=== PATIENT | female | born 1965 | race Caucasian/White ===

== ENCOUNTER 2024-02-23 08:56 | Outpatient (CLI) | payer OTHER, SELFPAY ==
[2024-02-23 09:20] VITALS: PULSE 88; RESP 18; O2SAT 98
[2024-02-23] MEDS: albuterol 2.5 mg/3 mL Neb INHALATION (09:20)
[2024-02-23 09:25] VITALS: PULSE 85
== END 2024-02-23 08:57 | disposition home or self-care (01) ==
PROVIDERS: Visit Provider Dermatology
DX: R06.00 Dyspnea, unspecified (principal)
CPT/HCPCS: 94060; J7613

== ENCOUNTER 2024-03-19 10:10 | Outpatient (CLI) | payer OTHER, SELFPAY ==
--- NOTE | 2024-03-19 10:20 | XR_ITS ---
WS: [id number] HIP WITH PELVIS LEFT TECHNIQUE: 3 views of the left hip with pelvis CLINICAL INFORMATION: L HIP PAIN COMPARISON: None. FINDINGS: Osteopenia. Prior postoperative changes RIGHT GINO. Advanced degenerative arthritis LEFT hip with subc hondral cystic change and advanced joint space narrowing. Hypertrophic changes about the LEFT acetabu lum. Degenerative arthritis lower lumbar spine. Pelvic phleboliths. XR/XR hip LT 2-3V wo/w pel* [id number] IMPRESSION: 1. Osteopenia. 2. Prior RIGHT GINO. 3. Advanced arthritis LEFT hip with joint space narrowing and subchondral cyst ic change involving the femoral head. Hypertrophic changes about the LEFT aceta bulum. Tonnis classification: grade 3: large cysts in femoral head/acetabulum or joint space obliteration/severe narrowing or severe femoral head deformity vs AVN
== END 2024-03-19 10:11 | disposition home or self-care (01) ==
LOC: RAD 10:13
PROVIDERS: PCP Nurse Practitioner; Visit Provider Dermatology
DX: M13.852 Other specified arthritis, left hip (principal); M25.552 Pain in left hip
CPT/HCPCS: 73502

== ENCOUNTER 2025-08-12 18:24 | Inpatient (IN) | payer SELFPAY ==
[2025-08-12] VITALS (45 sets, daily range): BP systolic 86–205; BP diastolic 61–148; PULSE 74–115; RESP 16–36; TEMP 36.6; O2SAT 93–100; BMI 27.4
--- NOTE | 2025-08-12 18:22 | ECG_ITS ---
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 Measurements Intervals [place] Rate: 106 P: 27 [place]: 170 QRS: -32 QRSD: 98 T: -13 QT: 359 QTc: 479 Interpretive Statements SINUS TACHYCARDIA LEFT AXIS DEVIATION [QRS AXIS < -30] LEFT VENTRICULAR HYPERTROPHY AND ST-T CHANGE [VOLTAGE CRITERIA PLUS ST/T ABNORMALITY] POSSIBLE SEPTAL MYOCARDIAL INFARCTION , POSSIBLY ACUTE [30 ms Q WAVE IN V1/V2] ACUTE CO Possible high lateral wall CO No previous ECG available for comparison Electronically Signed On 08-12-2025 23:24:23 CDT by Bianca Hubbard M.D. [email or web address]
--- NOTE | 2025-08-12 18:26 | XRR_ITS ---
PROCEDURE INFORMATION: Exam: XR Chest Exam date and time: 08/12/2025 6:33 PM Age: 60 years old Clinical indication: Pain; Chest pressure; Stemi; Additional info: Chest pain TECHNIQUE: Imaging protocol: Radiologic exam of the chest. Views: 1 view. COMPARISON: No relevant prior studies available. FINDINGS: Lungs: Unremarkable. No consolidation. Low lung volumes. Pleural spaces: Unremarkable. No pleural effusion. No pneumothorax. Heart/Mediastinum: Unremarkable. No cardiomegaly. Bones/joints: Unremarkable. Single-view. XR/XR chest 1V portable [id number] IMPRESSION: No acute findings.
--- NOTE | 2025-08-12 18:30 | ED_ITS ---
HPI - Chest Pain 2 General: Chief Complaint: Chest Pain Stated Complaint: stemi Time Seen by Provider: 08/12/25 18:25 History of Present Illness: 60-year-old female with a history of hyp ertension and obesity who presents to the emergency room with chest pain by ambulance from home. EMS had called and prior to arrival and EKG appeared that she is having a STEMI. STEMI was called at that time in the field. Her pain has worsened. Initially was substernal and now radiates to her shoulders. She has had some nausea but no vomiting. She is very diaphoretic. No known cardiac history Related Data Home Medications ?Medication ?Instructions ?Recorded ?Confirmed albuterol sulfate 90 mcg/actuation 2 puff inhalation Q 4H PRN 08/03/23 08/03/23 aerosol inhaler amlodipine 2.5 mg tablet 2.5 mg PO DAILY 08/03/23 benzonatate 100 mg capsule 100 mg PO TID PRN cough 08/03/23 gabapentin 100 mg capsule 300 mg PO .HS 08/03/2308/03 (Neurontin) lisinopril 20 1 tab PO DAILY 08/03/2307/09 mg-hydrochlorothiazide 12.5 mg tablet metoprolol succinate 50 mg 50 mg PO DAILY 08/03/23 tablet,extended release 24 hr ondansetron HCl 8 mg tablet 8 mg PO Q8H PRN 08/03/23 0 08/03/23 rosuvastatin 40 mg tablet 40 mg PO DAILY 08/03/2307/09 Allergies Allergy/AdvReac Type Severity Reaction Status Date / Time No Known Allergies Allergy Verified 08/03/23 08:51 Review of Systems 2 Narrative: Constitutional symptoms: Negative except as documented in HPI. Skin symptoms: Negative except as documented in HPI. Eye symptoms: Negative except as documented in HPI. ENMT symptoms: Negative except as documented in HPI. Respiratory symptoms: Negative except as documented in HPI. Cardiovascular symptoms: Negative except as documented in HPI. Gastrointestinal symptoms: Negative except as documented in HPI. Genitourinary symptoms: Negative except as documented in HPI. Musculoskeletal symptoms: Negative except as documented in HPI. Neurologic symptoms: Negative except as documented in HPI. Psychiatric symptoms: Negative except as documented in HPI. Endocrine symptoms: Negative except as documented in HPI. PFSH ED 2 PFSH: Medical History (Updated 08/12/25 @ 18:56 by Bibi Hobbs MD) Hypertension Family History Mother Hypertension Social History Smoking and tobacco/nicotine status: current every day tobacco/nicotine user cigarettes Packs smoked per day: 1 Physical Exam 2 Narrative: EXAM NARRATIVE: General: Alert, no acute distress. Skin: Warm, dry. Head: Normocephalic, atraumatic. Neck: Supple, trachea midline. Eye: Extraocular movements are intact. Ears, nose, mouth and throat: mucosa moist. Cardiovascular: Regular, Normal peripheral perfusion. Respiratory: Lungs are clear to auscultation, respirations are non-labored, breath sounds are equal, Symmetrical chest wall expansion. Gastrointestinal: Soft, Nontender, Non distended Musculoskeletal: Normal ROM, no deformity. Neurological: Alert and oriented, No focal neurological deficit observed. Psychiatric: Cooperative, appropriate mood & affect. Course 2 Vital Signs: Vital signs: Vital Signs Temperature 98 F 08/12/25 18:28 Pulse Rate 115 H 08/12/25 18:55 Respiratory Rate 17 08/12/25 18:55 Blood Pressure 201/148 08/12/25 18:55 Pulse Oximetry 95 08/12/25 18:55 Oxygen Delivery Me thod Room Air 08/12/25 18:55 MDM - Chest Pain Medical Decision Making Differential diagnosis for patient with chest pain includes but is not limited to and based on the above HPI, review of systems and physical exam: Pneumonia. unstable angina. angina. Acute coronary syndrome / CT. Pulmonary embolism. Costochondritis / musculoskeletal. Pleurisy. Pericarditis. Esophageal spasm. Pancreatis. Cholecystitis. Orders placed to evaluate differential diagnosis based on the above differential, HPI and physical exam EKG: Time 1823. Rate 106. Sinus tachycardia. ST elevation anterior leads with reciprocal depression, no ectopy, normal MA & QRS intervals, this was reviewed and interpreted by myself the emergency room physician at 1825. 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 No leukocytosis. No anemia. Remainder of labs pending at the time patient went to the [facility] I reviewed the patient's medical record. Consultation: I spoke with Dr. Rosales who is on-call for cardiology. He is taking the patient to the [facility]. Assessment and plan: STEMI Chest pain Accelerated hypertension ? IV labetalol, 600 Plavix, 600 mg p.o. Plavix, aspirin, heparin bolus -I discussed the patient with the hospitalist on-call who is admitting the patient. - Discussed findings and plan with patient. Answered any questions. - All laboratory values were reviewed and interpreted personally by myself, the ER physician - All imaging was reviewed and interpreted personally by myself, the ER physician. - Evaluation and treatment of this problem were appropriate in the emergency setting Lab Data 08/12/25 18:36 08/12/25 18:36 Laboratory Results WBC 8.54 10^3/uL (3.29-11.43) 08/12/25 18:36 RBC 5.67 10^6/uL (3.85-5.65) H 08/12/25 18:36 Hgb 16.20 g/dL (11.27-16.99) 08/12/25 18:36 Hct 48.8 % (36-47) H 08/12/25 18:36 MCV 86.1 fl (85-98) 08/12/25 18:36 MCH 28.6 pg (27-33) 08/12/25 18:36 MCHC 33.2 g/dL (30-55) 08/12/25 18:36 RDW 12.6 % (12.1-15.1) 08/12/25 18:36 Plt Count 277 10^3/cmm (157-399) 08/12/25 18:36 MPV 10.0 fL (7.4-10.4) 08/12/25 18:36 Neut % (Auto) 67.3 % 08/12/25 18:36 Lymph % (Auto) 21.9 % 08/12/25 18:36 Noble % (Auto) 6.3 % 08/12/25 18:36 Eos % (Auto) 2.8 % 08/12/25 18:36 Baso % (Auto) 1.5 % 08/12/25 18:36 Neut # (Auto) 5.74 10^3/uL (1.8-7.7) 08/12/25 18:36 Lymph # (Auto) 1.9 10^3/uL (0.8-4.8) 08/12/25 18:36 Noble # (Auto) 0.5 10^3/uL (0.2-0.9) 08/12/25 18:36 Eos # (Auto) 0.2 10^3/uL (0.0-0.8) 08/12/25 18:36 Baso # (Auto) 0.1 10^3/uL (0.0-0.1) 08/12/25 18:36 Nucleated RBC % (auto) 0 % 08/12/25 18:36 Nucleated RBCs # 0.0 /100WBC 08/12/25 18:36 XR interpretation done by ED provider, pending radiology final review Discharge Plan Discharge Patient Disposition: Admitted As Inpatient Clinical Impression: STEMI (ST elevation myocardial infarction), Hypertension Condition: Stable Coding Level of Care Code ED Clinical Nurse Occupational Medicine for Chg Fwd Heart Score HEART Score Components History: Highly Suspicious EKG: Significant ST-deviation Age: 45-64 yrs Risk Factors: 1 or 2 Risk Factors Troponin: Baseline Trop <16 ng/L HEART Score RESULT HEART Score: 6
--- NOTE | 2025-08-12 18:36 | XACV_ITS ---
Exam Room: 2 Ht: 157 cm Wt: 82 kg BSA: 1.92 m2 Gender: Female : 1965 Exam Priority: Routine Procedure(s): Procedure Description: Diagnostic procedure Procedure Description: PCI procedure Procedure Description: Coronary IVUS Procedure Description: Drug Eluting Coronary Stent Procedure Description: PTCA Procedure Description: Coronary Thrombectomy Procedure Description: Miscellaneous Procedure Description: Angio-Seal Procedure Description: ACT Procedure Description: Coronary Angiography Anjel FLOYD; Diagnostic Cath Status: Emergency Diagnostic Findings * Left Main has mild luminal irregularities. * Proximal Left Anterior Descending: total thrombotic occlusion, SHERIDAN: 0 flow. * Mid Right Coronary Artery: severe 80-90% stenosis, SHERIDAN: 3 flow. * Mid Circumflex to Distal Circumflex: severe 90% stenosis, SHERIDAN: 3 flow. * Coronary angiography shows right dominance. PCI Status: Emergency PCI Indication: STEMI - Immediate PCI for STEMI Interventional Findings * Procedure detail: Left main artery was engaged with XB 3.5 guide catheter. Heparin was administered to maintain anticoagulation. We crossed totally occluded proximal LAD with a run-through guidewire. Pronto aspiration catheter was used to perform manual thrombectomy. Post thrombectomy, there was slow/no reflow in left circumflex artery, likely secondary to thrombus embolization. Patient became unstable with severe hypotension, no palpable pulse. CPR was started. We wired the LCx and did ballooning. Epi and neosynephrine given. Total CPR time of less than a minute. Flow in left circumflex artery was restored. Patient's blood pressure normalized. We then performed balloon angioplasty of proximal to mid LAD with 2.5x15 mm semicompliant balloon. IVUS was used to size the artery. This was followed by ballooning with 2.5x20mm NC balloon. We then placed a 2.75 x 30 mm resolute Sally drug-eluting stent from proximal to mid LAD. There was still residual stenosis at distal edge so we treated that with 2.5 x 15 mm EDGARDO. The stents were postdilated with 3.0 x 27 mm NC balloon. Distal edge dissection was noted. A third overlapping 2.25 x 15 mm resolute Sally drug-eluting stent was placed. At this time final angiogram showed excellent stent expansion and SHERIDAN-3 flow. 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 * Proximal Left Anterior Descendin% stenosis treated with a Balloon, MDT NC EUPHORA RX 2.98Y80TX BALLOON, MDT NC EUPHORA RX 3.72P52QK BALLOON, and MDT R SALLY 2.75X30 EDGARDO. 0% residual stenosis, SHERIDAN: 3 flow. * Mid Left Anterior Descendin% stenosis treated with a MDT R SALLY 2.5X15 EDGARDO, and MDT R SALLY 2.25X15 EDGARDO. 0% residual stenosis, SHERIDAN: 3 flow. * 1st Diagonal: 70% stenosis treated with a AB MINI TREK 2.00X12 RX BALLOON. 0% residual stenosis, SHERIDAN: 3 flow. Conclusions 1. Total thrombotic occlusion of proximal LAD S/p PCI with 3 stents. Severe mid RCA stenosis. Reviewed will perform staged PCI. Also has mid to distal circumflex artery with severe stenosis. Plan for staged PCI. 2. Proximal Left Anterior Descending was treated with a Balloon, Balloon, Balloon, and Drug Eluting Stent. 3. Mid Left Anterior Descending was treated with a Drug Eluting Stent, and Drug Eluting Stent. 4. 1st Diagonal was treated with a Balloon. Recommendations * Dual antiplatelet therapy with aspirin and plavix. * Aggrastat for 4 hours. * Order echocardiogram. * Transfer to ICU. Interventional RX Recommendation: PCI w/o planned CABG Diagnostic RX Recommendation: PCI w/o planned CABG Anticoagulation: Heparin Pressures Phase:Rest AO : 142 / 98 ( 117 ) @ 3:27:46 PM 151 / 136 ( 144 ) @ 3:27:46 PM 197 / 158 ( 175 ) @ 3:27:46 PM 114 / 87 ( 100 ) @ 3:27:46 PM 104 / 85 ( 94 ) @ 3:27:46 PM Clinical Evaluation EBL: 5mL-10mL Procedural Details Pre-Procedure Time Out. Identified patient by full name and date of as verbalized by the patient/guarantor. Does the consent match the physician's order: N/A Emergent; Informed Consent not obtained due to time critical life threat. Accurate & Complete Informed Consent: N/A Emergent; Informed Consent not obtained due to time critical life threat. Inpatient/Outpatient History & Physical on Chart: N/A Emergent; Informed Consent not obtained due to time critical life threat. If H&P is completed, is and addenduem needed: N/A Emergent; Informed Consent not obtained due to time critical life threat; If yes, is the addendum complete: N/A Emergent; Informed Consent not obtained due to time critical life threat. Visualize and Verify Site with Patient/Guarantor: N/A. Relevant Radiology Images available: N/A Emergent; Informed Consent not obtained due to time critical life threat. Pre-op teaching completed and patient verbalized understanding. The risks, benefits, and alternatives of sedation and/or procedure were discussed by physician. The patient agrees to continue. Procedure started. [facility] Clinical Fraility Score: 4: Vulnerable. Employee Communications Coordinator Indications: ACS <= 24 hours. Chest Pain Symptom Assessment: Typical Angina Symptoms. Cardiovascular Instability: Yes, if yes, Persistant Ischemic Symptoms. Correct patient, site and procedure confirmed by cath team. PERRLA. 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 Lungs clear x 5 lobes. IV Site on Arrival: 20 gauge in the right anticubital. IV Site on Arrival: 20 gauge in the left anticubital. IV Fluids: 0.9% NaCl at KVO. 0 mL infused prior to laboratory courier. Pre Procedural Pulses: right radial was 2+. Oxygen started at 2liters/min via nasal canula. AP pads on from the ED. right groin was prepped with chloroprep then draped in the usual sterile fashion. right radial was prepped with chloroprep then draped in the usual sterile fashion. Baseline sample Acquired. HR: 77 BPM. Physician notified. Patient's family in the laboratory courier waiting.room. Dr. Rosales will update at the completion of the procedure. Equipment: 6F - Radial. Cardiac Cath Pack. ACIST Manifold Kit Model BT 2000. Heparinized Saline (2 units/mL), 1000 mL bag. Physician arrived. Physician scrubbed in. Immediate Pre-Procedure Time Out. Correct Patient: N/A Emergent; Informed Consent not obtained due to time critical life threat; Correct Procedure: N/A Emergent; Informed Consent not obtained due to time critical life threat; Correct Site: N/A Emergent; Informed Consent not obtained due to time critical life threat; Correct Patient Position: N/A Emergent; Informed Consent not obtained due to time critical life threat; Correct Supplies: N/A Emergent; Informed Consent not obtained due to time critical life threat; Dried Flammable Prep: N/A Emergent; Informed Consent not obtained due to time critical life threat; Blood Products Available: N/A Emergent; Informed Consent not obtained due to time critical life threat;. Lidocaine 1% infiltrated to the right radial. Current Diagnosis : STEMI. Arterial access obtained. PCI Indication: STEMI. 6 turkish XB 3.5 guide catheter was inserted over the the exchange J wire. Catheter out over the exchange J wire. Aborting radial access, will move to femoral access. A TR Band was successful obtaining hemostatsis at the Right Radial artery insertion site. Lidocaine 1% infiltrated to the right groin. Arterial access obtained with micropuncture set using ultrasound guidance. 6 turkish XB 3.5 guide catheter was inserted over the exchange J wire. Runthrough guidewire was advanced through the guide catheter to lesion in the prox LAD. Pronto aspiration catheter in OTW. Aspiration of the Prox LAD performed. Pronto aspiration catheter out OTW. Inflation number : 1 A AB TREK 2.50X20 RX BALLOON was prepped and advanced across the Prox LAD , then inflated to 12 TAIWO for 0:11 seconds. Balloon out. Runthrough #2 guidewire was advanced through the guide catheter to lesion in the prox Circ. Inflation number: 1 The AB TREK 2.50X20 RX BALLOON was reinflated across the 1st Ob Blanche, to 0 TAIWO for 0:00 seconds. Inflation number: 2 The AB TREK 2.50X20 RX BALLOON was reinflated across the 1st Ob Blanche, to 0 TAIWO for 0:01 seconds. code blue. IVUS catheter in OTW. Runthrough #2 out. IVUS of the LAD performed. IVUS catheter out OTW. Inflation number : 2 A MDT NC EUPHORA RX 2.19S65FI BALLOON was prepped and advanced across the Prox LAD , then inflated to 12 TAIWO for 0:09 seconds. Inflation number: 3 The MDT NC EUPHORA RX 2.74D15HS BALLOON was reinflated across the Prox LAD, to 14 TAIWO for 0:12 seconds. Balloon out. Results checked. IVUS catheter in OTW. IVUS of the LAD performed. IVUS catheter out OTW. OXY mask placed at 15 lpm. Inflation Number : 6 A MDT R SALLY 2.75X30 EDGARDO -Lot Number# [id number] Exp. was prepped and advanced across the Prox LAD. The stent was deployed at 12 TAIWO for 0:20 seconds. Stent balloon out over wire. IVUS catheter in OTW. IVUS of the LAD performed. IVUS catheter out OTW. Family updated by Kellee Ospina RN. Inflation Number : 1 A MDT R SALLY 2.5X15 EDGARDO -Lot Number# [id number] Exp. was prepped and advanced across the Mid LAD. The stent was deployed at 12 TAIWO for 0:14 seconds. Stent balloon out over wire. Guideliner in OTW. Inflation number : 4 A MDT NC EUPHORA RX 3.32Z68PF BALLOON was prepped and advanced across the Prox LAD , then inflated to 12 TAIWO for 0:16 seconds. Inflation number: 5 The MDT NC EUPHORA RX 3.47P96BO BALLOON was reinflated across the Prox LAD, to 18 TAIWO for 0:12 seconds. Balloon out. Wire out. Runthrough guidewire was advanced through the guide catheter to lesion in the prox LAD. Inflation Number : 2 A HATTIE Dominguez SALLY 2.25X15 EDGARDO -Lot Number# [id number] Exp. was prepped and advanced across the Mid LAD. The stent was deployed at 12 TAIWO for 0:16 seconds. Stent balloon out over wire. Results checked. Runthrough repositioned to diaganol. Inflation number : 1 A AB MINI TREK 2.00X12 RX BALLOON was prepped and advanced across the 1st Diag , then inflated to 10 TAIWO for 0:13 seconds. Balloon out. Runthrough repositioned to CX, unable to cross. ACT drawn. Results out of range HI. Will redraw. Wire out. Guide catheter out OTW. A 5 turkish JR4 catheter in OTW. ACT drawn. Results out of range HI. Multiple views taken of right coronary artery. Catheter removed OTW. A Right femoral angiogram was performed to determine safe placement of closure device. A Angio-Seal VIP ([place]) was successful obtaining hemostatsis at the Right Femoral artery insertion site. Angioseal placed without complications. No signs or symptoms of hematoma noted. Sterile dressing applied per usual sterile fashion. Lot # [id number] Exp. . Post Procedure: right dorsalis pedis pulse Doppled. Post Procedure: right posterior tibial pulse Doppled. PERRLA. 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 No VTE prophylaxis required. Medication's Wasted: Nitro = 49.6 mg. Medication's Wasted: Heparin = 1000 units. Medication's Wasted: Other = Versed 1 mg. Medication's Wasted: Other = Fentanyl 75 mcg. Total IV fluids: 100 mL. Post-op diagnosis: Thrombectomy and EDGARDO to Prox LAD x 1, EDGARDO to Mid LAD x 1. Complications: none. Estimated blood loss: 5mL-10mL. Responsiveness - Normal response to verbal stimuli; alert and oriented, PERRLA. Airway - Unaffected, no intervention required; spontaneous ventilation. Circulation: W/N/L, pulses unchanged. Nausea/Vomiting: No. Vital chart was stopped. Procedure completed. Patient transferred by bed to ICU. Access Site Site: Right Radial artery Sheath Size: 6 Fr Hemostasis Method: TR Band Hemostasis Success: Successful Site: Right Femoral artery Sheath Size: 6 Fr Hemostasis Method: Angio-Seal VIP ([place]) Hemostasis Success: Successful Procedure Medications Start: 6:50 PM Stop: 6:50 PM Medication: Zofran (ondansetron) Amount: 4 mg Route: I.V. Start: 6:51 PM Stop: 6:51 PM Medication: Versed Amount: 1 mg Route: I.V. Start: 6:55 PM Stop: 6:55 PM Medication: Nitrogylcerin Amount: 200 mcg Route: I.A. Start: 7:07 PM Stop: 7:07 PM Medication: Heparin Amount: 4000 units Route: I.V. Start: 7:14 PM Stop: 7:14 PM Medication: Aggrastat 12.5 mg/250 mL Amount: 41 ml Route: I.V. bolus Start: 7:17 PM Stop: 7:17 PM Medication: Neosynephrine Amount: 100 mcg Route: I.V. Start: 7:20 PM Stop: 7:20 PM Medication: Epinephrine Amount: 1 mg Route: I.V. Start: 7:26 PM Stop: 7:26 PM Medication: Hydralazine Amount: 10 mg Route: I.V. Start: 7:27 PM Stop: 7:27 PM Medication: Aggrastat 12.5 mg/250 mL Amount: 14.8 ml/hr Route: I.V. drip Start: 7:58 PM Stop: 7:58 PM Medication: Nitrogylcerin Amount: 200 mcg Route: I.A. Start: 7:58 PM Stop: 7:58 PM Medication: Heparin Amount: 1000 units Route: I.V. Start: 8:18 PM Stop: 8:18 PM Medication: Fentanyl Amount: 25 mcg Route: I.V. I, the attending physician, have reviewed and verified all procedure medications. Yes, all medications given per verbal order Report Signatures Finalized by Parker Rosales MD on 08/13/2025 08:56 AM
[2025-08-12] MEDS: heparin 5,000 unit/mL INJ 1 mL 4000 UNIT IVP (18:40)
[2025-08-12] MEDS: morphine 4 mg/mL SDV 1 mL IVP (18:40)
[2025-08-12] MEDS: labetalol 5 mg/mL SDV 20mL 20 MG IVP (18:41)
--- NOTE | 2025-08-12 18:42 | PM.HP ---
Providers/Chief Complaint Admitting Physician: Parker Rosales MD Primary Care Provider: TARA Martinez Chief Complaint: stemi History of Present Illness Samuel Buck is a 60 year old female with past medical history of hypertension and hyperlipidemia who has been brought by EMS with complaints of chest pain. EKG is consistent with ST elevations in septal and lateral leads with reciprocal changes in inferior leads. Her blood pressure is elevated. She is tachycardic with a heart rate of 106 bpm. Review of Systems Card: Reports: chest pain Medications/Allergies Home Medications ?Medication ?Instructions ?Recorded ?Confirmed ?Last Taken ?Type albuterol sulfate 90 mcg/actuation 2 puff inhalation Q4H PRN 08/03/23 08/03/23 Unknown History aerosol inhaler amlodipine 2.5 mg tablet 2.5 mg PO DAILY 08/03/23 08/03/23 Unknown History benzonatate 100 mg capsule 100 mg PO TID PRN cough 08/03/23 08/03/23 Unknown History gabapentin 100 mg capsule 300 mg PO .HS 08/03/23 08/03/23 Unknown History (Neurontin) lisinopril 20 1 tab PO DAILY 08/03/23 08/03/23 Unknown History mg-hydrochlorothiazide 12.5 mg tablet metoprolol succinate 50 mg 50 mg PO DAILY 08/03/23 08/03/23 Unknown History tablet,extended release 24 hr ondansetron HCl 8 mg tablet 8 mg PO Q8H PRN 08/03/23 08/03/23 Unknown History rosuvastatin 40 mg tablet 40 mg PO DAILY 08/03/23 08/03/23 Unknown History Allergies Allergy/AdvReac Type Severity Reaction Status Date / Time No Known Allergies Allergy Verified 08/03/23 08:51 PFSH Acute PFSH: Medical History (Updated 08/12/25 @ 18:56 by Bibi Hobbs MD) Hypertension Family History Mother Hypertension Social History Smoking and tobacco/nicotine status: current every day tobacco/nicotine user cigarettes Packs smoked per day: 1 Vitals/I&O/Wt Last Vital Signs Temp 98 F 08/12/25 18:28 Pulse 111 H 08/12/25 18:28 Resp 16 08/12/25 18:40 BP 205/99 08/12/25 18:28 Pulse Ox 97 08/12/25 18:28 O2 Del Method Room Air 08/12/25 18:28 Weight last 48 hrs Weight 160 lb Physical Exam Narrative: GENERAL: Patient is alert, awake and oriented x3. [] NECK: No jugular vein distension. [] HEENT: No cyanosis. No icterus. No pallor. [] HEART: Regular S1 and S2. LUNGS: Clear to auscultate bilaterally. [] CENTRAL NERVOUS SYSTEM: Grossly nonfocal. [] EXTREMITIES: Lower extremities with no edema bilaterally. Data 08/12/25 18:36 08/12/25 18:36 A&P Assessment and plan 1. STEMI (ST elevation myocardial infarction): 2. Hypertension: Plan: Patient has presented with acute ST elevation [place] with elevations in septal and lateral leads. Patient going emergently for cardiac catheterization with PCI Patient received loading doses of aspirin, Plavix and heparin bolus We will obtain echocardiogram post procedure PDMP PDMP Reviewed: Not Reviewed Attestations Medical Necessity Statement*: Care expected to cross 2 midnights. Patient has presented with acute STEMI and going for emergent cardiac catheterization with PCI Coding Level of Care Code Acute Code for [facility] Diagnoses STEMI (ST elevation myocardial infarction) I21.3 Hypertension I10
[2025-08-12 18:46] LABS: Hematocrit 48.8 % (36-47); Hemoglobin 16.20 g/dL (11.27-16.99); Mean Corpuscular HGB Conc 33.2 g/dL (30-55); Mean Corpuscular Hemoglobin 28.6 pg (27-33); Mean Corpuscular Volume 86.1 fl (85-98); Nucleated Red Blood Cells % 0 %; Platelet Count 277 10^3/cmm (157-399); Red Blood Count 5.67 10^6/uL (3.85-5.65); White Blood Count 8.54 10^3/uL (3.29-11.43)
[2025-08-12 18:58] LABS: INR 0.89 (0.8-1.2); Partial Thromboplastin Time 28.5 SECONDS (23.9-36.7); Prothrombin Time 12.70 SECONDS (12.1-14.9)
[2025-08-12 19:10] LABS: Troponin(5th) Baseline 44 ng/L (0-10)
[2025-08-12 19:17] LABS: Alanine Aminotransferase 21 U/L (0-33); Albumin Level 4.3 g/dL (3.5-5.2); Alkaline Phosphatase 135 U/L (35-105); Aspartate Amino Transferase 26 U/L (0-32); Blood Urea Nitrogen 22 mg/dL (8-23); Calcium 10.2 mg/dL (8.5-10.5); Carbon Dioxide 22 mmol/L (22-29); Chloride 103 mmol/L (98-107); Creatinine Clr Calc Pharmacy 48.6782; Globulin 2.5 g/dL (1.3-4.6); Glucose 144 mg/dL (65-115); Lipase 34 U/L (13-60); NT Pro B Type Natriuretic Pept 2428 pg/mL (0-125); Osmolality Calculated 296 mOsm/kg (285-295); Sodium 140 mmol/L (136-145); Total Protein 6.8 g/dL (6.6-8.7)
[2025-08-12 19:36] LABS: Anion Gap 19.4 (5-19); Potassium 4.4 mmol/L (3.5-5.1)
--- NOTE | 2025-08-12 21:03 | PM.PROC ---
Procedure Note: Date of procedure: 08/12/25 Pre-procedure diagnosis: STEMI Post-procedure diagnosis: other (Total thrombotic occlusion of proximal LAD status post PCI with 3 stents.) Procedure: Proximal LAD has total thrombotic occlusion. Status post PCI with 3 stents. Patient had distal embolization of thrombus post manual thrombectomy. Flow in both left circumflex artery and LAD got very slow briefly. Patient went into PEA. Less than 1 minutes of chest compressions and 1 dose of epi was administered. Pulse came back and blood pressure increased. Patient was conscious immediately. Was not intubated. Distal circumflex has severe stenosis. Mid RCA has severe stenosis. These vessels will be treated as a staged procedure Dual antiplatelet therapy with aspirin and plavix High intensity statin therapy Aggrastat for 4 hours Performing Provider: Parker Rosales Estimated blood loss (mL): 10 Complications: None Condition: stable Disposition: ICU Coding Level of Care Code Acute Code for [facility]
[2025-08-12] MEDS: ondansetron 2 mg/ML SDV 2 mL 4 MG IVP (21:56)
--- NOTE | 2025-08-12 22:16 | PM.CONSULT ---
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 Cardiology was notified and Dr. Rosales took the patient to [facility] as a primary patient and started cardiac catheterization. 1 stent placed on the proximal LAD and 2 stents placed in the mid LAD and during this procedure patient arrested only briefly for 30 seconds CPR was started and the patient received 1 mg of epinephrine and came back and awake and alert with no issues did not even have a chance to plan on any intubation and patient did not needed. The ICU staff called Dr. Rosales that the patient has thrown up clots of blood and for that reason hospitalist were consulted to further evaluate and optimize. I have seen and evaluated patient here in the ICU bed 12. The primary nurse related that the patient was reportedly threw up with the EMS on route to the hospital and the details of the colon of the vomitus was not related. Following the vomitus patient then vomited while in the ICU post procedure and looking whitaker with a systolic blood pressure in the 80s. I gave patient 500 mL of normal saline and the blood pressure came up consistently to be 105 systolic and 106 systolic with a mean in the 90s patient verbalized that he she is feeling much better than before. Patient is very fair complected and does have a warm Color not sher at this time of my evaluation. Patient received a bolus of 80 mg of Protonix and initiated on 40 mg IV Protonix twice daily with the next dose in the morning. Patient denies any chest pain denies any other discomfort. Verbalized feeling better on my repeated questions. H&H is drawn and pending at this time. Patient admitting hemoglobin was 16, patient is a smoker. Patient denies of any sore throat Review of Systems Narrative: System review upon 10 organ review were significant for cardiovascular system with acute coronary syndrome with ST elevation [place] and status post stent placement and also bright red blood emesis significant for gastrointestinal system Medications/Allergies Home Medications ?Medication ?Instructions ?Recorded ?Confirmed ?Last Taken ?Type albuterol sulfate 90 mcg/actuation 2 puff inhalation Q4H PRN 08/03/23 08/03/23 Unknown History aerosol inhaler amlodipine 2.5 mg tablet 2.5 mg PO DAILY 08/03/23 08/03/23 Unknown History benzonatate 100 mg capsule 100 mg PO TID PRN cough 08/03/23 08/03/23 Unknown History gabapentin 100 mg capsule 300 mg PO .HS 08/03/23 08/03/23 Unknown History (Neurontin) lisinopril 20 1 tab PO DAILY 08/03/23 08/03/23 Unknown History mg-hydrochlorothiazide 12.5 mg tablet metoprolol succinate 50 mg 50 mg PO DAILY 08/03/23 08/03/23 Unknown History tablet,extended release 24 hr ondansetron HCl 8 mg tablet 8 mg PO Q8H PRN 08/03/23 08/03/23 Unknown History rosuvastatin 40 mg tablet 40 mg PO DAILY 08/03/23 08/03/23 Unknown History Allergies Allergy/AdvReac Type Severity Reaction Status Date / Time No Known Allergies Allergy Verified 08/03/23 08:51 Current Medications Generic Name Dose Route Start Last Admin Trade Name Freq PRN Reason Stop Dose Admin Sodium Chloride 1,000 mls @ 100 mls/hr 08/12/25 21:15 08/12/25 21:57 Sodium Chloride 0.9% IV 100 mls/hr .Q10H MILEY Administration Ondansetron HCl 4 mg 08/12/25 21:36 08/12/25 21:56 Ondansetron 2 Mg/Ml Sdv 2 Ml IVP 4 mg Q6H PRN Administration NAUSEA AND VOMITING PFSH Acute PFSH: Medical History Hypertension Family History Mother Hypertension Social History Smoking and tobacco/nicotine status: current every day tobacco/nicotine user cigarettes Packs smoked per day: 1 Vitals/I&O/Wt Last Vital Signs Temp 98 F 08/12/25 18:28 Pulse 80 08/12/25 22:00 Resp 31 H 08/12/25 22:00 BP 93/77 08/12/25 22:00 Pulse Ox 98 08/12/25 22:00 O2 Del Method Nasal Cannula 08/12/25 20:52 O2 Flow Rate 6 08/12/25 20:32 Weight last 48 hrs Weight 94.4 kg Weight 72.575 kg Physical Exam Narrative: Generally patient is in no apparent distress relies supine in bed with the head of the bed up at 45 degrees. Patient looks slightly pale but at the same time with warm color and warm to touch on the face and chest Vital sign stabilizing systolic blood pressure in the 80s went up to 106 systolic with a MAP of 93 post IV bolus of 500 cc/h x 1 of normal saline HEENT normocephalic/atraumatic neck neck is supple cardiovascular heart rate is regular lungs are pretty much clear abdomen soft nontender nondistended unremarkable extremities are intact and right groin region intact with Angio-Seal patient has good pulses in the affected extremities. Data 08/12/25 18:36 08/12/25 18:36 A&P Assessment and plan 1. Hematemesis: 2. STEMI (ST elevation myocardial infarction): 3. Hypertension: 4. Cardiopulmonary arrest: 5. Transient hypotension: Plan: #1 Acute hematemesis with streaks of clots of blood - Patient had some vomiting en route to the emergency room with EMS preprocedure - H&H obtained and pending - Protonix 80 mg IV bolus given - Protonix 40 mg IV every 12 next dose tomorrow morning - H&H presenting was 16 for the hemoglobin, patient is a smoker - Will follow up and monitor - Patient might have had a violent vomiting and route to the emergency room because send some bleed in the esophagus - Patient did not have coffee ground emesis bed bright red blood with clots - Will continue to monitor and optimize - Surgery may follow through with this patient outpatient or when these acute processes over if patient continues to not have any emesis #2 ST elevation [place] - Primary patient of cardiology - Cardiology is managing patient status post cardiac catheterization with 1 stent placement to proximal LAD And another 2 stent placement to mid LAD at cardiac catheterization -Patient is following up with care as directed by cardiology #3 Intra procedural transient cardiopulmonary arrest, 30 seconds -Brief chest compression with 1 mg of epinephrine with patient responding and awake -Patient was not intubated and did okay -Patient in ICU for close monitoring and care #4 Transient hypotension in ICU -Patient recovered with 500 cc of normal saline bolus -Patient verbalized feeling better and doing okay #5 Transient cardiac respiratory arrest - Intraoperatively, critical zone quickly with a brief chest compression and 1 mg of IV epinephron - Patient recovered fully awake and alert able to answer questions and doing okay. #6 History of hypertension -Patient now normotensive -Does not need any antihypertensive medication at this time -Monitor blood pressure to continue to perfuse the kidney #7 GI and DVT prophylaxis in place PDMP PDMP Reviewed: Not Reviewed Consult Attestations Medical Necessity Statement: Patient is status post myocardial infarction and needed at least 2 midnights for further optimization of care along with hematemesis likely esophagus bleed Coding Level of Care Code 14000 Diagnoses Hematemesis K92.0 STEMI (ST elevation myocardial infarction) I21.3 Hypertension I10 Cardiopulmonary arrest I46.9 Transient hypotension I95.9 Time Spent (min) 50
[2025-08-12 22:49] LABS: Hematocrit 39.2 % (36-47); Hemoglobin 12.90 g/dL (11.27-16.99)
[2025-08-13] VITALS (109 sets, daily range): BP systolic 84–166; BP diastolic 56–115; PULSE 73–116; RESP 12–43; TEMP 35.5–37.6; O2SAT 82–100
--- NOTE | 2025-08-13 00:09 | ECG_ITS ---
[employer] Test Date: 2025-08-13 Pat Name: Samuel Buck Department: Room: ICU12 Gender: Female Marketing Associate: : 1965 Requested By: Bibi Ruffin Order Number: [id number] Jose MD: Bianca Hubbard M.D. Measurements Intervals [place] Rate: 80 P: -19 MS: 148 QRS: 50 QRSD: 103 T: 123 QT: 486 QTc: 563 Interpretive Statements SINUS RHYTHM WITH OCCASIONAL VENTRICULAR PREMATURE COMPLEXES SEPTAL MYOCARDIAL INFARCTION , PROBABLY RECENT [40+ ms Q WAVE IN V1/V2] ACUTE IL Recent high lateral wall IL Compared to ECG 08/12/2025 18:22:32 Ventricular premature complex(es) now present Sinus tachycardia no longer present Left-axis deviation no longer present Left ventricular hypertrophy no longer present ST (T wave) deviation no longer present Myocardial infarct finding still present Electronically Signed On 08-13-2025 23:56:41 CDT by Bianca Hubbard M.D. [email or web address]
--- NOTE | 2025-08-13 01:04 | PC.NURSE ---
[address] Rosales notified. zofran ordered. Per MD he will consult with dr. kelly 2144 Dr. Rosales at bedside. hematoma noted at femoral site. patients color noted. no new orders at this time 2210 Dr kelly called. requested at bedside from RN. BP dropping. patients color noted. 500 cc bolus ordered. 2[address] Dr kelly at bedside. H&H ordered 2345 Dr kelly notified of hgl drop 16.2 to 12.9. Q4h H&H ordered 0015 TR band removed. radial pulse good. no hematoma radially. dressing placed
[2025-08-13 02:07] LABS: Troponin 5 6HR > 10000 ng/L (0-10); Troponin 5 6HR Delta 9956.0 ng/L (0-12)
--- NOTE | 2025-08-13 02:59 | CTR_ITS ---
PROCEDURE INFORMATION: Exam: CTA Abdomen and Pelvis With Contrast Exam date and time: 08/13/2025 3:13 AM Age: 60 years old Clinical indication: Injury or trauma; Additional info: Abd pain and hematemesis TECHNIQUE: Imaging protocol: Computed tomographic angiography of the abdomen and pelvis with contrast. Exam focused on the arteries. 3D rendering (Not supervised by radiologist): MIP and/or 3D reconstructed images were created by the technologist. Radiation optimization: All CT scans at this facility use at least one of these dose optimization techniques: automated exposure control; mA and/or kV adjustment per patient size (includes targeted exams where dose is matched to clinical indication); or iterative reconstruction. Contrast material: OMNI 350; Contrast volume: 100 ml; Contrast route: INTRAVENOUS (IV); COMPARISON: CR XR hip LT 2-3V wo/w pel* [id number] 03/19/2024 10:31 AM RADIATION DOSE METRICS: Total DLP (mGy-cm): 1307.95 FINDINGS: Lungs: Patchy peripheral distribution of ground-glass opacification associated with the lungs bilaterally is noted. Parenchymal opacification associated with the lower lobes bilaterally, to a greater degree on the right side is also noted. Pleural spaces: There is no evidence of pleural effusion or pneumothorax. Pulmonary arteries: There is no evidence of pulmonary embolism. Heart: An arterial stent has been applied to the left anterior descending artery. There is no evidence of right heart strain. Aorta: Suboptimal opacification of the abdominal aorta is noted. The contrast column fades further distally at the distal abdominal aorta extending into the iliac vessels bilaterally. Atheromatous calcific plaque associated with the infrarenal abdominal aorta extends into the iliac arteries bilaterally. Celiac and mesenteric arteries: No occlusion or significant stenosis. Renal arteries: No occlusion or significant stenosis. Right iliac arteries: Suboptimal opacification. Left iliac arteries: Suboptimal opacification. Liver: No mass. Gallbladder and biliary ducts: There is high density material throughout the gallbladder. This likely represents vicarious excretion related to the recent angiographic procedure. Associated cholelithiasis is not excluded. No ductal dilation. Pancreas: Unremarkable. No mass. No ductal dilation. Spleen: Unremarkable. No splenomegaly. Adrenal glands: Unremarkable. No mass. Kidneys and ureters: Excreted contrast associated with the kidneys bilaterally is noted. The right kidney is atrophic with a associated cortical scarring. Stomach and bowel: Unremarkable. No obstruction. No mucosal thickening. Appendix: No evidence of appendicitis. Intraperitoneal space: There is a retroperitoneal hemorrhage on the right side. Infiltrative high density material representing hemorrhage in the retroperitoneum on the right side is noted. The infiltrative changes extend into the right groin. Lymph nodes: Unremarkable. No enlarged lymph nodes. Urinary bladder: Excreted contrast associated with the urinary bladder is noted Reproductive: Unremarkable as visualized. Bones/joints: There is a right total hip replacement. Associated hardware artifact is noted. 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 Soft tissues: Unremarkable. CT/CT [facility]dpel [id number] IMPRESSION: 1. There is retroperitoneal hemorrhage on the right side. There are diffuse infiltrative hemorrhagic changes which extend into the right groin. Recent arterial catheterization is suspected. 2. Suboptimal opacification of the abdominal aorta is noted with limited opacification of the iliac vessels bilaterally. Further limitation resulting from hardware artifact related to right total hip replacement is also noted. Hence, no evidence of active bleeding is appreciated, though this is not excluded. 3. Vicarious excretion of contrast associated with the gallbladder is noted and there is evidence of bilateral renal excretion and opacification of the urinary bladder. This indicates recent administration of iodinated contrast, possibly related to recent angiographic evaluation using right groin access. 4. Bilateral pulmonary parenchymal consolidation associated with the lower lobes is noted. This may indicate evidence of bilateral aspiration. 5. Additional patchy ground-glass opacification with a relatively peripheral distribution throughout the lungs bilaterally is also noted. 6. Incidental observations are detailed above.
--- NOTE | 2025-08-13 03:03 | PC.NURSE ---
patient with another of episode of hematemesis, Right upper and lower quadrant of abdomen very tender. Notified dr kelly. ct abd chest pelvis ordered
[2025-08-13] MEDS: iohexol 350 mg/mL 500 mL Btl (per mL) IV (03:29)
--- NOTE | 2025-08-13 03:50 | PC.NURSE ---
RN spoked with dr. anand regarding patient status, patient back from ct. color pale. pain in right side. RN requesting for type and screen. Type and screen ordered, 2 units prbc ordered on hold if needed.
[2025-08-13 04:20] LABS: Hematocrit 37.7 % (36-47); Hemoglobin 12.20 g/dL (11.27-16.99); Mean Corpuscular HGB Conc 32.4 g/dL (30-55); Mean Corpuscular Hemoglobin 28.8 pg (27-33); Mean Corpuscular Volume 88.9 fl (85-98); Nucleated Red Blood Cells % 0 %; Platelet Count 273 10^3/cmm (157-399); Red Blood Count 4.24 10^6/uL (3.85-5.65); White Blood Count 11.90 10^3/uL (3.29-11.43)
--- NOTE | 2025-08-13 04:31 | PC.NURSE ---
Dr. Anand called RN. Per she talked to DR. rosales and have decided to just give one unit of prbcs. give 40 of lasix and order a CT abd pelvis w/o contrast at 0700. RN asked if aspirin or plavix should be held, per Dr. anand she will call Dr. Rosales and call RN back.
[2025-08-13 04:50] LABS: Blood Urea Nitrogen 25 mg/dL (8-23); Calcium 8.5 mg/dL (8.5-10.5); Carbon Dioxide 13 mmol/L (22-29); Chloride 104 mmol/L (98-107); Creatinine Clr Calc Pharmacy 51.2761; Glucose 227 mg/dL (65-115); Osmolality Calculated 290 mOsm/kg (285-295); Sodium 134 mmol/L (136-145)
[2025-08-13 04:59] LABS: Anion Gap 22.1 (5-19); Potassium 5.1 mmol/L (3.5-5.1)
[2025-08-13] MEDS: meropenem 1,000 mg SDV 1000 MG IVP (05:27)
[2025-08-13] MEDS: doxycycline 100 MG in sodium chloride 0.9% (plus) 100 ML IV (05:27)
[2025-08-13 06:34] LABS: Hematocrit 36.3 % (36-47); Hemoglobin 12.20 g/dL (11.27-16.99)
--- NOTE | 2025-08-13 08:43 | P.PN_ITS ---
<Statement entered by Shawn Sandoval 08/15/25 11:52> Patient was cared for in conjunction with an advanced practice practitioner.? I reviewed the chart and all pertinent data including imaging, telemetry, and laboratory results.? I discussed the patient in detail with the advanced practice practitioner.? Please see?their note for progress note, testing results and agreed upon plan of care for the patient. Subjective 2 Subjective: She had a run of VT last night, had retroperitoneal bleed from right groin, from oozing at the Angio-Seal site. There is soft hematoma now, the abdomen and flank is tender to touch. Hemoglobin is 12.2 this morning. Hold blood products for now. Heart rate slightly tachycardic. Vitals/I&O/Wt Last Vital Signs Temp 97.6 F 08/13/25 07:00 Pulse 93 08/13/25 06:35 Resp 21 H 08/13/25 06:35 BP 152/97 08/13/25 06:35 Pulse Ox 100 08/13/25 06:35 O2 Del Method Nasal Cannula 08/13/25 06:00 O2 Flow Rate 4 08/13/25 05:00 08/12/25 08/13/25 08/13/25 22:59 06:59 14:59 Intake Total 500 / 690 190 / 690 Balance 500 / 690 190 / 690 Weight last 48 hrs Weight 188 lb 7.924 oz Weight 208 lb 1.862 oz Weight 160 lb Physical Exam 2 Const: COMMON NORMALS: no acute distress and patient oriented x3 GENERAL APPEARANCE: cooperative ORIENTATION/CONSCIOUSNESS: Yes awake, Yes oriented to person, Yes oriented to place and Yes oriented to time Chest: COMMONS NORMALS: normal inspection of the chest and normal palpation of entire chest wall CHEST: Yes Symmetrical chest wall rise Resp: COMMON NORMALS: normal respiratory effort, No retractions, No use of accessory muscles and clear to auscultation bilaterally AUSCULTATION: clear to auscultation bilaterally Cardio: COMMON NORMALS: regular rate, regular rhythm, S1 normal heart sound present, S2 normal heart sound present, No gallops present (Cardio), No clicks present (Cardio), No murmurs present (Cardio) and No rub (Cardio) RATE: r egular rate RHYTHM: regular rhythm HEART SOUNDS: S1 normal heart sound present and S2 normal heart sound present PERIPHERAL PULSES: radial pulses present positive right 2+ and femoral pulses present positive right 2+ Neuro: COMMON NORMALS: patient oriented x3 and moves all extremities S ENSORIUM/ORIENTATION: Yes oriented to person, Yes oriented to place and Yes oriented to time Skin: WOUNDS: Yes surgical site (no hematoma palpable) Details: no odor Data 08/13/25 06:27 08/13/25 03:57 A&P Assessment and plan 1. STEMI (ST elevation myocardial infarction): 2. Hypertension: 3. Cardiopulmonary arrest: Plan: Will keep in ICU today, monitoring right groin and retroperitoneal bleed. She has hemoglobin ordered at 10AM. No chest pain. Echocardiogram just completed. No signs of heart failure currently. Blood pressure stable, no hypotension. PDMP PDMP Reviewed: Not Reviewed Attestations 2 Medical Necessity Statement*: Post STEMI Coding Level of Care Code Acute Code for [facility] Diagnoses STEMI (ST elevation myocardial infarction) I21.3 Hypertension I10 Cardiopulmonary arrest I46.9
[2025-08-13] MEDS: pantoprazole 40 mg SDV IVP ×2 (08:57→21:11)
--- NOTE | 2025-08-13 09:07 | PC.NURSE ---
PABLO Castaneda approved holding ordered blood and associated lasix ivp for hgb of 12.2
[2025-08-13 10:25] LABS: Hematocrit 37.1 % (36-47); Hemoglobin 12.00 g/dL (11.27-16.99)
--- NOTE | 2025-08-13 12:23 | P.PN_ITS ---
Subjective 2 Subjective: Hospital course, labs appreciated. Patient lying comfortably in bed today morning. Did have episode of nonsustained V. tach overnight on telemetry. Hemodynamically stable for now. Vitals/I&O/Wt Last Vital Signs Temp 97.6 F 08/13/25 07:00 Pulse 98 08/13/25 11:00 Resp 18 08/13/25 11:00 BP 166/85 08/13/25 11:00 Pulse Ox 97 08/13/25 10:00 O2 Del Method Nasal Cannula 08/13/25 09:06 O2 Flow Rate 4 08/13/25 09:06 08/12/25 08/13/25 08/13/25 22:59 06:59 14:59 Intake Total 500 / 500 190 / 690 Balance 500 / 500 190 / 690 Weight last 48 hrs Weight 85.5 kg Weight 94.4 kg Weight 72.575 kg Physical Exam 2 Narrative: Generally patient is in no apparent distress relies supine in bed with the head of the bed up at 45 degrees. Patient looks slightly pale but at the same time with warm color and warm to touch on the face and chest Vital sign stabilizing systolic blood pressure in the 80s went up to 106 systolic with a MAP of 93 post IV bolus of 500 cc/h x 1 of normal saline HEENT normocephalic/atraumatic neck neck is supple cardiovascular heart rate is regular lungs are pretty much clear abdomen soft nontender nondistended unremarkable extremities are intact and right groin region intact with Angio- Seal patient has good pulses in the affected extremities. Data 08/13/25 10:17 08/13/25 03:57 A&P Assessment and plan 1. Blood loss anemia: Anemia most likely in setting of retroperitoneal hematoma. Possible concern for hematemesis though not sure. Hemoglobin so far stable. Monitor hemoglobin and evening. 2. Hematemesis: Monitor hemoglobin as above. Continue with Protonix twice daily along with Carafate ACHS. 3. STEMI (ST elevation myocardial infarction): Post emergent PCI. Appreciate troponin cycled. Appreciate echocardiogram. Continue with DAPT, statin. Can start on metoprolol 25 mg twice daily. Check A1c, lipid panel. Rest treatment as per cardiology team. 4. Acute kidney injury: Most likely in setting of hypotension during cardiopulmonary arrest. Too early for ROX. Creatinine now 1.3. Associated with metabolic acidosis. Check urine lites, urinalysis. Continue with IV fluids. Repeat BMP in afternoon. Medical reconciliation done for nephrotoxic drugs. 5. Hypertension: Goal blood pressure less than 140/90 mmHg. Metoprolol as above. Depending on the EF most likely can start on Entresto if the blood pressures remain elevated and if renal functions remained stable. 6. Cardiopulmonary arrest: For a brief moment during PCI. Patient is slightly confused. If continues to have episodes of confusion or dysarthria will benefit from CT head. 7. Transient hypotension: Blood pressure so far stable. Target mean artery pressure 65. 8. Retroperitoneal hematoma: 9. Metabolic acidosis: Plan: Check A1c, lipid panel, iron panel, vitamin B12 and folate levels. Aspiration pneumonia: Seen on CT chest. Oxygen supplementation keeping saturation over 90%. Sputum culture. Switch to IV ceftriaxone and oral azithromycin for now for community-acquired pneumonia. Can plan to finish a 5-day course. Full code Cardiac diet Protonix for PUD prophylaxis SCD for DVT prophylaxis. If hemoglobin remains stable can plan to start on subcu heparin. PDMP PDMP Reviewed: Not Reviewed Attestations 2 Medical Necessity Statement*: As per primary team Diagnoses Blood loss anemia D50.0 Hematemesis K92.0 STEMI (ST elevation myocardial infarction) I21.3 Acute kidney injury N17.9 Hypertension I10 Cardiopulmonary arrest I46.9 Transient hypotension I95.9 Retroperitoneal hematoma K68.3 Metabolic acidosis E87.20
[2025-08-13 12:56] LABS: Estmated Average Glucose 97; Hemoglobin A1C 5.0 % (4.0-6.0)
[2025-08-13 13:14] LABS: Iron 83 ug/dL (37-145); Thyroid Stimulating Hormone 2.09 uIU/mL (0.27-4.20); Vitamin B12 399 pg/mL (232-1245)
[2025-08-13] MEDS: cefTRIAXone 1,000 mg SDV 1000 MG IVP (13:23)
[2025-08-13 14:16] LABS: Total Iron Binding Capacity 250 mcg/dl; Unsaturated Iron Binding 167 ug/dL (112-347)
--- NOTE | 2025-08-13 15:59 | CTR_ITS ---
PROCEDURE INFORMATION: Exam: CT Head Without Contrast Exam date and time: 08/13/2025 4:40 PM Age: 60 years old Clinical indication: Other: Confusion TECHNIQUE: Imaging protocol: Computed tomography of the head without contrast. Radiation optimization: All CT scans at this facility use at least one of these dose optimization techniques: automated exposure control; mA and/or kV adjustment per patient size (includes targeted exams where dose is matched to clinical indication); or iterative reconstruction. COMPARISON: No relevant prior studies available. RADIATION DOSE METRICS: Total DLP (mGy-cm): 699.88 FINDINGS: Brain: No hemorrhage. Unremarkable white matter. No mass effect. Moderate diffuse parenchymal volume loss. Extensive chronic microangiopathic white matter changes. Cerebral ventricles: No ventriculomegaly. Paranasal sinuses: Frothy secretions in the right maxillary sinus. Air-fluid level in the right sphenoid sinus. Mild mucosal thickening involving the right ethmoid air cells.. Mastoid air cells: Visualized mastoid air cells are well aerated. Bones: Unremarkable. No acute fracture. Soft tissues: Unremarkable. CT/CT head wo con* [id number] IMPRESSION: 1. No acute intracranial abnormality. 2. Moderate diffuse parenchymal volume loss. 3. Extensive chronic microangiopathic white matter changes.
--- NOTE | 2025-08-13 17:12 | PC.NURSE ---
Patient confusion increased, Leonel OIL EXPELLER OPERATOR at bedside about time change noted, OIL EXPELLER OPERATOR spoke to dr daley and Yolie orders for CT and cbc recieved
[2025-08-13 17:30] LABS: Hematocrit 31.2 % (36-47); Hemoglobin 10.40 g/dL (11.27-16.99); Mean Corpuscular HGB Conc 33.3 g/dL (30-55); Mean Corpuscular Hemoglobin 29.0 pg (27-33); Mean Corpuscular Volume 86.9 fl (85-98); Nucleated Red Blood Cells % 0 %; Platelet Count 242 10^3/cmm (157-399); Red Blood Count 3.59 10^6/uL (3.85-5.65); White Blood Count 15.90 10^3/uL (3.29-11.43)
--- NOTE | 2025-08-13 18:28 | PC.NURSE ---
patient becoming restless, med orderd from Dr. Pedro tavarez
[2025-08-13 18:54] LABS: Anion Gap 16.3 (5-19); Blood Urea Nitrogen 24 mg/dL (8-23); Calcium 9.0 mg/dL (8.5-10.5); Carbon Dioxide 19 mmol/L (22-29); Chloride 109 mmol/L (98-107); Creatinine Clr Calc Pharmacy 52.7472; Glucose 124 mg/dL (65-115); Osmolality Calculated 295 mOsm/kg (285-295); Potassium 4.3 mmol/L (3.5-5.1); Sodium 140 mmol/L (136-145)
--- NOTE | 2025-08-13 21:11 | USCV_ITS ---
Samuel Buck Age: 60 Gender: F : 1965 Exam Date: 08/13/2025 08:51 Ordering Phys: Parker Rosales M.D ([email or web address]) Technologist: Exam [place] [facility] [place]: nstimi BP: 141 / 96 HR: 92 Rhythm: Sinus Technical Quality: Adequate MEASUREMENTS (Male / Female) Normal Values 2D ECHO LVOT Diameter 1.8 cm LV Ejection Fraction MOD 4C 32.6 % LV Ejection Fraction MOD 2C 55.6 % LV Ejection Fraction 2C AL 54.8 % LA Diameter 2.6 cm RA Systolic Volume 4C AL 51.9 ml RA Systolic Volume 4C MOD 50.2 ml LA Sys Volume AL 63.3 cm cubed LA Sys Volume Index AL 31.6 cm cubed/m squared Aorta at Sinotubular Diameter 2.6 cm DOPPLER AV Peak Velocity 91.0 cm/s LVOT Peak Velocity 71.0 cm/s AV Area Cont Eq vti 2.7 cm squared AV Area Cont Eq pk 2.0 cm squared MV Peak Velocity 120.0 cm/s MV Area PHT 6.1 cm squared Mitral E to A Ratio 3.0 TR Peak Velocity 144.0 cm/s TR Peak Gradient 8.3 mmHg TV Peak E Velocity 77.0 cm/s PV Peak Velocity 117.0 cm/s FINDINGS Left Ventricle Left ventricular systolic function is moderately reduced with ejection fraction is estimated at 35-40%. Severe hypokinesis of mid to apical anteroseptal, inferoseptal and apical perez. Grade 1 diastolic dysfunction. Right Ventricle Normal right ventricular size and systolic function. Right Atrium Normal right atrial size. Left Atrium Normal left atrial size. IA Septum Grossly normal Mitral Valve Structurally normal mitral valve. Trace mitral regurgitation Aortic Valve Grossly normal. Mild aortic regurgitation. No significant stenosis. Tricuspid Valve Insufficient TR jet to calculate RVSP Pulmonic Valve Not well visualized Pericardium Normal Aorta Normal in size IVC Not well visualized CONCLUSIONS LV systolic function is moderately reduced with EF of 35-40%. Above-mentioned regional wall motion abnormalities. Grade 1 diastolic dysfunction. Trace mitral regurgitation. Mild aortic regurgitation. No comparison studies are available. Parker Rosales MD (Electronically Signed) Final Date: 13 August 2025 11:06 S
--- NOTE | 2025-08-13 21:23 | XRR_ITS ---
PROCEDURE INFORMATION: Exam: XR Chest Exam date and time: 08/13/2025 9:30 PM Age: 60 years old Clinical indication: Other: Congestion TECHNIQUE: Imaging protocol: Radiologic exam of the chest. Views: 1 view. COMPARISON: CR (CHEST, ) 08/12/2025 6:33 PM FINDINGS: Lungs: There are low lung volumes. There are findings of multifocal opacities throughout the right lung left upper lobe abnormalities represent new findings compared to prior exam may represent developing pulmonary edema. Pleural spaces: There are no significant pleural effusions. There are no pneumothoraces Heart/Mediastinum: Unremarkable. No cardiomegaly. Bones/joints: Hard bony structures stable XR/XR chest 1V portable [id number] IMPRESSION: Findings are new interstitial opacities throughout the right lung left upper lobe given the short interval development compared to the prior exam pulmonary edema should be considered and excluded. Correlate and follow-up as indicated.
--- NOTE | 2025-08-13 21:23 | PC.NURSE ---
Pt lungs coarse with exp wheezes, occasional nonproductive cough, heart rate consistently above 100, mildly hypertensive, and fluids have continued at 100 ml/hr. Discussed same with Dr. Jiménez, and discussed hgb trend, and imaging from today. Ordered to do chest xray, infuse one unit PRBC, and give 60 mg lasix.
[2025-08-13] MEDS: FUROsemide 10 mg/mL SDV 10mL 60 MG IVP (23:27)
[2025-08-14] VITALS (45 sets, daily range): BP systolic 98–154; BP diastolic 66–104; PULSE 83–113; RESP 18–38; TEMP 36.6–37.1; O2SAT 91–99
[2025-08-14] MEDS: LORazepam 1 MG/0.5 ML injection IVP (03:03)
--- NOTE | 2025-08-14 03:12 | PC.NURSE ---
Spoke with Dr. Jiménez received telephone order for 1 mg ativan due to restless agitation
[2025-08-14 06:42] LABS: Hematocrit 35.9 % (36-47); Hemoglobin 11.80 g/dL (11.27-16.99); Mean Corpuscular HGB Conc 32.9 g/dL (30-55); Mean Corpuscular Hemoglobin 29.4 pg (27-33); Mean Corpuscular Volume 89.3 fl (85-98); Nucleated Red Blood Cells % 0 %; Platelet Count 193 10^3/cmm (157-399); Red Blood Count 4.02 10^6/uL (3.85-5.65); White Blood Count 11.73 10^3/uL (3.29-11.43)
[2025-08-14 07:03] LABS: Alanine Aminotransferase 59 U/L (0-33); Albumin Level 3.7 g/dL (3.5-5.2); Alkaline Phosphatase 99 U/L (35-105); Anion Gap 19.5 (5-19); Aspartate Amino Transferase 277 U/L (0-32); Blood Urea Nitrogen 23 mg/dL (8-23); Calcium 9.3 mg/dL (8.5-10.5); Carbon Dioxide 21 mmol/L (22-29); Chloride 104 mmol/L (98-107); Globulin 2.6 g/dL (1.3-4.6); Glucose 110 mg/dL (65-115); Osmolality Calculated 296 mOsm/kg (285-295); Potassium 3.5 mmol/L (3.5-5.1); Sodium 141 mmol/L (136-145); Total Protein 6.3 g/dL (6.6-8.7)
[2025-08-14 07:06] LABS: Cholesterol 160 mg/dL (0-200); Creatinine Clr Calc Pharmacy 44.2675; HDL Cholesterol 34 mg/dL (60-100); Magnesium 1.8 mg/dL (1.7-2.3); Triglycerides 222 mg/dL (0-150); VLDL Cholestrol Calculation 44 mg/dL (0-30)
--- NOTE | 2025-08-14 08:51 | P.PN_ITS ---
<Statement entered by Parker Rosales M.D - 08/15/25 11:55> Patient was cared for in conjunction with an advanced practice practitioner.? I reviewed the chart and all pertinent data including imaging, telemetry, and laboratory results.? I discussed the patient in detail with the advanced practice practitioner.? Please see?their note for progress note, testing results and agreed upon plan of care for the patient. Patient has confusion. Had discussion with medicine team. Likely secondary to delirium. CT head did not show acute abnormalities. Has chronic changes. Continue aspirin, Plavix and statin. Continue uptitrating beta-diaz. If blood pressure elevated will add amlodipine Subjective 2 Subjective: She is intermittently confused. Per discussion with family she seems to have some possible dementia at baseline, needing to be reminded to swallow her food. She denies chest pain and shortness of breath. The nurse has had some difficulty getting her to take aspirin and Plavix today, but finally accomplished. No more arrhythmias overnight. Right femoral cath site stable, no enlargement in hematoma. Still very tender. She was given blood overnight by hospitalist service. Vitals/I&O/Wt Last Vital Signs Temp 98.8 F 08/14/25 05:32 Pulse 92 08/14/25 08:30 Resp 18 08/14/25 08:30 BP 129/87 08/14/25 08:30 Pulse Ox 96 08/14/25 08:00 O2 Del Method Room Air 08/14/25 06:00 O2 Flow Rate 4 08/13/25 09:06 08/13/25 08/14/25 08/14/25 22:59 06:59 14:59 Intake Total 298.333 / 1997.333 400 / 1997.333 Output Total 700 / 3350 2650 / 3350 Balance -401.667 / -1351.667 -2250 / -1351.667 Weight last 48 hrs Weight 180 lb 12.465 oz Weight 188 lb 7.924 oz Weight 208 lb 1.862 oz Weight 160 lb Physical Exam 2 Const: COMMON NORMALS: no acute distress GENERAL APPEARANCE: cooperative ORIENTATION/CONSCIOUSNESS: Yes awake, Yes oriented to person and Yes oriented to place Chest: COMMONS NORMALS: normal inspection of the chest and normal palpation of entire chest wall CHEST: Yes Symmetrical chest wall rise Resp: COMMON NORMALS: normal respiratory effort, No retractions, No use of accessory muscles and clear to auscultation bilaterally AUSCULTATION: clear to auscultation bilaterally Cardio: COMMON NORMALS: regular rate, regular rhythm, S1 normal heart sound present, S2 normal heart sound present, No gallops present (Cardio), No clicks present (Cardio), No murmurs present (Cardio) and No rub (Cardio) RATE: r egular rate RHYTHM: regular rhythm HEART SOUNDS: S1 normal heart sound present and S2 normal heart sound present PERIPHERAL PULSES: radial pulses present positive right 2+ and femoral pulses present positive right 2+ Neuro: COMMON NORMALS: moves all extremities SENSORIUM/ORIENTATION: Yes oriented to person and Yes oriented to place Skin: WOUNDS: Yes surgical site (small groin hematoma palpable) Details: no odor Urinary Catheter Management: Massey: Cath Placed During This Visit: no Reason for Continuing Indwelling Catheter: Accurate Measurement of Urinary Output in Critically Ill Patients Data 08/14/25 06:32 08/14/25 06:32 A&P Assessment and plan 1. STEMI (ST elevation myocardial infarction): 2. Hypertension: 3. Cardiopulmonary arrest: 4. Acute kidney injury: 5. Retroperitoneal hematoma: Plan: Continue aspirin, Plavix, atorvastatin, metoprolol. Appears euvolemic, LVEF 35-40%. Hematoma stable, still soft. PDMP PDMP Reviewed: Not Reviewed Attestations 2 Medical Necessity Statement*: plan to keep today possible dc home tomorrow Coding Level of Care Code Acute Code for g Fwd Diagnoses STEMI (ST elevation myocardial infarction) I21.3 Hypertension I10 Cardiopulmonary arrest I46.9 Acute kidney injury N17.9 Retroperitoneal hematoma K68.3
[2025-08-14 09:04] LABS: Lactate (Lactic Acid level) 1.4 mmol/L (0.5-2.2)
[2025-08-14 09:11] LABS: Procalcitonin 0.23 ng/mL (0-0.5)
[2025-08-14] MEDS: pantoprazole 40 mg SDV IVP ×2 (09:18→21:53)
--- NOTE | 2025-08-14 09:44 | XR_ITS ---
WS: [id number] Portable AP upright chest, 08/14/2025 Clinical Data: congestion Comparison: Portable chest, 08/13/2025 Findings: The bilateral patchy pulmonary opacities remain the same. The patient has a poor inspiratory effort. No nodules, masses or effusions are seen. The heart is normal. The pulmonary vascularity is not increased. No pneumonia or pneumothorax is seen. The aortic arch shows tortuosity. There are monitor leads on the chest wall. XR/XR chest 1V portable [id number] Impression: 1. No change in patchy pulmonary opacities which may represent interstitial yuli ma. 2. Atherosclerosis.
[2025-08-14] MEDS: FUROsemide 10 mg/mL SDV 2mL 20 MG IVP (09:58)
[2025-08-14 10:32] LABS: Glucose Urine UA Negative (Normal); Nitrate Urine Negative (Negative); Specific Gravity, Urine 1.017 (1.005-1.030)
[2025-08-14 10:41] LABS: ABG PCO2 31.8 mmHg (35-45); ABG PH Result 7.51 (7.35-7.45); Alveolar-Arterial Oxygen Gradi 5.9 mmHg (5-10); Arterial Blood Gas Hematocrit 37.9 % (37-47); Blood Gas Allen Test Pos; Blood Gas Sample Type Arterial; Carboxyhemoglobin 1.6 %THgb (0.4-20.1); Glucose Level-ABG 127.0 mg/dL (70-115); HCO3 ABG 25.4 mmol/L (22-26); Ionized Calcium Level - ABG 1.2 mmol/L (1.1-1.4); Methemoglobin 0.9 % (0.4-1.5); Oxygen Saturation ABG 95.6; PO2 ABG 65.5 mmHg (80.0-100.0); Potassium Level - ABG 3.3 mmol/L (3.5-5.0); Sodium Level - ABG 141.0 mmol/L (131-143)
[2025-08-14 10:47] LABS: Blood Gas Operator Identificat GD; Blood Gas Sample Site Radial, left; PO2 FiO2 Ratio Arterial Blood 311
[2025-08-14 11:00] LABS: Ammonia 26 umol/L (11-51)
[2025-08-14 11:19] LABS: Add Urine Microscopic? YES
[2025-08-14 11:20] LABS: Oval Fat Bodies Urine 1+ /hpf
--- NOTE | 2025-08-14 12:05 | P.PN_ITS ---
Subjective 2 Subjective: She has been lethargic. states that she is alert and fully oriented at baseline. However she has been more forgetful at home. She was given 1 units of packed red cells and IV fluids overnight. She became volume overloaded and was given a dose of IV Lasix. She has evidence of volume overload again this morning. Cardiology evaluated her and recommended another dose of IV Lasix. Vitals/I&O/Wt Last Vital Signs Temp 98.8 F 08/14/25 05:32 Pulse 102 H 08/14/25 10:00 Resp 26 H 08/14/25 10:00 BP 133/93 08/14/25 10:00 Pulse Ox 96 08/14/25 08:00 O2 Del Method Room Air 08/14/25 06:00 O2 Flow Rate 4 08/13/25 09:06 08/13/25 08/14/25 08/14/25 22:59 06:59 14:59 Intake Total 298.333 / 1598.333 400 / 1998.333 Output Total 700 / 700 2650 / 3350 Balance -401.667 / 898.333 -2250 / -1351.667 Weight last 48 hrs Weight 82 kg Weight 85.5 kg Weight 94.4 kg Weight 72.575 kg Physical Exam 2 Const: EXAM LIMITATIONS: altered mental status GENERAL APPEARANCE: l ethargic and ill appearing ORIENTATION/CONSCIOUSNESS: Yes lethargic HENMT: COMMON NORMALS: normocephalic, atraumatic and oropharynx normal HEAD & SCALP: normocephalic and atraumatic Eye: COMMON NORMALS: Equal, round and reactive pupils present PUPIL: Yes Equal, round and reactive pupils present Neck/C-Spine: COMMON NORMALS: supple Resp: EFFORT & INSPECTION: Yes respiratory distress AUSCULTATION: rhonchi Cardio: COMMON NORMALS: regular rhythm and No murmurs present (Cardio) J UGULAR VENOUS DISTENTION: JVD RATE: tachycardic RHYTHM: regular rhythm HEART SOUNDS: no murmurs GI: COMMON NORMALS: Normal to inspection, nondistended, normoactive bowel sounds present, Soft to palpation and non-tender PALPATION: Yes Soft to palpation : COMMON NORMALS: Yes no CVA tenderness BLADDER/KIDNEY EXAM: Yes no CVA tenderness Back/Pelvis: COMMON NORMALS: no CVA tenderness Extremity: COMMON NORMALS: no joint enlargement; negative for no pedal edema Neuro: COMMON NORMALS: moves all extremities SENSORIUM/ORIENTATION: Yes lethargic Skin: COMMON NORMALS: no rashes or lesions noted GENERAL SKIN EXAM: no rashes or lesions noted Urinary Catheter Management: Massey: Cath Placed During This Visit: no Reason for Continuing Indwelling Catheter: Accurate Measurement of Urinary Output in Critically Ill Patients Data 08/14/25 06:32 08/14/25 06:32 A&P Assessment and plan 1. STEMI (ST elevation myocardial infarction): Post emergent PCI. Appreciate troponin cycled. Appreciate echocardiogram and lipid panel Continue with DAPT, statin. Started on metoprolol 25 mg twice daily this admission A1c 5.0 Defer rest of management to cardiology 2. Cardiopulmonary arrest: For a brief moment during PCI. 3. Transient hypotension: Blood pressure so far stable. Target mean artery pressure 65. 4. Blood loss anemia: Secondary to retroperitoneal hematoma. There was concern for hematemesis She received 1 units of packed red cells last cleaning attendant hemoglobin 5. Hematemesis: Monitor hemoglobin as above. Continue with Protonix twice daily along with Carafate ACHS. 6. Retroperitoneal hematoma: Retroperitoneal hemorrhage noted on the right side with hemorrhagic changes extending into the groin 7. Acute HFrEF (heart failure with reduced ejection fraction): Likely ischemic cardiomyopathy in the setting of acute STEMI. LVEF 35 to 40% with grade 1 diastolic dysfunction ? IV Lasix per cardiology ? She is on metoprolol ? Consider Entresto once creatinine is stable ? Strict I's and O's and daily weights 8. Metabolic encephalopathy: She is alert and fully oriented at baseline. She has been more forgetful at home per . She is lethargic and disoriented today. CT head yesterday did not show any acute intracranial abnormality. She has moderate diffuse parenchymal volume loss and extensive chronic microangiopathic white matter changes. She has bilateral pneumonia and she may have a UTI. Urine cultures pending Serum ammonia is normal. No hypercarbia on ABG. 9. Bilateral pneumonia: Bilateral pulmonary parenchymal consolidation in lower lobes and patchy ground glass opacification noted on CT chest on admission. May be due to aspiration. She is on treating with ceftriaxone and azithromycin. 10. UTI (urinary tract infection): 11. Acute kidney injury: Most likely in setting of hypotension during cardiopulmonary arrest. ? Creatinine has trended up to 1.4 ? She is having excellent urine output with IV Lasix ? Closely monitor serum creatinine and avoid nephrotoxic meds ? Will consult nephrology if creatinine continues to worsen 12. Elevated LFTs: LFTs elevated today. Will order liver ultrasound. 13. Hypertension: Goal blood pressure less than 140/90 mmHg. Metoprolol as above. Depending on the EF most likely can start on Entresto if the blood pressures remain elevated and if renal functions remained stable. 14. Metabolic acidosis: pH today 7.51 Plan: Check A1c, lipid panel, iron panel, vitamin B12 and folate levels. Aspiration pneumonia: Seen on CT chest. Oxygen supplementation keeping saturation over 90%. Sputum culture. Switch to IV ceftriaxone and oral azithromycin for now for community-acquired pneumonia. Can plan to finish a 5-day course. Full code Cardiac diet Protonix for PUD prophylaxis SCD for DVT prophylaxis. If hemoglobin remains stable can plan to start on subcu heparin. PDMP PDMP Reviewed: Not Reviewed Attestations 2 Medical Necessity Statement*: If she needs continued ICU hospitalization for IV diuretics, IV antibiotics, monitoring of renal function and liver enzymes. Also needs monitoring of her mental status. Critical Care Time: Total critical care time spent equals 40 minutes. Coding Level of Care Code Critical Care >/= 30 minutes Diagnoses STEMI (ST elevation myocardial infarction) I21.3 Cardiopulmonary arrest I46.9 Transient hypotension I95.9 Blood loss anemia D50.0 Hematemesis K92.0 Retroperitoneal hematoma K68.3 Acute HFrEF (heart failure with reduced ejection fraction) I50.21 Metabolic encephalopathy G93.41 Bilateral pneumonia J18.9 UTI (urinary tract infection) N39.0 Acute kidney injury N17.9 Elevated LFTs R79.89 Hypertension I10 Metabolic acidosis E87.20
[2025-08-14] MEDS: cefTRIAXone 1,000 mg SDV 1000 MG IVP (12:30)
--- NOTE | 2025-08-14 12:37 | PC.NURSE ---
patient remains confused intermittently follows commands, not keeping pulse ox or bp cuff on. Dr whitlock and Yolie came to bedside in am orderes received for lasix per jan, cxr, UA and amonia
--- NOTE | 2025-08-14 16:56 | USR_ITS ---
PROCEDURE INFORMATION: Exam: US Abdomen, Limited; Right Upper Quadrant Exam date and time: 08/14/2025 5:30 PM Age: 60 years old Clinical indication: Abnormal findings; Abnormal lab test; Elevated liver enzymes; Additional info: Elevated lfts TECHNIQUE: Imaging protocol: Real time ultrasound of the abdomen with image documentation. Limited exam focused on the right upper quadrant. COMPARISON: CT angio chest w abd pel w con 08/13/2025 3:13 AM FINDINGS: Liver: Normal. No masses. Gallbladder: Normal. No gallstones. There is no gallbladder wall thickening. Biliary ducts: Normal. No stones. No dilation. Pancreas: Visualized pancreas is unremarkable. Right kidney: Normal. No mass. No hydronephrosis. Query mild increased echogenicity. Intestine: Technically limited due to patient pain, mobility issues, bowel gas, and body habitus. US/US liver [id number] IMPRESSION: No acute findings.
[2025-08-14] MEDS: potassium chloride premix 100 ML 50 MEQ IV (18:32)
[2025-08-14] MEDS: lidocaine 1% 5 ML in potassium chloride premix 100 ML 52.5 ML IV (23:33)
[2025-08-15] VITALS (15 sets, daily range): BP systolic 114–165; BP diastolic 73–118; PULSE 79–114; RESP 16–30; TEMP 36.6–36.8; O2SAT 93–97
[2025-08-15 04:40] LABS: Magnesium 1.8 mg/dL (1.7-2.3)
[2025-08-15 05:42] LABS: Hematocrit 33.6 % (36-47); Hemoglobin 11.60 g/dL (11.27-16.99); Mean Corpuscular HGB Conc 34.5 g/dL (30-55); Mean Corpuscular Hemoglobin 29.2 pg (27-33); Mean Corpuscular Volume 84.6 fl (85-98); Nucleated Red Blood Cells % 0 %; Platelet Count 214 10^3/cmm (157-399); Red Blood Count 3.97 10^6/uL (3.85-5.65); White Blood Count 10.78 10^3/uL (3.29-11.43)
[2025-08-15 08:03] LABS: Alanine Aminotransferase 46 U/L (0-33); Albumin Level 3.8 g/dL (3.5-5.2); Alkaline Phosphatase 117 U/L (35-105); Blood Urea Nitrogen 26 mg/dL (8-23); Calcium 9.1 mg/dL (8.5-10.5); Carbon Dioxide 23 mmol/L (22-29); Chloride 105 mmol/L (98-107); Creatinine Clr Calc Pharmacy 51.3306; Globulin 2.9 g/dL (1.3-4.6); Glucose 113 mg/dL (65-115); Osmolality Calculated 300 mOsm/kg (285-295); Sodium 142 mmol/L (136-145); Total Protein 6.7 g/dL (6.6-8.7)
[2025-08-15 08:08] LABS: Anion Gap 18.1 (5-19); Aspartate Amino Transferase 139 U/L (0-32); Potassium 4.1 mmol/L (3.5-5.1)
--- NOTE | 2025-08-15 08:08 | P.PN_ITS ---
<Statement entered by Shawn Sandoval 08/15/25 12:02> Patient was cared for in conjunction with an advanced practice practitioner.? I reviewed the chart and all pertinent data including imaging, telemetry, and laboratory results.? I discussed the patient in detail with the advanced practice practitioner.? Please see?their note for progress note, testing results and agreed upon plan of care for the patient. Subjective 2 Subjective: Mental status much better. She is sitting up in the chair eating breakfast this morning. Right groin bruised, but still soft, not enlarging, tenderness much improved over the lower abdomen, flank, groin. Creatinine improved to 1.2 on labs this morning. She is in sinus tachycardia rates 110 while sitting up. No chest pain. Vitals/I&O/Wt Last Vital Signs Temp 98.8 F 08/14/25 05:32 Pulse 96 08/15/25 06:00 Resp 23 H 08/15/25 06:00 BP 137/80 08/15/25 06:00 Pulse Ox 97 08/15/25 06:00 O2 Del Method Room Air 08/14/25 06:00 O2 Flow Rate 4 08/13/25 09:06 08/14/25 08/15/25 08/15/25 22:59 06:59 14:59 Intake Total 320 / 560 240 / 560 Output Total 1000 / 1450 450 / 1450 Balance -680 / -890 -210 / -890 Weight last 48 hrs Weight 178 lb 9.191 oz Weight 180 lb 12.465 oz Physical Exam 2 Const: COMMON NORMALS: no acute distress and patient oriented x3 GENERAL APPEARANCE: cooperative and comfortable ORIENTATION/CONSCIOUSNESS: Yes awake, Yes oriented to person, Yes oriented to place and Yes oriented to time Chest: COMMONS NORMALS: normal inspection of the chest and normal palpation of entire chest wall CHEST: Yes Symmetrical chest wall rise Resp: COMMON NORMALS: normal respiratory effort, No retractions, No use of accessory muscles and clear to auscultation bilaterally EFFORT & INSPECTION: Yes symmetric chest movement AUSCULTATION: clear to auscultation bilaterally and diminished lung sounds bilateral in the lower lung galeano Cardio: COMMON NORMALS: regular rhythm, S1 normal heart sound present, S2 normal heart sound present, No gallops present (Cardio), No clicks present (Cardio), No murmurs present (Cardio) and No rub (Cardio) RATE: tachycardic RHYTHM: regular rhythm HEART SOUNDS: S1 normal heart sound present and S2 normal heart sound present PERIPHERAL PULSES: radial pulses present Extremity: COMMON NORMALS: no pedal edema Neuro: COMMON NORMALS: patient oriented x3 and moves all extremities S ENSORIUM/ORIENTATION: Yes oriented to person, Yes oriented to place and Yes oriented to time Urinary Catheter Management: Massey: Cath Placed During This Visit: no Reason for Continuing Indwelling Catheter: Accurate Measurement of Urinary Output in Critically Ill Patients Data 08/15/25 05:35 08/15/25 04:00 Micro: Microbiology 08/14/25 17:18 Blood Culture - Preliminary Blood SPECIMEN COLLECTED 08/14/25 17:20 Blood Culture - Preliminary Blood SPECIMEN COLLECTED A&P Assessment and plan 1. STEMI (ST elevation myocardial infarction): 2. Hypertension: 3. Cardiopulmonary arrest: 4. Acute HFrEF (heart failure with reduced ejection fraction): 5. Retroperitoneal hematoma: 6. Acute kidney injury: 7. Bilateral pneumonia: Plan: Antibiotic coverage provided by the hospitalist service for CAP and UTI. Urine is tea colored from hematuria. Good output. Continue aspirin, Plavix, atorvastatin. Will give another dose of metoprolol tartrate 25 mg this morning for tachycardia, change to carvedilol 12.5 mg BID starting with tonight's dose. Holding off starting Entresto as creatinine is still elevated. May need to consider as outpatient. Will keep in the hospital today, considering discharge home tomorrow if continued improvement. PDMP PDMP Reviewed: Not Reviewed Attestations 2 Medical Necessity Statement*: systolic chf, stemi Coding Level of Care Code Acute Code for [facility] Diagnoses STEMI (ST elevation myocardial infarction) I21.3 Hypertension I10 Cardiopulmonary arrest I46.9 Acute HFrEF (heart failure with reduced ejection fraction) I50.21 Retroperitoneal hematoma K68.3 Acute kidney injury N17.9 Bilateral pneumonia J18.9
[2025-08-15] MEDS: pantoprazole 40 mg SDV IVP ×2 (08:13→20:14)
--- NOTE | 2025-08-15 09:09 | MRR_ITS ---
PROCEDURE INFORMATION: Exam: MR Head Without Contrast Exam date and time: 08/15/2025 3:56 PM Age: 60 years old Clinical indication: Altered mental status/memory loss; Confusion or disorientation; Confusion, poss. Stroke; Additional info: Rule out stroke TECHNIQUE: Imaging protocol: Magnetic resonance imaging of the head without contrast. COMPARISON: CT head wo con* [id number] 08/13/2025 4:40 PM FINDINGS: Brain: There is extensive chronic ischemic change noted throughout the periventricular white matter bilaterally as well as the basal ganglia bilaterally. The changes are also noted in the liana and both cerebellar hemispheres. There are a few small punctate foci of diffusion restriction involving the periventricular white matter of both occipital lobes. In addition, a 5 mm focus of ischemia involving the left frontal cortex superiorly. No evidence of hemorrhage. There are numerous tiny foci of hemosiderin deposition scattered throughout both cerebral hemispheres as well as within the cerebellar hemispheres and midbrain. Cerebral ventricles: Normal. No ventriculomegaly. Bones: Unremarkable. Paranasal sinuses: Normal as visualized. No acute sinusitis. Mastoid air cells: Normal as visualized. No mastoid effusion. Orbital cavities: Unremarkable. Soft tissues: Unremarkable. MR/MR head wo con* [id number] IMPRESSION: 1. Chronic changes as seen with chronic severe hypertension 2. Several tiny foci of diffusion restriction as detailed above. These could represent small foci of acute ischemia
--- NOTE | 2025-08-15 10:14 | P.PN_ITS ---
Subjective 2 Subjective: States that she is doing better this morning. She is now alert but is only oriented to self. She is hemodynamically stable. Hemoglobin has also been stable. She had good response to IV diuresis yesterday. She is saturating well on room air. Medications: Reviewed: Yes Vitals/I&O/Wt Last Vital Signs Temp 98.3 F 08/15/25 08:00 Pulse 85 08/15/25 10:00 Resp 21 H 08/15/25 10:00 BP 165/82 08/15/25 10:00 Pulse Ox 96 08/15/25 10:00 O2 Del Method Room Air 08/15/25 10:00 O2 Flow Rate 4 08/13/25 09:06 08/14/25 08/15/25 08/15/25 22:59 06:59 14:59 Intake Total 320 / 320 240 / 560 200 / 200 Output Total 1000 / 1000 450 / 1450 Balance -680 / -680 -210 / -890 200 / 200 Weight last 48 hrs Weight 81 kg Weight 82 kg Physical Exam 2 Const: COMMON NORMALS: alert GENERAL APPEARANCE: cooperative O RIENTATION/CONSCIOUSNESS: Yes oriented to person HENMT: COMMON NORMALS: normocephalic, atraumatic and oropharynx normal HEAD & SCALP: normocephalic and atraumatic Eye: COMMON NORMALS: Equal, round and reactive pupils present PUPIL: Yes Equal, round and reactive pupils present Neck/C-Spine: COMMON NORMALS: supple Resp: COMMON NORMALS: normal respiratory effort and clear to auscultation bilaterally AUSCULTATION: clear to auscultation bilaterally Cardio: COMMON NORMALS: regular rhythm and No murmurs present (Cardio) J UGULAR VENOUS DISTENTION: no JVD and JVD RHYTHM: regular rhythm HEART SOUNDS: no murmurs GI: COMMON NORMALS: Normal to inspection, nondistended, normoactive bowel sounds present, Soft to palpation and non-tender PALPATION: Yes Soft to palpation : COMMON NORMALS: Yes no CVA tenderness BLADDER/KIDNEY EXAM: Yes no CVA tenderness Back/Pelvis: COMMON NORMALS: no CVA tenderness Extremity: COMMON NORMALS: no joint enlargement; negative for no pedal edema Neuro: COMMON NORMALS: moves all extremities, no focal motor deficits and no sensory deficits noted SENSORIUM/ORIENTATION: Yes alert and Yes oriented to person Skin: COMMON NORMALS: no rashes or lesions noted GENERAL SKIN EXAM: no rashes or lesions noted Urinary Catheter Management: Massey: Cath Placed During This Visit: no Reason for Continuing Indwelling Catheter: Accurate Measurement of Urinary Output in Critically Ill Patients Data 08/15/25 05:35 08/15/25 04:00 Micro: Microbiology 08/14/25 17:18 Blood Culture - Preliminary Blood SPECIMEN COLLECTED 08/14/25 17:20 Blood Culture - Preliminary Blood SPECIMEN COLLECTED A&P Assessment and plan 1. STEMI (ST elevation myocardial infarction): Post emergent PCI. Appreciate troponin cycled. Appreciate echocardiogram and lipid panel Continue with DAPT, statin. Started on metoprolol 25 mg twice daily this admission A1c 5.0 Defer rest of management to cardiology 2. Cardiopulmonary arrest: For a brief moment during PCI. 3. Transient hypotension: Blood pressure so far stable. Target mean artery pressure 65. 4. Blood loss anemia: Secondary to retroperitoneal hematoma. There was also concern for hematemesis She received 1 units of packed red cells on 08/13/2025 Hemoglobin has been stable 5. Hematemesis: Continue with Protonix twice daily along with Carafate ACHS. 6. Retroperitoneal hematoma: Retroperitoneal hemorrhage noted on the right side with hemorrhagic changes extending into the groin 7. Acute HFrEF (heart failure with reduced ejection fraction): Likely ischemic cardiomyopathy in the setting of acute STEMI. LVEF 35 to 40% with grade 1 diastolic dysfunction ? She received 2 doses of IV Lasix ?She had good response to diuresis ?Continue metoprolol ? Consider Entresto once creatinine is stable ? Strict I's and O's and daily weights 8. Metabolic encephalopathy: She is alert and fully oriented at baseline. She has been more forgetful at home per . Her lethargy has resolved but she is only oriented to person. She presented for UTI symptoms but will get MRI to rule out CVA 9. Bilateral pneumonia: Bilateral pulmonary parenchymal consolidation in lower lobes and patchy ground glass opacification noted on CT chest on admission. Likely aspiration pneumonia Continue ceftriaxone and azithromycin. 10. UTI (urinary tract infection): Urine culture pending 11. Acute kidney injury: Most likely in setting of hypotension during cardiopulmonary arrest. ? Creatinine peaked at 1.4, improved to 1.2 today ? Closely monitor serum creatinine and avoid nephrotoxic meds ? Will consult nephrology if creatinine continues to worsen 12. Elevated LFTs: LFTs elevated but improving Liver and gallbladder normal on liver ultrasound 13. Hypertension: Goal blood pressure less than 140/90 mmHg. Amlodipine and metoprolol. 14. Metabolic acidosis: pH today 7.51 15. Hyperlipidemia: Triglycerides elevated on lipid panel ? Cardiology holding off on starting statin for now Plan: Full code Cardiac diet Protonix for PUD prophylaxis SCDs for DVT prophylaxis. PDMP PDMP Reviewed: Not Reviewed Attestations 2 Medical Necessity Statement*: Patient requires continued hospitalization for telemetry monitoring, IV antibiotics, monitoring kidney function. MRI head also ordered Coding Level of Care Code Acute Code for [facility] Diagnoses STEMI (ST elevation myocardial infarction) I21.3 Cardiopulmonary arrest I46.9 Transient hypotension I95.9 Blood loss anemia D50.0 Hematemesis K92.0 Retroperitoneal hematoma K68.3 Acute HFrEF (heart failure with reduced ejection fraction) I50.21 Metabolic encephalopathy G93.41 Bilateral pneumonia J18.9 UTI (urinary tract infection) N39.0 Acute kidney injury N17.9 Elevated LFTs R79.89 Hypertension I10 Metabolic acidosis E87.20 Hyperlipidemia E78.5
[2025-08-15] MEDS: cefTRIAXone 1,000 mg SDV 1000 MG IVP (12:47)
[2025-08-16] VITALS (18 sets, daily range): BP systolic 96–144; BP diastolic 64–93; PULSE 73–107; RESP 16–26; TEMP 36.6–37; O2SAT 92–97
[2025-08-16 04:25] LABS: Magnesium 2.2 mg/dL (1.7-2.3)
[2025-08-16] MEDS: pantoprazole 40 mg SDV IVP ×2 (08:33→21:19)
--- NOTE | 2025-08-16 10:06 | USCV_ITS ---
Samuel Buck Age: 60 Gender: F : 1965 Exam Date: 08/16/2025 16:07 Ordering Phys: Maddy aCstaneda Technologist: Yonny Rivera Exam Location: [facility] [place] Indication: stroke BP: 144 / 93 HR: Rhythm: Sinus Technical Quality: Adequate MEASUREMENTS (Male / Female) Normal Values 2D ECHO LV Diastolic Diameter PLAX 4.3 cm 4.2 - 5.9 / 3.9 - 5.3 cm IVS Diastolic Thickness 1.3 cm 0.6 - 1.0 / 0.6 - 0.9 cm IVS Systolic Thickness 1.3 cm LVPW Diastolic Thickness 0.6 cm 0.6 - 1.0 / 0.6 - 0.9 cm LVPW Systolic Thickness 1.3 cm LVOT Diameter 2.0 cm LV Ejection Fraction 2D Teich 45.4 % LV Ejection Fraction MOD 4C 46.2 % LV Ejection Fraction MOD 2C 44.2 % LV Ejection Fraction 2C AL 44.5 % LA Diameter 3.1 cm RA Systolic Volume 4C AL 20.2 ml RA Systolic Volume 4C MOD 17.1 ml LA Sys Volume AL 34.1 cm cubed LA Sys Volume Index AL 17.3 cm cubed/m squared Aorta at Sinotubular Diameter 2.2 cm M-MODE LA Ao Ratio MM 1.2 AV Cusp Separation MM 1.9 cm FINDINGS Left Ventricle Right Ventricle Right Atrium Left Atrium IA Septum Mitral Valve Aortic Valve Tricuspid Valve Pulmonic Valve Pericardium Aorta IVC CONCLUSIONS LV systolic function is mildly reduced with EF of 40-45%. No evidence of intracardiac shunting Parker Rosales MD (Electronically Signed) Final Date: 17 August 2025 10:14 S
--- NOTE | 2025-08-16 10:10 | P.PN_ITS ---
<Statement entered by Parker Rosales M.D - 08/16/25 14:17> Patient was cared for in conjunction with an advanced practice practitioner.? I reviewed the chart and all pertinent data including imaging, telemetry, and laboratory results.? I discussed the patient in detail with the advanced practice practitioner.? Please see?their note for progress note, testing results and agreed upon plan of care for the patient. MRI results noted. Medicine team taking over as primary team. Further neuro/medical workup and management per primary team. From cardiac standpoint patient is stable. Continue aspirin, plavix, atorvastatin and coreg. Subjective 2 Subjective: Evaluations by speech, OT and PT today. She does not have any swallowing difficulties, home physical therapy recommended by therapy. Due to the appearance of the MRI will do bubble study today to rule out septal abnormalities. Vitals/I&O/Wt Last Vital Signs Temp 97.9 F 08/16/25 08:00 Pulse 80 08/16/25 09:00 Resp 20 H 08/16/25 09:00 BP 108/68 08/16/25 09:00 Pulse Ox 94 08/16/25 09:00 O2 Del Method Room Air 08/16/25 08:00 O2 Flow Rate 4 08/15/25 20:00 08/15/25 08/16/25 08/16/25 22:59 06:59 14:59 Intake Total 320 / 620 100 / 100 Output Total 350 / 600 250 / 600 Balance -30 / 20 -250 / 20 100 / 100 Weight last 48 hrs Weight 82 lb 8 oz Weight 178 lb 9.191 oz Physical Exam 2 Const: COMMON NORMALS: no acute distress GENERAL APPEARANCE: cooperative and comfortable ORIENTATION/CONSCIOUSNESS: Yes awake, Yes oriented to person and Yes oriented to place Chest: COMMONS NORMALS: normal inspection of the chest and normal palpation of entire chest wall CHEST: Yes Symmetrical chest wall rise Resp: COMMON NORMALS: normal respiratory effort, No retractions, No use of accessory muscles and clear to auscultation bilaterally EFFORT & INSPECTION: Yes symmetric chest movement AUSCULTATION: clear to auscultation bilaterally Cardio: COMMON NORMALS: regular rate, regular rhythm, S1 normal heart sound present, S2 normal heart sound present, No gallops present (Cardio), No clicks present (Cardio), No murmurs present (Cardio) and No rub (Cardio) RATE: r egular rate RHYTHM: regular rhythm HEART SOUNDS: S1 normal heart sound present and S2 normal heart sound present PERIPHERAL PULSES: radial pulses present Extremity: COMMON NORMALS: no pedal edema Neuro: COMMON NORMALS: moves all extremities SENSORIUM/ORIENTATION: Yes oriented to person and Yes oriented to place Urinary Catheter Management: Massey: Cath Placed During This Visit: no Reason for Continuing Indwelling Catheter: Accurate Measurement of Urinary Output in Critically Ill Patients Data 08/16/25 10:03 08/16/25 10:03 Micro: Microbiology 08/14/25 10:15 Urine Culture - Final Urine,Clean Catch 08/14/25 17:18 Blood Culture - Preliminary Blood NEGATIVE TO DATE 08/14/25 17:20 Blood Culture - Preliminary Blood NEGATIVE TO DATE A&P Assessment and plan 1. STEMI (ST elevation myocardial infarction): 2. Acute HFrEF (heart failure with reduced ejection fraction): 3. Cardiopulmonary arrest: 4. Hyperlipidemia: 5. Hypertension: 6. Retroperitoneal hematoma: 7. Acute kidney injury: 8. UTI (urinary tract infection): 9. Blood loss anemia: Plan: Medicine team taking over as primary for this patient, plan of care discussed. Possible discharge later today, once bubble study resulted. Any further neurological workup will be determined by hospitalist service. Continue aspirin, Plavix, carvedilol, statin. Creatinine increased slightly to 1.3, will hold off Entresto for now. PDMP PDMP Reviewed: Not Reviewed Attestations 2 Medical Necessity Statement*: possible discharge Coding Level of Care Code Acute Code for [facility] Diagnoses STEMI (ST elevation myocardial infarction) I21.3 Acute HFrEF (heart failure with reduced ejection fraction) I50.21 Cardiopulmonary arrest I46.9 Hyperlipidemia E78.5 Hypertension I10 Retroperitoneal hematoma K68.3 Acute kidney injury N17.9 UTI (urinary tract infection) N39.0 Blood loss anemia D50.0
[2025-08-16 10:17] LABS: Hematocrit 31.1 % (36-47); Hemoglobin 10.00 g/dL (11.27-16.99); Mean Corpuscular HGB Conc 32.2 g/dL (30-55); Mean Corpuscular Hemoglobin 29.1 pg (27-33); Mean Corpuscular Volume 90.4 fl (85-98); Nucleated Red Blood Cells % 0 %; Platelet Count 208 10^3/cmm (157-399); Red Blood Count 3.44 10^6/uL (3.85-5.65); White Blood Count 9.49 10^3/uL (3.29-11.43)
[2025-08-16 10:40] LABS: Alanine Aminotransferase 33 U/L (0-33); Albumin Level 3.5 g/dL (3.5-5.2); Alkaline Phosphatase 123 U/L (35-105); Anion Gap 15.4 (5-19); Aspartate Amino Transferase 57 U/L (0-32); Blood Urea Nitrogen 29 mg/dL (8-23); Calcium 8.7 mg/dL (8.5-10.5); Carbon Dioxide 23 mmol/L (22-29); Chloride 102 mmol/L (98-107); Creatinine Clr Calc Pharmacy 27.1862; Globulin 2.5 g/dL (1.3-4.6); Glucose 154 mg/dL (65-115); Osmolality Calculated 293 mOsm/kg (285-295); Potassium 3.4 mmol/L (3.5-5.1); Sodium 137 mmol/L (136-145); Total Protein 6.0 g/dL (6.6-8.7)
[2025-08-16] MEDS: cefTRIAXone 1,000 mg SDV 1000 MG IVP (12:09)
--- NOTE | 2025-08-16 12:25 | P.PN_ITS ---
Subjective 2 Subjective: She is doing better today. PT evaluated and recommended home exercise program. CROWNING HAMMER OPERATOR also evaluated her and did not recommend any changes to diet or liquid consistency. MRI showed chronic changes as seen with chronic severe hypertension. There were several tiny foci of diffusion restriction in neck represent small foci of acute ischemia. Bubble study is pending. Medications: Reviewed: Yes Vitals/I&O/Wt Last Vital Signs Temp 97.9 F 08/16/25 08:00 Pulse 80 08/16/25 09:00 Resp 20 H 08/16/25 09:00 BP 108/68 08/16/25 09:00 Pulse Ox 94 08/16/25 09:00 O2 Del Method Room Air 08/16/25 08:00 O2 Flow Rate 4 08/15/25 20:00 08/15/25 08/16/25 08/16/25 22:59 06:59 14:59 Intake Total 320 / 620 100 / 100 Output Total 350 / 350 250 / 600 Balance -30 / 270 -250 / 20 100 / 100 Weight last 48 hrs Weight 37.421 kg Weight 81 kg Physical Exam 2 Const: COMMON NORMALS: no acute distress and patient oriented x3 GENERAL APPEARANCE: cooperative and comfortable ORIENTATION/CONSCIOUSNESS: Yes awake Chest: COMMONS NORMALS: normal inspection of the chest and normal palpation of entire chest wall CHEST: Yes Symmetrical chest wall rise Resp: COMMON NORMALS: normal respiratory effort, No retractions, No use of accessory muscles and clear to auscultation bilaterally EFFORT & INSPECTION: Yes symmetric chest movement AUSCULTATION: clear to auscultation bilaterally Cardio: COMMON NORMALS: regular rate, regular rhythm, S1 normal heart sound present, S2 normal heart sound present, No gallops present (Cardio), No clicks present (Cardio), No murmurs present (Cardio) and No rub (Cardio) RATE: r egular rate RHYTHM: regular rhythm HEART SOUNDS: S1 normal heart sound present and S2 normal heart sound present PERIPHERAL PULSES: radial pulses present Extremity: COMMON NORMALS: no pedal edema Neuro: COMMON NORMALS: patient oriented x3 and moves all extremities Urinary Catheter Management: Massey: Cath Placed During This Visit: no Reason for Continuing Indwelling Catheter: Accurate Measurement of Urinary Output in Critically Ill Patients Data 08/16/25 10:03 08/16/25 10:03 Micro: Microbiology 08/14/25 10:15 Urine Culture - Final Urine,Clean Catch 08/14/25 17:18 Blood Culture - Preliminary Blood NEGATIVE TO DATE 08/14/25 17:20 Blood Culture - Preliminary Blood NEGATIVE TO DATE A&P Assessment and plan 1. STEMI (ST elevation myocardial infarction): Post emergent PCI on 08/12/25 She had total thrombotic occlusion of proximal LAD s/p PCI with 3 stents 1st diagonal had 70% stenosis was treated with balloon angioplasty She also has severe mid RCA and mid-distal circumflex artery with severe stenosis Cardiology plans staged PCI Continue with DAPT, statin Cardiology following 2. Cardiopulmonary arrest: For a brief moment during PCI (<1 min) 3. Transient hypotension: During cardiac cath Blood pressure now 4. Acute HFrEF (heart failure with reduced ejection fraction): Ischemic cardiomyopathy in the setting of acute STEMI. LVEF 35 to 40% with grade 1 diastolic dysfunction She received 2 doses of IV Lasix; she had excellent diuresis Clincally euvolemic at this point Switched to carvedilol yesterday Creatinine has been elevated, cardiology plans to hold off on entresto for now Strict I's and O's and daily weights Telemetry monitoring 5. Blood loss anemia: Secondary to retroperitoneal hematoma. There was also concern for hematemesis She received 1 units of packed red cells on 08/13/2025 Hemoglobin has been stable 6. Hematemesis: Continue with Protonix twice daily along with Carafate ACHS. 7. Retroperitoneal hematoma: Retroperitoneal hemorrhage noted on the right side with hemorrhagic changes extending into the groin 8. Metabolic encephalopathy: She was lethargic earlier this admission but is now alert and fully oriented She had pneumonia; UA suggested UTI but urine culture was negative MRI also showed acute CVA Monitor mental status 9. Acute CVA (cerebrovascular accident): MRI showed several tiny foci of diffusion restriction that could represent small foci of acute ischemia On DAPT Bubble study pending PT, OT, and CROWNING HAMMER OPERATOR consulted 10. Bilateral pneumonia: Bilateral pulmonary parenchymal consolidation in lower lobes and patchy ground glass opacification noted on CT chest on admission. Likely aspiration pneumonia Continue ceftriaxone and azithromycin. 11. Elevated LFTs: LFTs elevated but improving Liver and gallbladder normal on liver ultrasound 12. Hypertension: Goal blood pressure less than 140/90 mmHg. Amlodipine and carvedilol 13. Hyperlipidemia: Continue atorvastatin 14. Elevated serum creatinine: No previous baseline labs Creatinine has been ranging between 1.2-1.4 mg/dL She very well may have CKD and this is her baseline creatinine Holding off entresto for now Monitor renal function Plan: Full code Cardiac diet Protonix for PUD prophylaxis SCDs for DVT prophylaxis. PDMP PDMP Reviewed: Not Reviewed Attestations 2 Medical Necessity Statement*: She needs continue hospitalization for IV antibiotics, telemetry monitoring, and bubble study Coding Level of Care Code Acute Code for [facility] Diagnoses STEMI (ST elevation myocardial infarction) I21.3 Cardiopulmonary arrest I46.9 Transient hypotension I95.9 Acute HFrEF (heart failure with reduced ejection fraction) I50.21 Blood loss anemia D50.0 Hematemesis K92.0 Retroperitoneal hematoma K68.3 Metabolic encephalopathy G93.41 Acute CVA (cerebrovascular accident) I63.9 Bilateral pneumonia J18.9 Elevated LFTs R79.89 Hypertension I10 Hyperlipidemia E78.5 Elevated serum creatinine R79.89
--- NOTE | 2025-08-16 14:07 | PC.NURSE ---
Patient currently refusing blood pressure cuff and pulse oximeter.
--- NOTE | 2025-08-16 15:12 | PC.NURSE ---
Massey discontinued, tolerated well. Report given to CHRISTAL Amin.
--- NOTE | 2025-08-16 15:25 | PC.NURSE ---
Transferred to room 105 via wheelchair. Tolerated well.
--- NOTE | 2025-08-16 15:26 | PC.NURSE ---
Patient transferred from ICU to CSU via a wheelchair at 1520.
[2025-08-17 03:00] VITALS: BP 118/83; BP 119/79; PULSE 100; RESP 17; TEMP 36.4; O2SAT 97
[2025-08-17 04:40] LABS: Hematocrit 30.4 % (36-47); Hemoglobin 10.30 g/dL (11.27-16.99); Mean Corpuscular HGB Conc 33.9 g/dL (30-55); Mean Corpuscular Hemoglobin 29.7 pg (27-33); Mean Corpuscular Volume 87.6 fl (85-98); Nucleated Red Blood Cells % 0 %; Platelet Count 234 10^3/cmm (157-399); Red Blood Count 3.47 10^6/uL (3.85-5.65); White Blood Count 5.96 10^3/uL (3.29-11.43)
[2025-08-17 04:57] LABS: Albumin Level 3.5 g/dL (3.5-5.2); Anion Gap 16.1 (5-19); Blood Urea Nitrogen 24 mg/dL (8-23); Calcium 8.7 mg/dL (8.5-10.5); Carbon Dioxide 22 mmol/L (22-29); Chloride 101 mmol/L (98-107); Glucose 104 mg/dL (65-115); Magnesium 1.9 mg/dL (1.7-2.3); Potassium 3.1 mmol/L (3.5-5.1); Sodium 136 mmol/L (136-145)
[2025-08-17 05:03] LABS: Creatinine Clr Calc Pharmacy 57.0273
[2025-08-17 05:58] VITALS: BMI 31.7
[2025-08-17 07:00] VITALS: BP 102/76; PULSE 85; RESP 25; TEMP 36.6; O2SAT 93
[2025-08-17] MEDS: pantoprazole 40 mg SDV IVP (08:41)
--- NOTE | 2025-08-17 09:13 | P.PN_ITS ---
Subjective 2 Subjective: Patient is doing well. No chest pain Vitals/I&O/Wt Last Vital Signs Temp 97.6 F 08/17/25 03:00 Pulse 100 08/17/25 03:00 Resp 17 08/17/25 03:00 BP 119/79 08/17/25 03:00 Pulse Ox 97 08/17/25 03:00 O2 Del Method Room Air 08/17/25 03:00 O2 Flow Rate 4 08/17/25 03:00 08/16/25 08/17/25 08/17/25 22:59 06:59 14:59 Intake Total 916.667 / 1216.667 Balance 916.667 / 1216.667 Weight last 48 hrs Weight 184 lb 11.958 oz Weight 185 lb 3.013 oz Weight 82 lb 8 oz Physical Exam 2 Narrative: GENERAL: Patient is alert, awake NECK: No jugular vein distension. [] HEENT: No cyanosis. No icterus. No pallor. [] HEART: Regular S1 and S2. LUNGS: Clear to auscultate bilaterally. [] CENTRAL NERVOUS SYSTEM: Grossly nonfocal. [] EXTREMITIES: Lower extremities with no edema bilaterally. Urinary Catheter Management: Massey: Cath Placed During This Visit: yes, but has since been removed by the nurse Reason for Continuing Indwelling Catheter: Accurate Measurement of Urinary Output in Critically Ill Patients Date Urinary Catheter Removed: 08/16/25 Time Urinary Catheter Discontinued: 02:30 Data 08/17/25 03:30 08/17/25 03:30 Micro: Microbiology 08/14/25 10:15 Urine Culture - Final Urine,Clean Catch A&P Assessment and plan 1. STEMI (ST elevation myocardial infarction): 2. Acute HFrEF (heart failure with reduced ejection fraction): 3. Cardiopulmonary arrest: 4. Hyperlipidemia: 5. Hypertension: 6. Retroperitoneal hematoma: 7. Acute kidney injury: 8. UTI (urinary tract infection): 9. Blood loss anemia: Plan: Patient is stable from cardiac standpoint. Continue aspirin and plavix. Continue atorvastatin Neurological work up and treatment per primary team. Thank you for involving us with care of this patient. Please call with questions PDMP PDMP Reviewed: Not Reviewed Attestations 2 Medical Necessity Statement*: Care expected to cross 2 midnights. Coding Level of Care Code Acute Code for [facility] Fwd Diagnoses STEMI (ST elevation myocardial infarction) I21.3 Acute HFrEF (heart failure with reduced ejection fraction) I50.21 Cardiopulmonary arrest I46.9 Hyperlipidemia E78.5 Hypertension I10 Retroperitoneal hematoma K68.3 Acute kidney injury N17.9 UTI (urinary tract infection) N39.0 Blood loss anemia D50.0
[2025-08-17 11:00] VITALS: BP 141/81
--- NOTE | 2025-08-17 11:41 | PC.NURSE ---
Addendum entered by Danielle Giordano RN 08/17/25 15:01: 1145 AM-meds to bed delivered by pharmacy. Original Note: meds to bed will be sent from [facility].
[2025-08-17 11:52] VITALS: BP 141/81; PULSE 88; RESP 18; O2SAT 96
--- NOTE | 2025-08-17 12:45 | PC.NURSE ---
Discharge Note Patient discharged to home via private vehicle accompanied by . Discharge instructions reviewed with patient and/or outside sales account representative. Mobile pharmacy medications and/or prescriptions provided. Belongings/home medications returned.
--- NOTE | 2025-08-17 13:10 | PM.DCS ---
Discharge Providers Date of Admission: 08/12/25 20:34 Date of Discharge: August 17, 2025 Attending Provider at Admission: Parker Rosales M.D Attending Provider at Discharge: Janine Alejandre MD Consults: Consult to internal medicine Primary Care Provider: TARA Martinez Diagnoses at Discharge Discharge Diagnosis 1. STEMI (ST elevation myocardial infarction): 2. Cardiopulmonary arrest: 3. Transient hypotension: 4. Acute HFrEF (heart failure with reduced ejection fraction): 5. Blood loss anemia: 6. Hematemesis: 7. Retroperitoneal hematoma: 8. Metabolic encephalopathy: 9. Acute CVA (cerebrovascular accident): 10. Bilateral pneumonia: 11. Elevated LFTs: 12. Hypertension: 13. Hyperlipidemia: 14. Elevated serum creatinine: Reason for Visit Reason for Visit: stemi Brief History: This is a 60-year-old female with hypertension and hyperlipidemia who presented with chest pain. EKG was consistent with STEMI. She had emergent cardiac catheterization and admission. Hospital Course Hospital Course She had total thrombotic occlusion of the proximal LAD and is status post PCI with 3 stents. The first diagonal had 70% stenosis which was treated with balloon angioplasty. She has remaining severe right mid RCA stenosis and severe mid to distal circumflex artery stenosis which cardiology plans to do staged PCI of. She had transient hypotension and a brief moment of cardiopulmonary arrest during catheterization (less than 1 minute). Her blood pressure has been stable since then. She will need to follow-up with cardiac rehab. She was given the number to call. Her hospital course is complicated by acute blood loss anemia from retroperitoneal hematoma. There was also suspected hematemesis. She was transfused 1 unit of PRBCs on 08/13/2025. Her hemoglobin has been stable. She also had acute decompensated CHF. Her LVEF was initially 35 to 40%. Repeat limited echo showed improvement of her LVEF to 40 to 45%. This is likely ischemic cardiomyopathy. She received IV Lasix twice in had excellent response. She saturating well on room air at this time and is clinically euvolemic. She was started on carvedilol. She had elevated creatinine and cardiology has deferred initiation of other GDMT meds for CHF. She also had acute metabolic encephalopathy which has resolved. MRI was done and showed several tiny foci of diffusion restriction that could represent small foci of acute ischemia. Bubble study did not show any evidence of intracardiac shunting. She is on aspirin and Plavix for both her STEMI and CVA. She was also started on atorvastatin. 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 PT recommended home exercise program. She had elevated LFTs which have improved. Liver and gallbladder appeared normal on RUQ ultrasound. Her serum creatinine was elevated and ranged from 1.1-1.4. She had no baseline labs on record. She may have had CKD. Continue to monitor creatinine. CT chest showed bilateral lung consolidation in the lower lobes and patchy ground glass opacification. This was thought to be aspiration pneumonia. She completed 5 days of antibiotics. Physical Exam Const: COMMON NORMALS: no acute distress and patient oriented x3 GENERAL APPEARANCE: cooperative and comfortable ORIENTATION/CONSCIOUSNESS: Yes awake Chest: COMMONS NORMALS: normal inspection of the chest and normal palpation of entire chest wall CHEST: Yes Symmetrical chest wall rise Resp: COMMON NORMALS: normal respiratory effort, No retractions, No use of accessory muscles and clear to auscultation bilaterally EFFORT & INSPECTION: Yes symmetric chest movement AUSCULTATION: clear to auscultation bilaterally Cardio: COMMON NORMALS: regular rate, regular rhythm, S1 normal heart sound present, S2 normal heart sound present, No gallops present (Cardio), No clicks present (Cardio), No murmurs present (Cardio) and No rub (Cardio) RATE: regular rate RHYTHM: regular rhythm HEART SOUNDS: S1 normal heart sound present and S2 normal heart sound present PERIPHERAL PULSES: radial pulses present Extremity: COMMON NORMALS: no pedal edema Neuro: COMMON NORMALS: patient oriented x3 and moves all extremities Skin: NARRATIVE SKIN EXAM: Ecchymosis right flank and groin Urinary Catheter Management: Massey: Cath Placed During This Visit: yes, but has since been removed by the nurse Reason for Continuing Indwelling Catheter: Accurate Measurement of Urinary Output in Critically Ill Patients Date Urinary Catheter Removed: 08/16/25 Time Urinary Catheter Discontinued: 02:30 Discharge Data Studies Completed and Pending Completed Studies During Hospitalization Category Date Time Status CT ang ches abdpel [id number] Stat Cat Scan 08/13/25 02:[address] head wo con* [id number] Routine Cat Scan 08/13/25 15:59 Completed HEALTH AND SAFETY MANAGER request for service Stat Exams 08/12/25 18:36 Completed CXRP [XR chest 1V portable [id number]] Routine Exams 08/14/25 09:44 Completed XR chest 1V portable [id number] Routine Exams 08/13/25 21:23 Completed XR chest 1V portable [id number] Stat Exams 08/12/25 18:26 Completed MR head wo con* [id number] Routine MRI 08/15/25 09:09 Completed CV. echo complete* [id number] Routine Ultrasound 08/13/25 21:11 Completed CV. echo lmt wo/w bubble [id number] Routine Ultrasound 08/16/25 10:06 Completed US liver [id number] Routine Ultrasound 08/14/25 16:56 Completed Pending at discharge Category Date Time Status Blood Culture Stat Lab 08/14/25 17:18 Results Radiology Impressions Chest/Abdomen/Pelvis CTA 08/13/25 02:59 IMPRESSION: 1. There is retroperitoneal hemorrhage on the right side. There are diffuse infiltrative hemorrhagic changes which extend into the right groin. Recent arterial catheterization is suspected. 2. Suboptimal opacification of the abdominal aorta is noted with limited opacification of the iliac vessels bilaterally. Further limitation resulting from hardware artifact related to right total hip replacement is also noted. Hence, no evidence of active bleeding is appreciated, though this is not excluded. 3. Vicarious excretion of contrast associated with the gallbladder is noted and there is evidence of bilateral renal excretion and opacification of the urinary bladder. This indicates recent administration of iodinated contrast, possibly related to recent angiographic evaluation using right groin access. 4. Bilateral pulmonary parenchymal consolidation associated with the lower lobes is noted. This may indicate evidence of bilateral aspiration. 5. Additional patchy ground-glass opacification with a relatively peripheral distribution throughout the lungs bilaterally is also noted. 6. Incidental observations are detailed above. ADDENDUM: 08/13/25 0425 Findings were reviewed with Dr. Michelle Jiménez , at 4:10 a.m. on 08/13/2025. Head CT 08/13/25 15:59 IMPRESSION: 1. No acute intracranial abnormality. 2. Moderate diffuse parenchymal volume loss. 3. Extensive chronic microangiopathic white matter changes. Chest X-Ray 08/14/25 09:44 Impression: 1. No change in patchy pulmonary opacities which may represent interstitial edema. 2. Atherosclerosis. Liver Ultrasound 08/14/25 16:56 IMPRESSION: No acute findings. Head MRI 08/15/25 09:09 IMPRESSION: 1. Chronic changes as seen with chronic severe hypertension 2. Several tiny foci of diffusion restriction as detailed above. These could represent small foci of acute ischemia Laboratory Results WBC 5.96 10^3/uL (3.29-11.43) 08/17/25 03:30 Corrected WBC Cancelled 08/15/25 05:13 RBC 3.47 10^6/uL (3.85-5.65) L 08/17/25 03:30 Hgb 10.30 g/dL (11.27-16.99) L 08/17/25 03:30 Hct 30.4 % (36-47) L 08/17/25 03:30 MCV 87.6 fl (85-98) 08/17/25 03:30 MCH 29.7 pg (27-33) 08/17/25 03:30 MCHC 33.9 g/dL (30-55) D 08/17/25 03:30 RDW 13.1 % (12.1-15.1) 08/17/25 03:30 Plt Count 234 10^3/cmm (157-399) 08/17/25 03:30 MPV 10.4 fL (7.4-10.4) 08/17/25 03:30 Gran % Cancelled 08/15/25 05:13 Neut % (Auto) 68.6 % 08/17/25 03:30 Lymph % (Auto) 15.3 % 08/17/25 03:30 [place] % (Auto) 10.4 % 08/17/25 03:30 Eos % (Auto) 4.4 % 08/17/25 03:30 Baso % (Auto) 0.8 % 08/17/25 03:30 Neut # (Auto) 4.09 10^3/uL (1.8-7.7) 08/17/25 03:30 Lymph # (Auto) 0.9 10^3/uL (0.8-4.8) 08/17/25 03:30 [place] # (Auto) 0.6 10^3/uL (0.2-0.9) 08/17/25 03:30 Eos # (Auto) 0.3 10^3/uL (0.0-0.8) 08/17/25 03:30 Baso # (Auto) 0.1 10^3/uL (0.0-0.1) 08/17/25 03:30 Absolute Gran (auto) Cancelled 08/15/25 05:13 Nucleated RBC % (auto) 0 % 08/17/25 03:30 Nucleated RBCs # 0.0 /100WBC 08/17/25 03:30 PT 12.70 SECONDS (12.1-14.9) 08/12/25 18:36 INR 0.89 (0.8-1.2) 08/12/25 18:36 APTT 28.5 SECONDS (23.9-36.7) 08/12/25 18:36 Specimen Type Arterial 08/14/25 10:21 Sample Site Radial, left 08/14/25 10:21 ABG pH 7.51 (7.35-7.45) H 08/14/25 10:21 ABG pCO2 31.8 mmHg (35-45) L 08/14/25 10:21 ABG pO2 65.5 mmHg (80.0-100.0) L 08/14/25 10:21 ABG PO2/FiO2 Ratio 311 08/14/25 10:21 ABG HCO3 25.4 mmol/L (22-26) 08/14/25 10:21 ABG O2 Saturation 95.6 08/14/25 10:21 ABG Base Excess 2.8 mmol/L (-2.0-2.0) H 08/14/25 10:21 Julien Test Pos 08/14/25 10:21 A-a O2 Gradient 5.9 mmHg (5-10) 08/14/25 10:21 Hematocrit 37.9 % (37-47) 08/14/25 10:21 Hgb O2 Saturation 93.2 % (95-100) L 08/14/25 10:21 Carboxyhemoglobin 1.6 %THgb (0.4-20.1) 08/14/25 10:21 Methemoglobin 0.9 % (0.4-1.5) 08/14/25 10:21 Total Hemoglobin 12.4 g/dL (12-16) 08/14/25 10:21 Sodium 141.0 mmol/L (131-143) 08/14/25 10:21 Potassium 3.3 mmol/L (3.5-5.0) L 08/14/25 10:21 Glucose 127.0 mg/dL (70-115) H 08/14/25 10:21 Ionized Calcium 1.2 mmol/L (1.1-1.4) 08/14/25 10:21 O2 Delivery Device Room air 08/14/25 10:21 FiO2 21.0 % 08/14/25 10:21 Tool And Gauge Inspector ID Gd 08/14/25 10:21 Sodium 136 mmol/L (136-145) 08/17/25 03:30 Potassium 3.1 mmol/L (3.5-5.1) L 08/17/25 03:30 Chloride 101 mmol/L (98-107) 08/17/25 03:30 Carbon Dioxide 22 mmol/L (22-29) 08/17/25 03:30 Anion Gap 16.1 (5-19) 08/17/25 03:30 BUN 24 mg/dL (8-23) H 08/17/25 03:30 Creatinine 1.1 mg/dL (0.5-0.9) H 08/17/25 03:30 GFR Calculation 50.7 mL/min (90-130) L 08/17/25 03:30 Glucose 104 mg/dL (65-115) 08/17/25 03:30 POC Glucose 156 mg/dL (70-110) H 08/13/25 13:32 Estimat Average Glucose 97 08/13/25 03:57 Hemoglobin A1c 5.0 % (4.0-6.0) 08/13/25 03:57 Calculated Osmolality 293 mOsm/kg (285-295) 08/16/25 10:03 Lactate 1.4 mmol/L (0.5-2.2) 08/14/25 08:40 Calcium 8.7 mg/dL (8.5-10.5) 08/17/25 03:30 Phosphorus 2.8 mg/dL (2.5-4.5) 08/17/25 03:30 Magnesium 1.9 mg/dL (1.7-2.3) 08/17/25 03:30 Iron 83 ug/dL (37-145) 08/13/25 03:57 TIBC 250 mcg/dl 08/13/25 03:57 % Saturation 33.2 % (20-50) 08/13/25 03:57 Unsat Iron Binding 167 ug/dL (112-347) 08/13/25 03:57 Total Bilirubin 1.1 mg/dL (0.15-1.2) 08/16/25 10:03 AST 57 U/L (0-32) H 08/16/25 10:03 ALT 33 U/L (0-33) 08/16/25 10:03 Alkaline Phosphatase 123 U/L (35-105) H 08/16/25 10:03 Ammonia 26 umol/L (11-51) 08/14/25 09:55 Troponin T Baseline 44 ng/L (0-10) H 08/12/25 18:36 Troponin T Hi Sens 6Hr > 52269 ng/L (0-10) H 08/13/25 01:07 Troponin T Hi Sens 6Hr Delta 9956.0 ng/L (0-12) H* 08/13/25 01:07 NT-Pro-B Natriuret Pep 2428 pg/mL (0-125) H 08/12/25 18:36 Total Protein 6.0 g/dL (6.6-8.7) L 08/16/25 10:03 Albumin 3.5 g/dL (3.5-5.2) 08/17/25 03:30 Globulin 2.5 g/dL (1.3-4.6) 08/16/25 10:03 Triglycerides 222 mg/dL (0-150) H 08/14/25 06:32 Cholesterol 160 mg/dL (0-200) 08/14/25 06:32 LDL Cholesterol, Calc 82 mg/dL (50-129) 08/14/25 06:32 Total VLDL Cholesterol 44 mg/dL (0-30) H 08/14/25 06:32 HDL Cholesterol 34 mg/dL (60-100) L 08/14/25 06:32 Cholesterol/HDL Ratio 4.71 mg/dL (0.0-4.40) H 08/14/25 06:32 Lipase 34 U/L (13-60) 08/12/25 18:36 Vitamin B12 399 pg/mL (232-1245) 08/13/25 03:57 Folate 5.8 ng/mL (4.8-37.3) 08/14/25 06:32 Procalcitonin 0.23 ng/mL (0-0.5) 08/14/25 06:32 TSH 2.09 uIU/mL (0.27-4.20) 08/13/25 03:57 Urine Color [place] (Yellow) A 08/14/25 10:15 Urine Appearance Clear (CLEAR) 08/14/25 10:15 Urine pH 5.5 (5-7) 08/14/25 10:15 Ur Specific [place] 1.017 (1.005-1.030) 08/14/25 10:15 Urine Protein 1+ (Negative) A 08/14/25 10:15 Urine Glucose (UA) Negative (Normal) 08/14/25 10:15 Urine Ketones Negative (Negative) 08/14/25 10:15 Urine Blood 2+ (Negative) A 08/14/25 10:15 Urine Nitrate Negative (Negative) 08/14/25 10:15 Urine Bilirubin Negative (Negative) 08/14/25 10:15 Urine Urobilinogen 0.2 mg/dL (Negative) 08/14/25 10:15 Ur Leukocyte Esterase 1+ (Negative) A 08/14/25 10:15 Urine RBC 10-15 /hpf (0-2) H 08/14/25 10:15 Urine WBC 0-4 /hpf (0-5) H 08/14/25 10:15 Ur Squamous Epith Cells 5-10 /hpf (0-5) H 08/14/25 10:15 Amorphous Sediment Not Reportable 08/14/25 10:15 Urine Bacteria Trace /hpf (NONE) 08/14/25 10:15 Hyaline Casts 0-4 /lpf H 08/14/25 10:15 Urine Mucus Trace /hpf 08/14/25 10:15 Ur Oval Fat Bodies 1+ /hpf 08/14/25 10:15 Blood Type O Positive 08/14/25 00:30 Rho(D) Type Rh positive 08/14/25 00:30 Antibody Screen Negative 08/14/25 00:30 Crossmatch See Detail 08/14/25 00:30 Vitals Last Vital Signs Temp 97.8 F 08/17/25 07:00 Pulse 88 08/17/25 11:52 Resp 18 08/17/25 11:52 BP 141/81 08/17/25 11:52 Pulse Ox 96 08/17/25 11:52 O2 Del Method Room Air 08/17/25 07:00 O2 Flow Rate 4 08/17/25 03:00 Discharge Plan Discharge Patient Disposition: Home Condition: Stable Prescriptions: New atorvastatin 40 mg Tablet 80 mg PO BEDTIME Qty: 30 1RF carvedilol 12.5 mg Tablet 12.5 mg PO BID Qty: 60 1RF clopidogrel 75 mg Tablet 75 mg PO DAILY Qty: 30 1RF amlodipine 5 mg Tablet 5 mg PO DAILY Qty: 30 1RF aspirin 81 mg Tablet,Delayed Release (Dr/Ec) 81 mg PO DAILY Qty: 30 1RF nitroglycerin 0.4 mg Tablet, Sublingual 0.4 mg sublingual Q5M PRN (Reason: Chest Pain) Qty: 30 1RF Discontinued Advil PM 200-38 mg Tablet 2 tab PO BEDTIME Discharge Order = DC NOW: Discharge Order (Routine); Ordered 08/17/25 Ordered By: Johana Alejandre Referrals: Opal Santiago MD [Physician, Neurology] Referral Note: We have notified your physician's clinic of the need for a follow-up appointment to be scheduled. If you have not heard from them within the next 2 business days, please call them directly. Frankie Deleon FNP [Primary Care Provider, Nurse Practitioner] Referral Note: please call office Tuesday to make a follow up appt within the next 7-10 days Matti Dougherty MD [Physician, Cardiology] Referral Note: We have notified your physician's clinic of the need for a follow-up appointment to be scheduled. If you have not heard from them within the next 2 business days, please call them directly. Discharge Diet: Cardiac Discharge Activity: As per cardiac/pulm rehab instructions Patient Instructions: Nitroglycerin (By mouth), Aspirin (By mouth), Amlodipine (By mouth), Atorvastatin (By mouth), Carvedilol (By mouth), Clopidogrel (By mouth), Heart Attack (DC), Coronary Artery Disease (DC), Coronary Angioplasty (DC), Heart Healthy Diet (DC), Lay Person CPR on Adults (GEN), Self Care Measures After a Stroke (DC), Cardiac Rehabilitation (DC), Coronary Intravascular Stent Placement (DC), CHF Stoplight, Chest Pain Stoplight, Opioid Safety, Post Heart Attack Stoplight, Stroke Stoplight, Patient Portal & Kelechi Instructions Activity Restrictions/Additional Instructions: Please call cardiac rehab [phone] to arrange outpatient followup. If any increasing chest pain that is not relieved by medications, worsening shortness of breath, bleeding in nose, mouth or bright, black tarry stools or stroke like symptoms or loss of consciousness to call 911 and come to ER JULIO C. Discharge Attestations Time Spent in Discharge Care*: greater than 30 min Quality Metrics Clinical Quality Measures [ Acute Myocardial Infaction { Clinical Trial Participant: No; Contraindication to aspirin: None; Aspirin prescribed; Contraindication to statin: None; Statin prescribed;}. Cerebrovascular Accident { Contraindication to Antithrombotic: None; antithrombotic prescribed; Contraindication to Anticoagulation: Medical contraindication; Contraindication to Statin: None; Statin prescribed;}] Coding Level of Care Code 28947 Diagnoses STEMI (ST elevation myocardial infarction) I21.3 Cardiopulmonary arrest I46.9 Transient hypotension I95.9 Acute HFrEF (heart failure with reduced ejection fraction) I50.21 Blood loss anemia D50.0 Hematemesis K92.0 Retroperitoneal hematoma K68.3 Metabolic encephalopathy G93.41 Acute CVA (cerebrovascular accident) I63.9 Bilateral pneumonia J18.9 Elevated LFTs R79.89 Hypertension I10 Hyperlipidemia E78.5 Elevated serum creatinine R79.89
--- NOTE | 2025-08-17 14:28 | PC.NURSE ---
called patient and talk to community sports coordinator Marzena called the pt to inform her that hospitalist ordered for her to get a blood draw-BMP within a week. Leo is also informed.
== END 2025-08-17 12:45 | disposition home or self-care (01) | DRG 174 ==
LOC: ER 18:36 → OPS 18:50 → ICU 20:35 → CSU 08-16 15:25
PROVIDERS: Internal Medicine; Student in an Organized Health Care Education/Training Program; Admitting Provider Internal Medicine; Emergency Provider Emergency Medicine; PCP Nurse Practitioner; Visit Provider Internal Medicine
PROC: 027036Z Dilation of Coronary Artery, One Artery with Three Drug-eluting Intraluminal Devices, Percutaneous Approach (ICD-10-PCS; principal; 2025-08-12 18:30)
DX: I21.02 ST elevation (STEMI) myocardial infarction involving left anterior descending coronary artery (principal); I46.9 Cardiac arrest, cause unspecified; I95.89 Other hypotension; I11.0 Hypertensive heart disease with heart failure; I50.23 Acute on chronic systolic (congestive) heart failure; D62 Acute posthemorrhagic anemia; I97.630 Postprocedural hematoma of a circulatory system organ or structure following a cardiac catheterization; G93.41 Metabolic encephalopathy; Z86.73 Personal history of transient ischemic attack (TIA), and cerebral infarction without residual deficits; N39.0 Urinary tract infection, site not specified; F03.90 Unspecified dementia, unspecified severity, without behavioral disturbance, psychotic disturbance, mood disturbance, and anxiety; E87.20 Acidosis, unspecified; N17.9 Acute kidney failure, unspecified; I47.20 Ventricular tachycardia, unspecified; F17.210 Nicotine dependence, cigarettes, uncomplicated; J69.0 Pneumonitis due to inhalation of food and vomit; K92.0 Hematemesis; E78.5 Hyperlipidemia, unspecified; R74.8 Abnormal levels of other serum enzymes
CPT/HCPCS: 36415; 36416; 36430; 36600; 51702; 70450; 70551; 71045; 71275; 74174; 76705; 80048; 80051; 80053; 80061; 80069; 81001; 82140; 82330; 82607; 82746; 82805; 82962; 83036; 83540; 83550; 83605; 83690; 83735; 83880; 84145; 84443; 84484; 85014; 85018; 85025; 85347; 85610; 85730; 86850; 86900; 86920; 87040; 87086; 92523; 92610; 92920; 92941; 92973; 92978; 93005; 93306; 96374; 96375; 97110; 97116; 97162; 97167; 97530; 99152; 99153; 99285; C1725; C1753; C1757; C1760; C1769; C1874; C1887; C1894; C8924; G0269; J0360; J0696; J1644; J1938; J2060; J2185; J2250; J2270; J2371; J2405; J2470; J3010; J3480; J3490; J7030; J7040; J9999; P9016; Q0144; Q9967

== ENCOUNTER 2025-08-19 09:53 | Outpatient (CLI) | payer SELFPAY ==
[2025-08-19 12:01] LABS: Anion Gap 17.1 (5-19); Blood Urea Nitrogen 18 mg/dL (8-23); Calcium 9.0 mg/dL (8.5-10.5); Carbon Dioxide 20 mmol/L (22-29); Chloride 104 mmol/L (98-107); Glucose 103 mg/dL (65-115); Osmolality Calculated 286 mOsm/kg (285-295); Potassium 4.1 mmol/L (3.5-5.1); Sodium 137 mmol/L (136-145)
== END 2025-08-19 09:54 | disposition home or self-care (01) ==
PROVIDERS: PCP Nurse Practitioner; Visit Provider Student in an Organized Health Care Education/Training Program
DX: R79.89 Other specified abnormal findings of blood chemistry (principal)
CPT/HCPCS: 36415; 80048

== ENCOUNTER 2025-08-23 13:55 | Emergency (ER) | payer SELFPAY ==
[2025-08-23 13:57] VITALS: BP 133/92; PULSE 84; RESP 18; TEMP 36.8; O2SAT 96
--- NOTE | 2025-08-23 14:05 | ECG_ITS ---
[facility] Test Date: 2025-08-23 Pat Name: Samuel Buck Department: Room: Gender: Female Regional Operations Director: : 1965 Requested By: Bibi Ruffin Order Number: [id number] Jose MD: Parker Rosales M.D. Measurements Intervals [place] Rate: 80 P: -1 AK: 151 QRS: 10 QRSD: 96 T: 108 QT: 386 QTc: 448 Interpretive Statements SINUS RHYTHM NONSPECIFIC T-WAVE ABNORMALITY Compared to ECG 08/13/2025 00:09:24 T-wave abnormality now present Ventricular premature complex(es) no longer present Myocardial infarct finding no longer present Electronically Signed On 08-24-2025 11:58:15 CDT by Parker Rosales M.D. [email or web address]
[2025-08-23 15:33] LABS: Hematocrit 34.9 % (36-47); Hemoglobin 11.40 g/dL (11.27-16.99); Mean Corpuscular HGB Conc 32.7 g/dL (30-55); Mean Corpuscular Hemoglobin 29.5 pg (27-33); Mean Corpuscular Volume 90.2 fl (85-98); Nucleated Red Blood Cells % 0 %; Platelet Count 595 10^3/cmm (157-399); Red Blood Count 3.87 10^6/uL (3.85-5.65); White Blood Count 12.89 10^3/uL (3.29-11.43)
[2025-08-23 16:03] LABS: Alanine Aminotransferase 46 U/L (0-33); Albumin Level 3.9 g/dL (3.5-5.2); Alkaline Phosphatase 259 U/L (35-105); Anion Gap 20.3 (5-19); Aspartate Amino Transferase 44 U/L (0-32); Blood Urea Nitrogen 14 mg/dL (8-23); Calcium 9.0 mg/dL (8.5-10.5); Carbon Dioxide 18 mmol/L (22-29); Chloride 103 mmol/L (98-107); Creatinine Clr Calc Pharmacy 77.7297; Globulin 2.7 g/dL (1.3-4.6); Glucose 117 mg/dL (65-115); Osmolality Calculated 286 mOsm/kg (285-295); Potassium 4.3 mmol/L (3.5-5.1); Sodium 137 mmol/L (136-145); Total Protein 6.6 g/dL (6.6-8.7)
--- NOTE | 2025-08-23 16:04 | XRR_ITS ---
PROCEDURE INFORMATION: Exam: XR Thoracic Spine Exam date and time: 08/23/2025 4:26 PM Age: 60 years old Clinical indication: Injury or trauma; Fall; Blunt trauma (contusions or hematomas); Injury details: Reports right side back, right abd, and right leg pain. Fell; Additional info: Pain/fall TECHNIQUE: Imaging protocol: Radiologic exam of the thoracic spine. Views: 3 views. COMPARISON: CR XR chest 1V portable [id number] 08/14/2025 10:09 AM FINDINGS: Bones/joints: Mild levoconvex scoliosis of the upper thoracic spine. Soft tissues: Unremarkable. Lungs: Visualized lungs are unremarkable. XR/XR thoracic spine 3V* [id number] IMPRESSION: No acute findings.
[2025-08-23 16:05] LABS: Troponin(5th) Baseline 1675 ng/L (0-10)
--- NOTE | 2025-08-23 16:05 | W.ED.FALL ---
HPI - Fall General: Chief Complaint: Fall Stated Complaint: Dizzy Fell on R side of body Time Seen by Provider: 08/23/25 15:46 Source: patient and family Mode of arrival: ambulatory Limitations: no limitations History of Present Illness: Patient is a 60-year-old female presents to ED today along with family for evaluation of back pain. 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 Patient states her back is hurt even while she was in the hospital and has continued to hurt since she has been home. Family feels like it may be more muscle spasm related as she can be sitting in no acute discomfort and then immediately wince/grimace complaining of discomfort. She has intermittently had some dizziness upon discharge mainly with positional changes. Patient states she had a fall today-reporting this was more mechanical-onto her right side and now her back hurts even more. Friend also states she lifted something heavy (suitcase) and twisted and maybe injuried her back this way. No other injuries or trauma. She denies striking her head or LOC. She states she has been ambulatory since the fall. MD complaint: fall Onset (ago): hour(s) Fall from: standing Fall witnessed: yes, by family Place fall occurred: home Loss of consciousness: None Prolonged down time: no Symptoms prior to fall: none Context: tripped/slipped Location of injury: back Associated symptoms-after fall: Reports no associated symptoms; Denies chest pain, difficulty walking, headache(s) or neck pain Related Data Previous Rx's ?Medication ?Instructions ?Recorded amlodipine 5 mg tablet 5 mg PO DAILY #30 tabs 08/17/25 aspirin 81 mg tablet,delayed 81 mg PO DAILY #30 tabs 08/17/25 release atorvastatin 40 mg tablet 80 mg (2 x 40 mg) PO BEDTIME #30 08/17/25 tabs carvedilol 12.5 mg tablet 12.5 mg PO BID #60 tabs 08/17/25 clopidogrel 75 mg tablet 75 mg PO DAILY #30 tabs 08/17/25 nitroglycerin 0.4 mg sublingual 0.4 mg sublingual Q5M PRN Chest 08/17/25 tablet Pain #30 tabs cyclobenzaprine 10 mg tablet 10 mg PO TID #14 tabs 08/23/25 Allergies Allergy/AdvReac Type Severity Reaction Status Date / Time Pork/Porcine Containing Allergy ADR-Diarrhe Verified 08/15/25 18:48 Products a Review of Systems Const: Denies: fever(s), chills, body aches, fatigue or malaise Eyes: Denies: change in vision, blurry vision, photophobia, floaters or seeing flashes Card: Denies: chest pain, palpitations, irregular heart rhythm, edema, syncope, pre-syncope, dyspnea on exertion or orthopnea Resp: Denies: dyspnea GI: Denies: nausea or vomiting Musc: Reports: back pain; Denies: neck pain, extremity pain, extremity swelling, joint pain, joint swelling or joint redness Skin/Breast: Denies: rash Neuro: Reports: dizziness (intermittent-mainly with positional changes); Denies: headache(s), numbness in extremities, weakness in extremities, sensory changes or difficulty walking PFS ED PFSH: Medical History Long QT syndrome Bronchitis Hypertension Surgical History History of right hip replacement H/O tubal ligation Family History Mother Hypertension Social History Smoking and tobacco/nicotine status: current every day tobacco/nicotine user cigarettes Packs smoked per day: 1 Physical Exam Const: COMMON NORMALS: no acute distress, average body habitus, patient oriented x3, no limitations, alert and well nourished GENERAL APPEARANCE: cooperative ORIENTATION/CONSCIOUSNESS: Yes awake, Yes oriented to person, Yes oriented to place and Yes oriented to time Neck/C-Spine: COMMON NORMALS: no JVD Resp: COMMON NORMALS: normal respiratory effort and clear to auscultation bilaterally AUSCULTATION: clear to auscultation bilaterally Cardio: COMMON NORMALS: no JVD, regular rate and regular rhythm RATE: regular rate RHYTHM: regular rhythm GI: COMMON NORMALS: Normal to inspection, nondistended, normoactive bowel sounds present, Soft to palpation, non-tender, No hepatosplenomegaly present and no masses PALPATION: Yes Soft to palpation and Yes No hepatosplenomegaly present : COMMON NORMALS: Yes no CVA tenderness BLADDER/KIDNEY EXAM: Yes no CVA tenderness Back/Pelvis: COMMON NORMALS: no CVA tenderness, thoracic and lumbar spine normal to inspection, thoraco-lumbar ROM normal and straight leg raise negative bilaterally THORACIC SPINE/UPPER BACK: Yes thoracic spinal tenderness and Yes paraspinal muscle tenderness LUMBAR SPINE/LOWER BACK: No lumbar spinal tenderness BACK IMAGE (FEMALE):  1. 2. reproducible tenderness Extremity: COMMON NORMALS: normal to inspection and full ROM GENERAL: Yes normal exam except as noted Neuro: COMMON NORMALS: patient oriented x3, moves all extremities, no focal motor deficits and no sensory deficits noted SENSORIUM/ORIENTATION: Yes alert, Yes oriented to person, Yes oriented to place and Yes oriented to time Skin: COMMON NORMALS: no rashes or lesions noted GENERAL SKIN EXAM: no rashes or lesions noted Course Vital Signs: Vital signs: Vital Signs Temperature 98.2 F 08/23/25 13:57 Pulse Rate 78 08/23/25 18:00 Respiratory Rate 16 08/23/25 18:00 Blood Pressure 147/108 08/23/25 18:00 Pulse Oximetry 96 08/23/25 18:00 Oxygen Delivery Me thod Room Air 08/23/25 18:00 MDM - Fall Medical Decision Making Patient is a 60-year-old female here for mid back pain following a fall. Patient states she was having back pain prior to the fall and now it is worse. She denies any other injury sustained during the fall. 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 She feels like she is doing okay from that aspect. She has not had any episodes of chest pain, shortness of breath, difficulty breathing. She has had occasional episodes of dizziness mainly with positional changes. Patient states she has been ambulatory since her fall today. Patient's blood work today showing mild elevations to her LFTs. These have been intermittently present previously. They were somewhat elevated while she was in the hospital and she did have a liver ultrasound that was unremarkable. Patient had troponins ordered from the waiting room. Again she has no complaints of chest pain during my examination with her. Her baseline troponin is 1675-I suspect this is trending down from her troponin that was over 10,000 at time of discharge from the hospital. Her EKG is nonischemic. 2-hour troponin trending down. I did speak to Dr. Stallworth who agreed this most likely was trending down from her recent catheterization. Patient was given medications here for her back pain and reports significant improvement. Thoracic XR was unremarkable. Patient will be allowed discharge with recommendations to follow-up with cardiology as scheduled. Return to ED precautions discussed. Medical Records I reviewed the patient's medical records. Lab Data I reviewed the patient's lab results. 08/23/25 15:18 08/23/25 15:18 Radiology Impressions Thoracic Spine X-Ray 08/23/25 16:04 IMPRESSION: No acute findings. Laboratory Results WBC 12.89 10^3/uL (3.29-11.43) H 08/23/25 15:18 RBC 3.87 10^6/uL (3.85-5.65) 08/23/25 15:18 Hgb 11.40 g/dL (11.27-16.99) 08/23/25 15:18 Hct 34.9 % (36-47) L 08/23/25 15:18 MCV 90.2 fl (85-98) 08/23/25 15:18 MCH 29.5 pg (27-33) 08/23/25 15:18 MCHC 32.7 g/dL (30-55) 08/23/25 15:18 RDW 13.3 % (12.1-15.1) 08/23/25 15:18 Plt Count 595 10^3/cmm (157-399) H 08/23/25 15:18 MPV 9.5 fL (7.4-10.4) 08/23/25 15:18 Neut % (Auto) 81.8 % 08/23/25 15:18 Lymph % (Auto) 9.4 % 08/23/25 15:18 Powell % (Auto) 5.8 % 08/23/25 15:18 Eos % (Auto) 1.5 % 08/23/25 15:18 Baso % (Auto) 0.9 % 08/23/25 15:18 Neut # (Auto) 10.55 10^3/uL (1.8-7.7) H 08/23/25 15:18 Lymph # (Auto) 1.2 10^3/uL (0.8-4.8) 08/23/25 15:18 Powell # (Auto) 0.8 10^3/uL (0.2-0.9) 08/23/25 15:18 Eos # (Auto) 0.2 10^3/uL (0.0-0.8) 08/23/25 15:18 Baso # (Auto) 0.1 10^3/uL (0.0-0.1) 08/23/25 15:18 Nucleated RBC % (auto) 0 % 08/23/25 15:18 Nucleated RBCs # 0.0 /100WBC 08/23/25 15:18 Sodium 137 mmol/L (136-145) 08/23/25 15:18 Potassium 4.3 mmol/L (3.5-5.1) 08/23/25 15:18 Chloride 103 mmol/L (98-107) 08/23/25 15:18 Carbon Dioxide 18 mmol/L (22-29) L 08/23/25 15:18 Anion Gap 20.3 (5-19) H 08/23/25 15:18 BUN 14 mg/dL (8-23) 08/23/25 15:18 Creatinine 0.8 mg/dL (0.5-0.9) 08/23/25 15:18 GFR Calculation 73.2 mL/min (90-130) L 08/23/25 15:18 Glucose 117 mg/dL (65-115) H 08/23/25 15:18 Calculated Osmolality 286 mOsm/kg (285-295) 08/23/25 15:18 Calcium 9.0 mg/dL (8.5-10.5) 08/23/25 15:18 Total Bilirubin 1.8 mg/dL (0.15-1.2) H 08/23/25 15:18 AST 44 U/L (0-32) H 08/23/25 15:18 ALT 46 U/L (0-33) H 08/23/25 15:18 Alkaline Phosphatase 259 U/L (35-105) H 08/23/25 15:18 Troponin T Baseline 1675 ng/L (0-10) H* 08/23/25 15:18 Troponin T 120 Minute 1498 ng/L (0-10) H 08/23/25 17:32 Delta Troponin T -177 ABS# (0-10) L 08/23/25 17:32 NT-Pro-B Natriuret Pep 6870 pg/mL (0-125) H 08/23/25 15:18 Total Protein 6.6 g/dL (6.6-8.7) 08/23/25 15:18 Albumin 3.9 g/dL (3.5-5.2) 08/23/25 15:18 Globulin 2.7 g/dL (1.3-4.6) 08/23/25 15:18 All radiology interpretation(s) finalized by discharge Discharge Plan Discharge Patient Disposition: Home Clinical Impression: Back pain, thoracic Qualifiers: Chronicity: acute Back pain laterality: midline Qualified Code(s): M54.6 - Pain in thoracic spine Condition: Stable Prescriptions: New cyclobenzaprine 10 mg tablet 10 mg PO TID Qty: 14 0RF No Action atorvastatin 40 mg Tablet 80 mg PO BEDTIME Qty: 30 1RF carvedilol 12.5 mg Tablet 12.5 mg PO BID Qty: 60 1RF clopidogrel 75 mg Tablet 75 mg PO DAILY Qty: 30 1RF amlodipine 5 mg Tablet 5 mg PO DAILY Qty: 30 1RF aspirin 81 mg Tablet,Delayed Release (Dr/Ec) 81 mg PO DAILY Qty: 30 1RF nitroglycerin 0.4 mg Tablet, Sublingual 0.4 mg sublingual Q5M PRN (Reason: Chest Pain) Qty: 30 1RF Discharge Orders: Discharge ED (Routine); Ordered 08/23/25 Ordered By: Geovanna Lynch Referrals: Frankie Deleon, [employer] [Primary Care Provider, Nurse Practitioner] Patient Instructions: Patient Portal & [facility] Instructions Activity Restrictions/Additional Instructions: As we discussed, please follow-up with cardiology on Tuesday as scheduled. You need to return to the emergency department for onset of chest pain, shortness of breath, difficulty breathing, generally feeling worse or unwell, uncontrollable back pain, or any other concerns you may have. Print Language: American Coding Level of Care Code ED Electrical Test Technician for Jagruti Garsia
[2025-08-23 16:11] LABS: NT Pro B Type Natriuretic Pept 6870 pg/mL (0-125)
--- NOTE | 2025-08-23 16:48 | ECG_ITS ---
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 Measurements Intervals [place] Rate: 78 P: 31 W[place]: 165 QRS: 27 QRSD: 111 T: 90 QT: 415 QTc: 473 Interpretive Statements SINUS RHYTHM MODERATE INTRAVENTRICULAR CONDUCTION DELAY [110+ ms QRS DURATION] NONSPECIFIC T-WAVE ABNORMALITY Compared to ECG 08/23/2025 14:05:11 Intraventricular conduction delay now present T-wave abnormality still present Electronically Signed On 08-24-2025 12:06:51 CDT by Parker Rosales M.D. [email or web address]
[2025-08-23] MEDS: orphenadrine 30 mg/mL Inj 2 mL 60 MG IVP (16:50)
[2025-08-23 17:44] VITALS: BP 144/87; PULSE 75; RESP 16; O2SAT 96
[2025-08-23 18:00] VITALS: BP 147/108; PULSE 78; RESP 16; O2SAT 96
[2025-08-23 18:22] LABS: Troponin 5 2HR 1498 ng/L (0-10); Troponin 5 2HR Delta -177 ABS# (0-10)
== END 2025-08-23 18:37 | disposition home or self-care (01) ==
PROVIDERS: Emergency Medicine; Emergency Provider Physician Assistant; PCP Nurse Practitioner
DX: M54.6 Pain in thoracic spine (principal); Z79.02 Long term (current) use of antithrombotics/antiplatelets; Z79.82 Long term (current) use of aspirin; F17.210 Nicotine dependence, cigarettes, uncomplicated; I10 Essential (primary) hypertension
CPT/HCPCS: 36415; 72072; 80053; 83880; 84484; 85025; 93005; 96374; 96375; 99285; J1885; J2360

== ENCOUNTER → 2025-08-26 11:06 | Outpatient (BNVA) | payer MEDICAID, SELFPAY | PROVIDERS: PCP Nurse Practitioner; Visit Provider Internal Medicine Cardiovascular Disease | DX: I25.10 Atherosclerotic heart disease of native coronary artery without angina pectoris (principal); I11.0 Hypertensive heart disease with heart failure; I50.22 Chronic systolic (congestive) heart failure; Z95.5 Presence of coronary angioplasty implant and graft; Z86.73 Personal history of transient ischemic attack (TIA), and cerebral infarction without residual deficits; Z79.02 Long term (current) use of antithrombotics/antiplatelets; Z79.82 Long term (current) use of aspirin; Z87.891 Personal history of nicotine dependence; I25.2 Old myocardial infarction | CPT/HCPCS: 99214 ==

== ENCOUNTER 2025-08-26 23:02 | Observation (INO) | payer SELFPAY ==
[2025-08-26 23:05] VITALS: BP 111/75; PULSE 95; RESP 18; TEMP 36.7; O2SAT 95; BMI 30.9
[2025-08-26 23:48] VITALS: BP 123/82; PULSE 87; RESP 20; O2SAT 96
--- NOTE | 2025-08-26 23:48 | ECG_ITS ---
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 Measurements Intervals [place] Rate: 82 P: -13 NE: 167 QRS: 11 QRSD: 103 T: 116 QT: 403 QTc: 473 Interpretive Statements SINUS RHYTHM SEPTAL MYOCARDIAL INFARCTION , PROBABLY RECENT [40+ ms Q WAVE IN V1/V2] ACUTE MD INTERPRETATION BASED ON A DEFAULT AGE OF 40 YEARS Compared to ECG 08/23/2025 16:48:53 Myocardial infarct finding now present Intraventricular conduction delay no longer present T-wave abnormality no longer present Electronically Signed On 08-27-2025 15:39:14 CDT by Bianca Hubbard M.D. [id number]
--- NOTE | 2025-08-26 23:48 | XRR_ITS ---
PROCEDURE INFORMATION: Exam: XR Chest Exam date and time: 08/26/2025 11:54 PM Age: 60 years old Clinical indication: Pain; Chest pressure; Prior surgery; Surgery date: Post-operative (0-2 days); Surgery type: Coronary stent; Additional info: Upper abd pain/cp TECHNIQUE: Imaging protocol: Radiologic exam of the chest. Views: 1 view. COMPARISON: CR XR chest 1V portable [id number] 08/14/2025 10:09 AM FINDINGS: Lungs: Unremarkable. No consolidation. Pleural spaces: Unremarkable. No pleural effusion. No pneumothorax. Heart/Mediastinum: Mediastinal contour is measure at the upper limits of normal, which may be artifactual given AP projection. CT chest with contrast can be obtained if clinical concern for acute aortic pathology is present. The heart is normal in size. Bones/joints: Unremarkable. XR/XR chest 1V portable [id number] IMPRESSION: Mediastinal contour is measure at the upper limits of normal, which may be artifactual given AP projection. CT chest with contrast can be obtained if clinical concern for acute aortic pathology is present. Otherwise, no acute pulmonary process.
[2025-08-27] VITALS (21 sets, daily range): BP systolic 103–187; BP diastolic 65–127; PULSE 64–108; RESP 16–30; TEMP 35.9–36.8; O2SAT 92–99; BMI 31.9
[2025-08-27] LABS: Glucose Urine UA Negative (Normal); Nitrate Urine Negative (Negative)
[2025-08-27 00:02] LABS: Specific Gravity, Urine 1.034 (1.005-1.030)
[2025-08-27 00:11] LABS: Hematocrit 34.2 % (36-47); Hemoglobin 11.50 g/dL (11.27-16.99); Mean Corpuscular HGB Conc 33.6 g/dL (30-55); Mean Corpuscular Hemoglobin 29.0 pg (27-33); Mean Corpuscular Volume 86.1 fl (85-98); Nucleated Red Blood Cells % 0 %; Platelet Count 538 10^3/cmm (157-399); Red Blood Count 3.97 10^6/uL (3.85-5.65); White Blood Count 6.57 10^3/uL (3.29-11.43)
[2025-08-27 00:26] LABS: Add Urine Microscopic? YES; UA Manual Slide Review YES; UA Slide Review UA Slide Review Perf
[2025-08-27] MEDS: ondansetron 2 mg/ML SDV 2 mL 4 MG IVP (00:30)
[2025-08-27] MEDS: morphine 4 mg/mL SDV 1 mL IVP (00:31)
--- NOTE | 2025-08-27 00:35 | CTR_ITS ---
PROCEDURE INFORMATION: Exam: CT Abdomen And Pelvis With Contrast Exam date and time: 08/27/2025 1:33 AM Age: 60 years old Clinical indication: Abdominal pain TECHNIQUE: Imaging protocol: Computed tomography of the abdomen and pelvis with contrast. Radiation optimization: All CT scans at this facility use at least one of these dose optimization techniques: automated exposure control; mA and/or kV adjustment per patient size (includes targeted exams where dose is matched to clinical indication); or iterative reconstruction. Contrast material: OMNI 350; Contrast volume: 100 ml; Contrast route: INTRAVENOUS (IV); COMPARISON: CT angio chest w abd pel w con 08/13/2025 3:13 AM RADIATION DOSE METRICS: Total DLP (mGy-cm): 848.83 FINDINGS: Lungs: Dependent atelectasis is noted in the lung bases. Liver: Normal. No mass. Gallbladder and biliary ducts: Normal. No calcified stones. No ductal dilation. Pancreas: Normal. No ductal dilation. Spleen: A splenule is present. The spleen is otherwise normal. Adrenal glands: Normal. No mass. Kidneys and ureters: Subcentimeter hypodensities in the right kidney are too small to accurately characterize, statistically representing simple cysts. Mild/moderate bilateral renal cortical atrophy is noted. Correlate with renal function. Right ureteral urothelial enhancement/thickening is present. No hydronephrosis is present. No hydroureter is present. No solid renal mass. Stomach and bowel: The small bowel is normal. In the right lower quadrant, there is fat stranding and free fluid, some of which measures hemorrhagic and attenuation (series 3, image 61). A small central calcification is noted (series 3, image 63). The appendix is not clearly identified secondary to motion artifact. Suggested normal caliber appendiceal lumen (series 3, image 59). However, the appendiceal tip is not clearly identified and could terminate within the right lower quadrant fluid collection. Fluid extends along the right retroperitoneal space and right paracolic gutter. The colon is otherwise normal. Appendix: See Stomach and bowel finding. Intraperitoneal space: See Stomach and bowel finding. Vasculature: Moderate atherosclerosis of the abdominal aorta and major vessels is branching present. Lymph nodes: Unremarkable. No enlarged lymph nodes. Urinary bladder: Unremarkable as visualized. Reproductive: Additionally, the right ovary/adnexa terminate in the region of the right lower quadrant fluid collection. Normal left adnexa. Bones/joints: Postoperative changes from right total hip arthroplasty are present. Surgical components are well aligned. No acute periprosthetic fracture. No acute complication. Severe left hip joint space narrowing with subchondral sclerosis and osteophyte formation is noted. Soft tissues: Unremarkable. Other findings: THIS REPORT CONTAINS FINDINGS THAT MAY BE CRITICAL TO PATIENT CARE. The findings were verbally communicated via telephone with Marine Ochoa at 2:19 AM CDT on 08/27/2025. The findings were acknowledged and understood. CT/CT abdomen pelvis w con* [id number] IMPRESSION: 1. Indeterminate right lower quadrant fat stranding and fluid collection, some of which measures hemorrhagic and attenuation. Given recent history of cardiac stenting, spontaneous retroperitoneal hemorrhage should be considered. Consider serial monitoring of hemoglobin and hematocrit. If concern for active hemorrhage is present, CT angiography can be obtained. In the absence of elevated white count, ruptured tip appendicitis is considered less likely . Ruptured ovarian cyst could also be considered. 2. Mild/moderate bilateral renal cortical atrophy is noted. Correlate with renal function. 3. Right ureteral urothelial enhancement. Correlate with urinalysis/cytology to exclude UTI. Findings may be reactive to adjacent inflammatory sequela. 4. Severe left hip osteoarthritis. COMMENTS: Consistent with the [place]'s Incidental Findings Committee white paper (J Am Lindsey Radiol 2018): Any incidental renal lesion less than 1 cm or classified as too small to characterize, or any incidental cystic renal lesion characterized as simple-appearing, is likely benign. No follow-up imaging is recommended for these lesions per consensus recommendations based on imaging criteria.
[2025-08-27 00:38] LABS: Alanine Aminotransferase 29 U/L (0-33); Albumin Level 3.9 g/dL (3.5-5.2); Alkaline Phosphatase 241 U/L (35-105); Anion Gap 18.4 (5-19); Aspartate Amino Transferase 32 U/L (0-32); Blood Urea Nitrogen 17 mg/dL (8-23); Calcium 9.5 mg/dL (8.5-10.5); Carbon Dioxide 22 mmol/L (22-29); Chloride 103 mmol/L (98-107); Creatinine Clr Calc Pharmacy 61.8411; Globulin 3.0 g/dL (1.3-4.6); Glucose 124 mg/dL (65-115); Osmolality Calculated 291 mOsm/kg (285-295); Potassium 4.4 mmol/L (3.5-5.1); Sodium 139 mmol/L (136-145); Total Protein 6.9 g/dL (6.6-8.7)
--- NOTE | 2025-08-27 00:59 | W.ED.GENADLT ---
HPI - General Adult General: Chief complaint: Abdominal Pain Stated complaint: Abd Pain, RT side weakness Time Seen by Provider: 08/26/25 23:46 History of Present Illness: 60yo F w/pmhx of HTN, obesity, CAD and recent occlusion of the prox LAD s/p PCI and 3 cardiac stents (presented w/IA on 08/12/25) presents w/cc of abdominal pain. Patient states she's experienced right upper abdomen pain with radiation to the back for the past several days, since Tuesday. She has been feeling nauseated but states she has not vomited. Patient denies any dysuria, hematuria, diarrhea, constipation or blood in stool. Regarding right sided weakness mentioned in the triage note, patient states she feels like her leg has been weak for a long time and has a h/o R hip arthroplasty in 2014; these sx do not involve RUE. She denies VITAL, confusion, new vision change, dysarthria, difficulty w/speech or swallowing, new sensory changes. Of note, she saw Dr. Dougherty on 08/26 in the office with plan: Plan: - start Entresto 24/26mg bid for heart failure - repeat echo in about 3 months -schedule staged PCI (renal function normalized and hemaglobin improved) -continue current medications Of note, patient's course was complicated by retroperitoneal hemorrhage on the R side, presumably to recent cath, aspiration pna treated w/5d of abx, and head MRI showing several tiny foci of diffusion restriction; patient was initiated on DAPT and medically optimized for stroke prevention and CAD. Related Data Previous Rx's ?Medication ?Instructions ?Recorded amlodipine 5 mg tablet 5 mg PO DAILY #30 tabs 08/17/25 aspirin 81 mg tablet,delayed 81 mg PO DAILY #30 tabs 08/17/25 release atorvastatin 40 mg tablet 80 mg (2 x 40 mg) PO BEDTIME #30 08/17/25 tabs carvedilol 12.5 mg tablet 12.5 mg PO BID #60 tabs 08/17/25 clopidogrel 75 mg tablet 75 mg PO DAILY #30 tabs 08/17/25 nitroglycerin 0.4 mg sublingual 0.4 mg sublingual Q5M PRN Chest 08/17/25 tablet Pain #30 tabs cyclobenzaprine 10 mg tablet 10 mg PO TID #14 tabs 10/17/25 sacubitril 24 mg-valsartan 26 mg 1 tab PO BID #180 tabs 08/26/25 tablet (Entresto) Allergies Allergy/AdvReac Type Severity Reaction Status Date / Time Pork/Porcine Containing Allergy ADR-Diarrhe Verified 08/26/25 11:13 Products a [facility] ED PFSH: Medical History (Updated 08/27/25 @ 05:28 by Marine Ochoa MD) Long QT syndrome Bronchitis Hypertension Surgical History (Updated 08/26/25 @ 12:33 by Matti Dougherty MD) History of right hip replacement H/O tubal ligation Family History Mother Hypertension Social History Smoking and tobacco/nicotine status: former use of tobacco/nicotine Physical Exam Narrative: EXAM NARRATIVE: Vital signs were reviewed. Patient is alert and oriented. Patient is breathing comfortably, no increased WOB or accessory muscle use. SpO2 is above 95% on RA. Patient has clear lungs b/l, no rhonchi, wheezing or crackles. No hypotension or tachycardia. Abdomen is soft, nondistended but tender in the RLQ and low abdomen. Patient is moving all extremities, no deformity or gross injury. No lower extremity asymmetry. PERRL, EOMI, no facial asymmetry, no confusion, no dysarthria, does not appear to have new focal weakness or sensory change. Course Vital Signs: Vital signs: Vital Signs Temperature 98.0 F 08/26/25 23:05 Pulse Rate 79 08/27/25 03:30 Respiratory Rate 17 08/27/25 03:30 Blood Pressure 129/90 08/27/25 03:30 Pulse Oximetry 94 08/27/25 03:30 Oxygen Delivery Me thod Room Air 08/27/25 03:30 MDM - General Adult Medical Decision Making 60yo F w/cc of abdominal pain w/radiation to back since Tuesday. She does not have new chest pain or diaphoresis but is complaining of upper abdomen pain and subjective shortness of breath. She's not been febrile. She does not appear to have new neurologic deficits. Differential diagnosis includes but is not limited to, pneumonia, pleural effusion, pneumothorax, cholecystitis, pancreatitis, appendicitis, gastroenteritis, worsening retroperitoneal hemorrhage, urinary tract infection, nephrolithiasis, ACS, other. On exam patient is hemodynamically stable. Patient was evaluated with CBC, CMP, troponin, UA, CXR, CT of the abdomen pelvis with IV contrast. Patient was treated with IV morphine and IV Zofran. Patient is afebrile and has a normal white blood cell count. Patient's H/H is stable from previous. Patient has a mildly elevated creatinine but this is chronic. She does not have any actionable electrolyte abnormalities and has normal liver function, lipase. UA is not consistent w/infection. Patient does have an elevated baseline troponin with a delta of 76. She has had a recent IA and it downtrending would be expected. She had 3 ekgs done, all similar in appearance, Q waves thought to be due to recent IA. However, morphology of V2 in all EKGs is changed from EKG on 08/23 and may be consistent w/Ronnie's. Discussed w/Dr. Santos who does not feel she needs emergent cardiac angiography but may benefit from observation. Lab Data 08/27/25 00:00 08/27/25 00:00 Radiology Impressions Chest X-Ray 08/26/25 23:48 IMPRESSION: Mediastinal contour is measure at the upper limits of normal, which may be artifactual given AP projection. CT chest with contrast can be obtained if clinical concern for acute aortic pathology is present. Otherwise, no acute pulmonary process. Abdomen/Pelvis CT 08/27/25 00:35 IMPRESSION: 1. Indeterminate right lower quadrant fat stranding and fluid collection, some of which measures hemorrhagic and attenuation. Given recent history of cardiac stenting, spontaneous retroperitoneal hemorrhage should be considered. Consider serial monitoring of hemoglobin and hematocrit. If concern for active hemorrhage is present, CT angiography can be obtained. In the absence of elevated white count, ruptured tip appendicitis is considered less likely . Ruptured ovarian cyst could also be considered. 2. Mild/moderate bilateral renal cortical atrophy is noted. Correlate with renal function. 3. Right ureteral urothelial enhancement. Correlate with urinalysis/cytology to exclude UTI. Findings may be reactive to adjacent inflammatory sequela. 4. Severe left hip osteoarthritis. COMMENTS: Consistent with the [employer]'s Incidental Findings Committee white paper (J Am Lindsey Radiol 2018): Any incidental renal lesion less than 1 cm or classified as too small to characterize, or any incidental cystic renal lesion characterized as simple-appearing, is likely benign. No follow-up imaging is recommended for these lesions per consensus recommendations based on imaging criteria. ADDENDUM: 08/27/25 0306 Addendum: This addendum is to address updated findings. The right lower quadrant fluid collection has decreased in size with comparison to the prior examination dated 08/13/2025, consistent with improving/resolving retroperitoneal hemorrhage. The findings were verbally communicated via telephone conference with Marine Ochoa at 3:04 AM CDT on 08/27/2025. The findings were acknowledged and understood. Laboratory Results WBC 6.57 10^3/uL (3.29-11.43) 08/27/25 00:00 RBC 3.97 10^6/uL (3.85-5.65) 08/27/25 00:00 Hgb 11.50 g/dL (11.27-16.99) 08/27/25 00:00 Hct 34.2 % (36-47) L 08/27/25 00:00 MCV 86.1 fl (85-98) 08/27/25 00:00 MCH 29.0 pg (27-33) 08/27/25 00:00 MCHC 33.6 g/dL (30-55) 08/27/25 00:00 RDW 13.8 % (12.1-15.1) 08/27/25 00:00 Plt Count 538 10^3/cmm (157-399) H 08/27/25 00:00 MPV 8.9 fL (7.4-10.4) 08/27/25 00:00 Neut % (Auto) 67.6 % 08/27/25 00:00 Lymph % (Auto) 18.7 % 08/27/25 00:00 Sibley % (Auto) 7.2 % 08/27/25 00:00 Eos % (Auto) 4.6 % 08/27/25 00:00 Baso % (Auto) 1.4 % 08/27/25 00:00 Neut # (Auto) 4.45 10^3/uL (1.8-7.7) 08/27/25 00:00 Lymph # (Auto) 1.2 10^3/uL (0.8-4.8) 08/27/25 00:00 Sibley # (Auto) 0.5 10^3/uL (0.2-0.9) 08/27/25 00:00 Eos # (Auto) 0.3 10^3/uL (0.0-0.8) 08/27/25 00:00 Baso # (Auto) 0.1 10^3/uL (0.0-0.1) 08/27/25 00:00 Nucleated RBC % (auto) 0 % 08/27/25 00:00 Nucleated RBCs # 0.0 /100WBC 08/27/25 00:00 Sodium 139 mmol/L (136-145) 08/27/25 00:00 Potassium 4.4 mmol/L (3.5-5.1) 08/27/25 00:00 Chloride 103 mmol/L (98-107) 08/27/25 00:00 Carbon Dioxide 22 mmol/L (22-29) 08/27/25 00:00 Anion Gap 18.4 (5-19) 08/27/25 00:00 BUN 17 mg/dL (8-23) 08/27/25 00:00 Creatinine 1.0 mg/dL (0.5-0.9) H 08/27/25 00:00 GFR Calculation 56.6 mL/min (90-130) L 08/27/25 00:00 Glucose 124 mg/dL (65-115) H 08/27/25 00:00 Calculated Osmolality 291 mOsm/kg (285-295) 08/27/25 00:00 Calcium 9.5 mg/dL (8.5-10.5) 08/27/25 00:00 Total Bilirubin 1.2 mg/dL (0.15-1.2) 08/27/25 00:00 AST 32 U/L (0-32) 08/27/25 00:00 ALT 29 U/L (0-33) 08/27/25 00:00 Alkaline Phosphatase 241 U/L (35-105) H 08/27/25 00:00 Troponin T Baseline 652 ng/L (0-10) H* 08/27/25 00:00 Troponin T 120 Minute 575.7 ng/L (0-10) H 08/27/25 03:53 Delta Troponin T -76.3 ABS# (0-10) L 08/27/25 03:53 Total Protein 6.9 g/dL (6.6-8.7) 08/27/25 00:00 Albumin 3.9 g/dL (3.5-5.2) 08/27/25 00:00 Globulin 3.0 g/dL (1.3-4.6) 08/27/25 00:00 Lipase 35 U/L (13-60) 08/27/25 00:00 Urine Color Dark yellow (Yellow) A 08/27/25 01: Urine Appearance Clear (CLEAR) 08/27/25 01: Urine pH 5.5 (5-7) 08/27/25 01:28 Ur Specific [place] 1.030 (1.005-1.030) 08/27/25 01: Urine Protein 1+ (Negative) A 08/27/25: Urine Glucose (UA) Negative (Normal) 08/27/25: Urine Ketones Trace (Negative) 08/27/25 01: Urine Blood Negative (Negative) 08/27/25 01: Urine Nitrate Negative (Negative) 08/27/25 01: Urine Bilirubin Negative (Negative) 08/27/25 01: Urine Urobilinogen 1.0 mg/dL (Negative) 08/27/25 01:28 Ur Leukocyte Esterase Trace (Negative) A 08/27/25 01: Urine RBC 0-4 /hpf (0-2) H 08/27/25 01:28 Urine WBC 5-10 /hpf (0-5) H 08/27/25 01:28 Ur Squamous Epith Cells 5-10 /hpf (0-5) H 08/27/25 01:28 Amorphous Sediment Not Reportable 08/27/25 01: Urine Bacteria Trace /hpf (NONE) 08/27/25 01: Urine Mucus 1+ /hpf 08/27/25 01:28 All radiology interpretation(s) finalized by discharge Discharge Plan Discharge Patient Disposition: Placed in Observation Clinical Impression: Upper abdominal pain, Recent heart attack, Elevated troponin, Acute dyspnea, Retroperitoneal hemorrhage Coding Level of Care Code ED Hands And Dial Inspector for Jagruti Garsia
[2025-08-27 01:09] LABS: Troponin(5th) Baseline 652 ng/L (0-10)
--- NOTE | 2025-08-27 01:14 | ECG_ITS ---
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 Measurements Intervals [place] Rate: 77 P: -10 DC: 164 QRS: 2 QRSD: 102 T: 112 QT: 403 QTc: 458 Interpretive Statements SINUS RHYTHM SEPTAL MYOCARDIAL INFARCTION , PROBABLY RECENT [40+ ms Q WAVE IN V1/V2] ACUTE IA T wave changes suggesting high lateral wall ischemia Compared to ECG 08/23/2025 16:48:53 Myocardial infarct finding now present Intraventricular conduction delay no longer present T-wave abnormality no longer present Electronically Signed On 08-27-2025 15:39:07 CDT by Bianca Hubbard M.D. [email or web address] [email or web address]
[2025-08-27 01:23] LABS: Lipase 35 U/L (13-60)
[2025-08-27 01:33] LABS: Glucose Urine UA Negative (Normal); Nitrate Urine Negative (Negative); Specific Gravity, Urine 1.030 (1.005-1.030)
[2025-08-27] MEDS: iohexol 350 mg/mL 500 mL Btl (per mL) IV (01:35)
--- NOTE | 2025-08-27 01:48 | ECG_ITS ---
[facility] Test Date: 2025-08-27 Pat Name: Samuel Buck Department: Room: Gender: Female Analysis Internship: : 1965 Requested By: Marine Ochoa Order Number: [id number] Jose MD: Bianca Hubbard M.D. Measurements Intervals [place] Rate: 74 P: 1 OK: 175 QRS: -3 QRSD: 100 T: 108 QT: 411 QTc: 457 Interpretive Statements SINUS RHYTHM SEPTAL MYOCARDIAL INFARCTION , PROBABLY RECENT [40+ ms Q WAVE IN V1/V2] ACUTE NE Compared to ECG 08/27/2025 00:06:18 No significant changes Electronically Signed On 08-27-2025 19:38:38 CDT by Bianca Hubbard M.D. [email or web address]
[2025-08-27 02:00] LABS: Add Urine Microscopic? YES; UA Slide Review UA Slide Review Perf
[2025-08-27 04:29] LABS: Troponin 5 2HR 575.7 ng/L (0-10); Troponin 5 2HR Delta -76.3 ABS# (0-10)
--- NOTE | 2025-08-27 05:48 | ECG_ITS ---
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 Measurements Intervals [place] Rate: 66 P: -10 GA: 175 QRS: 0 QRSD: 105 T: 110 QT: 433 QTc: 456 Interpretive Statements SINUS RHYTHM SEPTAL MYOCARDIAL INFARCTION , PROBABLY RECENT [40+ ms Q WAVE IN V1/V2] ACUTE AL Compared to ECG 08/27/2025 01:20:28 No significant changes Electronically Signed On 08-27-2025 19:38:29 CDT by Bianca Hubbard M.D. [email or web address]
--- NOTE | 2025-08-27 06:00 | PM.HP ---
Providers/Chief Complaint Primary Care Provider: TARA Martinez Chief Complaint: Abd Pain, RT side weakness History of Present Illness Samuel Buck is a 60 year old female woman with a recent hospitalization for coronary artery disease including intervention on the left anterior descending (LAD) artery with three stents and balloon angioplasty, complicated by retroperitoneal hemorrhage/hematoma and acute blood loss anemia requiring transfusion. During that hospitalization she was treated for acute congestive heart failure (CHF) with intravenous (IV) furosemide (Lasix); heart failure with reduced ejection fraction (HFrEF) was noted with ejection fraction (EF) initially 35?40% and improved to approximately 40?45% on limited repeat echocardiogram after intervention. She also had acute metabolic encephalopathy; brain MRI showed several tiny foci of diffusion restriction that could represent small acute ischemic changes. She completed five days of antibiotics for aspiration pneumonia and was continued on aspirin and clopidogrel (Plavix) and started on a statin. She presented to the emergency department last night with pain described as back pain on the right side (initially reported as abdominal pain). CT pelvis showed an improving retroperitoneal hematoma. There was some right ureteral urothelial enhancement; correlation with urinalysis/cytology was recommended to exclude concerning findings, which may be reactive to adjacent inflammatory sequelae. Severe arthritis of the left hip was incidentally noted. Electrocardiogram (ECG) showed ST changes in V2 discussed with cardiology, without need for current intervention. Troponin was elevated at 652 ng/L with downtrend to 575 ng/L at two hours. No fever and no leukocytosis were reported. Liver and gallbladder laboratory values were described as looking okay, with no suspicion for bile duct issues. She denies fever, chills, nausea, vomiting, diarrhea, rashes, leg swelling. Denies sleep apnea; no use of CPAP or home oxygen. Review of Systems Const: Denies: fever(s), chills, body aches or malaise ENMT: Denies: throat pain Card: Denies: chest pain, edema, pre-syncope or dyspnea on exertion Resp: Denies: dyspnea, productive cough, change in phlegm color or hemoptysis GI: Reports: abdominal pain (RUQ); Denies: nausea, vomiting, diarrhea, constipation, hematochezia or melena : Denies: flank pain, urinary frequency or hematuria Musc: Reports: back pain (R mid back); Denies: joint swelling or joint redness Skin/Breast: Denies: rash or new lesions Neuro: Denies: headache(s) or confusion Medications/Allergies Home Medications ?Medication ?Instructions ?Recorded ?Confirmed ?Last Taken ?Type amlodipine 5 mg tablet 5 mg PO DAILY #30 tabs 08/17/25 08/26/25 Unknown Rx aspirin 81 mg tablet,delayed 81 mg PO DAILY #30 tabs 08/17/25 08/26/25 Unknown Rx release atorvastatin 40 mg tablet 80 mg (2 x 40 mg) PO BEDTIME #30 08/17/25 08/26/25 Unknown Rx tabs carvedilol 12.5 mg tablet 12.5 mg PO BID #60 tabs 08/17/25 08/26/25 Unknown Rx clopidogrel 75 mg tablet 75 mg PO DAILY #30 tabs 08/17/25 08/26/25 Unknown Rx nitroglycerin 0.4 mg sublingual 0.4 mg sublingual Q5M PRN Chest 08/17/25 08/26/25 Unknown Rx tablet Pain #30 tabs cyclobenzaprine 10 mg tablet 10 mg PO TID #14 tabs 08/23/25 08/26/25 Unknown Rx sacubitril 24 mg-valsartan 26 mg 1 tab PO BID #180 tabs 08/26/25 08/26/25 Unknown Rx tablet (Entresto) Allergies Allergy/AdvReac Type Severity Reaction Status Date / Time Pork/Porcine Containing Allergy ADR-Diarrhe Verified 08/26/25 11:13 Products a PFSH Acute PFSH: Medical History Retroperitoneal hemorrhage Retroperitoneal hematoma Chronic heart failure with mildly reduced ejection fraction (HFmrEF) CAD (coronary artery disease) Long QT syndrome Bronchitis Hypertension Surgical History History of right hip replacement H/O tubal ligation Family History Mother Hypertension Social History Smoking and tobacco/nicotine status: former use of tobacco/nicotine Vitals/I&O/Wt Last Vital Signs Temp 98.0 F 08/26/25 23:05 Pulse 64 08/27/25 05:30 Resp 18 08/27/25 05:30 BP 127/78 08/27/25 05:30 Pulse Ox 93 08/27/25 05:30 O2 Del Method Room Air 08/27/25 05:00 Weight last 48 hrs Weight 81.647 kg Physical Exam Narrative: Accompanied by her . Const: COMMON NORMALS: patient oriented x3 and alert GENERAL APPEARANCE: cooperative NUTRITIONAL APPEARANCE: obese ORIENTATION/CONSCIOUSNESS: Yes awake and Yes Other orientation findings (Mildly somnolent, but wakes up to voice.) HENMT: COMMON NORMALS: oropharynx normal Neck/C-Spine: COMMON NORMALS: no JVD Resp: COMMON NORMALS: normal respiratory effort and clear to auscultation bilaterally AUSCULTATION: clear to auscultation bilaterally Cardio: COMMON NORMALS: no JVD, regular rhythm, S1 normal heart sound present, S2 normal heart sound present and No murmurs present (Cardio) RHYTHM: regular rhythm HEART SOUNDS: S1 normal heart sound present and S2 normal heart sound present GI: COMMON NORMALS: Normal to inspection, nondistended, normoactive bowel sounds present, Soft to palpation and non-tender PALPATION: Yes Soft to palpation Extremity: COMMON NORMALS: no joint enlargement and no pedal edema Neuro: COMMON NORMALS: patient oriented x3 and moves all extremities SENSORIUM/ORIENTATION: Yes alert Skin: COMMON NORMALS: no rashes or lesions noted GENERAL SKIN EXAM: no rashes or lesions noted Data 08/27/25 00:00 08/27/25 00:00 A&P Assessment and plan 1. Elevated troponin: Troponin elevated at 652 ng/L with downtrend to 575 ng/L at two hours; ECG ST changes in V2 discussed with cardiology, no immediate intervention needed. With recent IA, cardiac arrest, complicated hospital course, persistent elevation of troponin, although not unanticipated, but with presentation with thoracic back/chest pain, although atypical, on the right side, with some EKG changes in V2, although discussed by ED provider with cardiology, also with plans for staged procedure with further unaddressed coronary disease, request for additional short-term observation in the hospital to confirm 6-hour troponin, confirm no further deterioration in condition with subsequent discharge home is requested by ED provider. Reviewed ED provider note, discussed with ED provider. - Repeat 6-hour troponin and EKG to complete series. Monitor on telemetry in the meantime. - If no further changes and continued decrease in troponin, consider discharge with cardiology follow-up (if no signs of developing infection or new concerning symptoms). - Continue DAPT, statin. 2. Back pain, thoracic: Back pain on the right side; CT pelvis shows improving hematoma; no fever or leukocytosis reported. Reviewed vitals, CBC, CMP, CT abdomen pelvis, UA, noted some right ureter involvement, possibly responsible for the symptoms, possibly inflammation secondary to adjacent process, versus urinary tract infection with noted 5-10 WBC and urine. Requesting urine culture. Empiric ceftriaxone for now. Without signs of sepsis at this time. Reviewed prior urine culture. - Continue monitoring on telemetry. - Complete cardiac troponin and ECG studies (pending reassessment). - Acetaminophen as needed for pain. Plan: Coronary artery disease status post recent LAD stenting : Recent intervention on LAD with three stents and balloon angioplasty; residual stenosis with staged procedure planned. - Monitor on telemetry. - Cardiology to be involved for follow-up post-discharge if stable. Retroperitoneal hematoma (improving on CT) : CT pelvis shows improving hematoma; no current signs of infection/sepsis. Heart failure with reduced ejection fraction (HFrEF) : History of CHF treated with IV furosemide; EF improved from 35?40% to approximately 40?45%. Not a current newly in exacerbation. Possible urinary tract infection vs reactive ureteral change : Right ureteral urothelial enhancement on CT; differential includes mild UTI versus reactive change. - Treat empirically with ceftriaxone for now. - Pending urine culture results. Recent altered mental status, CVA: She is awake and alert, answering appropriately. No further mental status changes. Recent aspiration pneumonia: She denies any shortness of breath. Saturating well on room air. No respiratory complaints. Follow-up : Pending reassessment by day team; potential discharge if stable and troponin downtrends. - If stable with expected troponin decrease and no new concerns, consider discharge with cardiology follow-up. Requesting to confirm home medications. Please review once available. PDMP PDMP Reviewed: Not Reviewed Attestations Medical Necessity Statement*: Place in observation for further cardiac reassessment prior to discharge home given recent STEMI, cardiac arrest, further coronary disease pending staged procedure, possible secondary ureteral inflammation versus ascending UTI. and High MDM includes amount and/or complexity of data reviewed/ordered [ previous or external records, resulted lab(s)/test(s), ordered lab(s)/test(s) and other healthcare professional discussion] as documented Diagnoses Elevated troponin R79.89 Back pain, thoracic M54.6
[2025-08-27] MEDS: cefTRIAXone 1,000 mg SDV 1000 MG IVP (08:11)
[2025-08-27 08:17] LABS: Troponin 5 6HR 555.1 ng/L (0-10); Troponin 5 6HR Delta -96.9 ng/L (0-12)
--- NOTE | 2025-08-27 08:34 | USCV_ITS ---
Samuel Buck Age: 60 Gender: F : 1965 Exam Date: 08/27/2025 10:48 Ordering Phys: Jorge Hunter MD Technologist: CRISTIANO Exam Location: [facility] [place] Indication: EF and wall motion BP: 113 / 78 HR: Rhythm: Sinus Technical Quality: Adequate MEASUREMENTS (Male / Female) Normal Values 2D ECHO LV Diastolic Diameter PLAX 5.9 cm 4.2 - 5.9 / 3.9 - 5.3 cm IVS Diastolic Thickness 1.0 cm 0.6 - 1.0 / 0.6 - 0.9 cm IVS Systolic Thickness 1.2 cm LVPW Diastolic Thickness 1.1 cm 0.6 - 1.0 / 0.6 - 0.9 cm LVPW Systolic Thickness 1.2 cm LVOT Diameter 2.0 cm LV Ejection Fraction 2D Teich 37.4 % LV Ejection Fraction MOD 4C 45.7 % LV Ejection Fraction MOD 2C 50.3 % LV Ejection Fraction 2C AL 53.8 % LA Diameter 2.7 cm RA Systolic Volume 4C AL 23.1 ml RA Systolic Volume 4C MOD 22.7 ml LA Sys Volume AL 29.4 cm cubed LA Sys Volume Index AL 14.8 cm cubed/m squared Aorta at Sinotubular Diameter 2.9 cm M-MODE LA Ao Ratio MM 1.0 AV Cusp Separation MM 1.6 cm FINDINGS Left Ventricle Mild diffuse hypokinesis of the left ventricle with an ejection fraction of 45 to 50%. Mildly dilated LV cavity Right Ventricle Normal LV size and ejection fraction. Right Atrium Possibly of normal size Left Atrium Normal left atrial size. IA Septum Appears to be intact Mitral Valve No gross abnormalities noted Aortic Valve No gross abnormalities noted Tricuspid Valve Tricuspid valve not well visualized. Pulmonic Valve Pulmonic valve not well visualized. Pericardium No pericardial effusion. Aorta Normal aortic annulus size. IVC Inferior vena cava not visualized. CONCLUSIONS Mild diffuse hypokinesis of the left ventricle with an ejection fraction of 45 to 50%. Mildly dilated LV cavity. Possibly normal atrial sizes. There is no pericardial effusion. There are no intracardiac masses. Compared to the study from 08/16/2025, there may be a slight improvement in the LV ejection fraction Dr Bianca Hubbard MD [facility] (Electronically Signed) Final Date: 27 August 2025 14:03 S
--- NOTE | 2025-08-27 08:35 | US_ITS ---
WS: [id number] RENAL ULTRASOUND HISTORY: [place], retroperitneal hematoma, COMPARISON: None available. TECHNIQUE: 2-D and color Doppler imaging of the kidney submitted. Right kidney: 7.6 cm x 3.6 cm x 4.1 cm. Cortex: 1.0 cm Normal echogenicity with no hydronephrosis or mass. Left kidney: 9.7 cm x 4.5 cm x 4.4 cm. Cortex: 1.6 cm Normal echogenicity with no hydronephrosis or mass. Aorta: Normal. Urinary Bladder: Normal distention. US/US renal BI* [id number] IMPRESSION: 1. Mild atrophy RIGHT kidney with diffuse cortical thinning. 2. No renal obstruction.
--- NOTE | 2025-08-27 09:28 | PC.NURSE ---
received from er in to room 102 at 0730.report received.sr on monitor.denies chest pain.oriented to room environment.instructed to notify staff for any pain,sob,or for any concerns at all.pt verb understanding of instructions
--- NOTE | 2025-08-27 09:46 | PC.CHAP ---
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 [] Patient/Family/Request visit [] Outpatient visit [] Follow-up visit [] Physician referral [] Code/Alert [x] Routine visit [] Staff referral [] Actively dying [] Patient sleeping [] Family support [] [] Out of room [] Palliative care [] [] Receiving care in room [] Pre-surgical visit [] Trauma [] Long length of stay [] ICU visit [] Other: Relational/Emotional Strength [x] Patient feels connected with others/family/visitors/staff [] Distress [] Loneliness/isolation [] Abandonment Spirituality of Patient [x] Person of Betsy [] Attends Bahai of their Betsy [x] Believes in Prayer [] Reads Bible or Christian materials [] There are Spiritual issues to be addressed Business Intelligence Manager Interventions [x] Prayer [x] Active listening [] Non-anxious presence [x] Spiritual/emotional support [] Crisis/trauma care [] Spiritual counseling [] Bereavement support [] Provided bereavement packet [] Provided Bible/devotional materials [] Provided toy/stuffed animal, coloring book to patient or family member [] Provided Communion [] Anointing/[place] [] Salvation [x] Completed spiritual assessment [] Other: Impact on Illness or Injury [] Angry [] Fearful [] Anxious [] Often cries [] Exhaustion [] Unable to work [] Unable to attend faith [] Unable to walk/stand [] Unable to read [] Unable to drive [] Unable to eat/drink [] Unable to sleep [] Unable to be with family [] Patient intubated [] Other: Summary Time spent with patient 5 min
[2025-08-27 11:56] LABS: Procalcitonin 0.09 ng/mL (0-0.5)
[2025-08-27] MEDS: polyethylene glycol 3350 Pkt 17 gm PO ×2 (13:00→16:56)
[2025-08-27 13:46] LABS: Troponin T (5th) Once 462 ng/L (0-10)
--- NOTE | 2025-08-27 16:06 | P.PN_ITS ---
Vitals/I&O/Wt Last Vital Signs Temp 96.9 F L 08/27/25 11:13 Pulse 80 08/27/25 11:13 Resp 20 H 08/27/25 11:13 BP 124/65 08/27/25 11:13 Pulse Ox 99 08/27/25 11:13 O2 Del Method Room Air 08/27/25 11:13 08/27/25 08/27/25 08/27/25 06:59 14:59 22:59 Intake Total 240 / 240 Balance 240 / 240 Weight last 48 hrs Weight 84.5 kg Weight 81.647 kg Physical Exam 2 Const: COMMON NORMALS: no acute distress and patient oriented x3 Resp: COMMON NORMALS: normal respiratory effort, No retractions, No use of accessory muscles and clear to auscultation bilaterally AUSCULTATION: clear to auscultation bilaterally Cardio: COMMON NORMALS: regular rate, regular rhythm, S1 normal heart sound present and S2 normal heart sound present RATE: regular rate RHYTHM: r egular rhythm HEART SOUNDS: S1 normal heart sound present and S2 normal heart sound present GI: COMMON NORMALS: Normal to inspection, nondistended, normoactive bowel sounds present and non-tender Extremity: COMMON NORMALS: no calf tenderness and no pedal edema Neuro: COMMON NORMALS: patient oriented x3 Psych: COMMON NORMALS: mental status grossly normal Data 08/27/25 00:00 08/27/25 00:00 A&P Assessment and plan 1. Elevated troponin: 2. Back pain, thoracic: Plan: NSTEMI, elevated troponins -Cardiac echocardiogram - Serial EKGs, serial troponins, telemetry monitoring - Continue aspirin, statin, Plavix - CONCLUSIONS Mild diffuse hypokinesis of the left ventricle with an ejection fraction of 45 to 50%. Mildly dilated LV cavity. Possibly normal atrial sizes. There is no pericardial effusion. There are no intracardiac masses. Compared to the study from 08/16/2025, there may be a slight improvement in the LV ejection fraction - Will consult cardiology Coronary artery disease status post cardiac stenting Conclusions 1. Total thrombotic occlusion of proximal LAD S/p PCI with 3 stents. Severe mid RCA stenosis. Reviewed will perform staged PCI. Also has mid to distal circumflex artery with severe stenosis. Plan for staged PCI. 2. Proximal Left Anterior Descending was treated with a Balloon, Balloon, Balloon, and Drug Eluting Stent. 3. Mid Left Anterior Descending was treated with a Drug Eluting Stent, and Drug Eluting Stent. 4. 1st Diagonal was treated with a Balloon. Retroperitoneal hematoma (improving on CT) : CT/CT abdomen pelvis w con* [id number] IMPRESSION: 1. Indeterminate right lower quadrant fat stranding and fluid collection, some of which measures hemorrhagic and attenuation. Given recent history of cardiac stenting, spontaneous retroperitoneal hemorrhage should be considered. Consider serial monitoring of hemoglobin and hematocrit. If concern for active hemorrhage is present, CT angiography can be obtained. In the absence of elevated white count, ruptured tip appendicitis is considered less likely . Ruptured ovarian cyst could also be considered. 2. Mild/moderate bilateral renal cortical atrophy is noted. Correlate with renal function. 3. Right ureteral urothelial enhancement. Correlate with urinalysis/cytology to exclude UTI. Findings may be reactive to adjacent inflammatory sequela. 4. Severe left hip osteoarthritis. CT/CT abdomen pelvis w con* [id number] Addendum: This addendum is to address updated findings. The right lower quadrant fluid collection has decreased in size with comparison to the prior examination dated 08/13/2025, consistent with improving/resolving retroperitoneal hemorrhage. -Hemodynamics stable, hemoglobin stable Plan -Monitor hemodynamics -Monitor hemoglobin Heart failure with reduced ejection fraction (HFrEF) : - No evidence of fluid overload monitor Possible urinary tract infection vs reactive ureteral change : Right ureteral urothelial enhancement on CT; differential includes mild UTI versus reactive change. - Reviewed Rocephin. - Pending urine culture results altered mental status, CVA: Oriented x 3, follow commands Recent aspiration pneumonia: Monitor PDMP PDMP Reviewed: Not Reviewed Attestations 2 Medical Necessity Statement*: Patient requires hospitalization for NSTEMI, retroperitoneal hemorrhage, UTI Diagnoses Elevated troponin R79.89 Back pain, thoracic M54.6
--- NOTE | 2025-08-27 17:40 | PM.CONSULT ---
Providers/Reason For Consult Consulting Physician/Specialty*: BALBIR Hubbard MD/cardiology Reason for Consult*: Patient with elevated troponin T, recent coronary intervention/MRI Requesting Physician: Dr. Hunter Attending Physician: Jorge Hunter MD Primary Care Provider: TARA Martinez History of Present Illness History of Present Illness Samuel Buck is a 60 year old female,, is admitted to hospital through the emergency room where she presented with complaints of back pain and right upper quadrant pain. She had a recent history of recent myocardial infarction with multiple complications. She has an elevated troponin T. Cardiology is consulted for further evaluation and recommendations This patient was admitted to the hospital on the sixth of this month with the features of an acute ST elevation myocardial infarction. Cardiac colorization revealed thrombotic occlusion of the proximal left anterior descending artery. She had a stenting of the proximal and mid LAD with balloon angioplasty of the first diagonal branch. She has high-grade lesions in the circumflex and right coronary artery. Because of her complicated course, it was decided to do staged intervention of these lesions at a later time. This patient is a post [place]. Was complicated with decompensated heart failure, possible mini strokes, metabolic encephalopathy, retroperitoneal hematoma and possible aspiration pneumonia. Retroperitoneal hemorrhage spontaneously resolved. She was treated with IV diuretics and antibiotics. Her overall symptoms significantly improved and was discharged home on the . On the of this month, she was brought to the emergency room. Apparently she had a sudden onset of back pain while she was trying to bend over and case picker something from the floor. Her evaluation in the emergency room was unremarkable. She was given some pain medications and was discharged home. Yesterday evening, she again started having severe pain in the back and also in the right lower thoracic and upper quadrant areas. She seems to have muscle spasms intermittently in this area. Her troponin T was in the 10,000 range on the second day of her hospital admission. It has been gradually coming down since then. On the it was around 1600. The troponin T was around 6 x 50 yesterday and today it is 575. So the levels are appropriately trending down. Her LV ejection fraction was 35 to 40% on the seventh of this month. Today it is around 40 to 45%. She has no chest pain or any unusual shortness of breath. She is mainly complaining of the pain at this point. She has no fever or chills. Review of Systems Narrative: CONSTITUTIONAL: No fever or chills. EYES: No blurring of vision or other visual disturbances lately. ENT: No hoarseness of voice, auditory disturbances or sore throat. CARDIOVASCULAR: As mentioned above. RESPIRATORY: She has some baseline shortness of breath with activities GASTROINTESTINAL: No hematemesis or melena. GENITOURINARY: No dysuria or hematuria. INTEGUMENTARY: No skin rashes or history of skin cancer. NEURO: No transient ischemic attacks or amaurosis. PSYCHIATRIC: No history of psychosis or major depression. HEMATOLOGIC: She required 1 unit of blood transfusion during the last hospital admission. The hemoglobin seems to be stable ENDOCRINE: No history of polyuria or polydipsia. MUSCULOSKELETAL: Back pain as mentioned above ALLERGY/IMMUNOLOGY: As mentioned above. Medications/Allergies Home Medications ?Medication ?Instructions ?Recorded ?Confirmed ?Last Taken ?Type amlodipine 5 mg tablet 5 mg PO DAILY #30 tabs 08/17/25 08/27/25 08/26/25 Rx aspirin 81 mg tablet,delayed 81 mg PO DAILY #30 tabs 08/17/25 08/27/25 08/26/25 Rx release atorvastatin 40 mg tablet 80 mg (2 x 40 mg) PO BEDTIME #30 08/17/25 08/27/25 08/26/25 19:00 Rx tabs carvedilol 12.5 mg tablet 12.5 mg PO BID #60 tabs 08/17/25 08/27/25 08/26/25 Rx clopidogrel 75 mg tablet 75 mg PO DAILY #30 tabs 08/17/25 08/27/25 08/26/25 Rx nitroglycerin 0.4 mg sublingual 0.4 mg sublingual Q5M PRN Chest 08/17/25 08/27/25 Unknown Rx tablet Pain #30 tabs cyclobenzaprine 10 mg tablet 10 mg PO TID #14 tabs 08/23/25 08/27/25 Unknown Rx sacubitril 24 mg-valsartan 26 mg 1 tab PO BID #180 tabs 08/26/25 08/27/25 Unknown Rx tablet (Entresto) albuterol sulfate 90 mcg/actuation See Rx Instructions .Route .COMPLEX 08/27/25 08/27/25 08/26/25 History aerosol inhaler pantoprazole 40 mg tablet,delayed 40 mg PO DAILY 08/27/25 08/27/25 08/26/25 History release Allergies Allergy/AdvReac Type Severity Reaction Status Date / Time Pork/Porcine Containing Allergy ADR-Diarrhe Verified 08/26/25 11:13 Products a Current Medications Generic Name Dose Route Start Last Admin Trade Name Hectorq PRN Reason Stop Dose Admin Aspirin 81 mg 08/27/25 07:43 08/27/25 08:12 Aspirin 81 Mg Ec Tablet PO 81 mg DAILY MILEY Administration Carvedilol 12.5 mg 08/27/25 17:00 08/27/25 16:56 Carvedilol 12.5 Mg Tablet PO 12.5 mg BID MILEY Administration Ceftriaxone Sodium 1,000 mg 08/27/25 06:05 08/27/25 08:11 Ceftriaxone 1,000 Mg Sdv IVP 1,000 mg DAILY MILEY Administration Protocol Clopidogrel Bisulfate 75 mg 08/27/25 07:43 08/27/25 08:12 Clopidogrel 75 Mg Tablet PO 75 mg DAILY MILEY Administration Polyethylene Glycol 17 gm 08/27/25 11:55 08/27/25 16:56 Polyethylene Glycol 3350 Pkt 17 Gm PO 17 gm BID MILEY Administration PFSH Acute PFSH: Medical History Retroperitoneal hemorrhage Retroperitoneal hematoma Chronic heart failure with mildly reduced ejection fraction (HFmrEF) CAD (coronary artery disease) Long QT syndrome Bronchitis Hypertension Surgical History History of right hip replacement H/O tubal ligation Family History Mother Hypertension Social History Smoking and tobacco/nicotine status: former use of tobacco/nicotine Vitals/I&O/Wt Last Vital Signs Temp 96.7 F L 08/27/25 16:00 Pulse 108 H 08/27/25 16:56 Resp 20 H 08/27/25 16:56 BP 187/107 08/27/25 16:56 Pulse Ox 94 08/27/25 16:00 O2 Del Method Room Air 08/27/25 16:00 08/27/25 08/27/25 08/27/25 06:59 14:59 22:59 Intake Total 240 / 240 Balance 240 / 240 Weight last 48 hrs Weight 186 lb 4.65 oz Weight 180 lb Physical Exam Narrative: GENERAL: The patient is alert and oriented times three. Not in any acute distress. Obese HEENT: No significant pallor, icterus or lymphadenopathy.Oral cavity: There are no mucous membrane lesions. NECK: Trachea appears to be central. No masses noted. No JVD or thyromegaly appreciated. RESPIRATORY: Chest is symmetrical. No intercostals muscle retraction or any accessory muscle activation. Has significant Disease tenderness in the lower part of the chest on the right posterior thoracolumbar region. The breath sounds are heard bilaterally. No rales or rhonchi heard. No evidence of any consolidation. BREASTS: Deferred. HEART: The heart sounds are normal. No S3 or S4. No significant murmurs. No pericardial rub ABDOMEN: Obese. Vague tenderness in the right upper quadrant area . : Deferred. RECTAL: Deferred. LYMPHATIC: No lymphadenopathy noted in the neck. EXTREMITIES: No edema or cyanosis. No clubbing. MUSCULOSKELETAL: No acute joint deformities or swelling SKIN: There are no significant rashes or ecchymosis NEUROPSYCHIATRIC: The patient is alert and oriented x3. Appears to be in a good mood. No tremors or rigidity noted. Data 08/27/25 00:00 08/27/25 00:00 Other Labs: Laboratory Last Values WBC 6.57 10^3/uL (3.29-11.43) 08/27/25 00:00 RBC 3.97 10^6/uL (3.85-5.65) 08/27/25 00:00 Hgb 11.50 g/dL (11.27-16.99) 08/27/25 00:00 Hct 34.2 % (36-47) L 08/27/25 00:00 MCV 86.1 fl (85-98) 08/27/25 00:00 MCH 29.0 pg (27-33) 08/27/25 00:00 MCHC 33.6 g/dL (30-55) 08/27/25 00:00 RDW 13.8 % (12.1-15.1) 08/27/25 00:00 Plt Count 538 10^3/cmm (157-399) H 08/27/25 00:00 MPV 8.9 fL (7.4-10.4) 08/27/25 00:00 Neut % (Auto) 67.6 % 08/27/25 00:00 Lymph % (Auto) 18.7 % 08/27/25 00:00 Haakon % (Auto) 7.2 % 08/27/25 00:00 Eos % (Auto) 4.6 % 08/27/25 00:00 Baso % (Auto) 1.4 % 08/27/25 00:00 Neut # (Auto) 4.45 10^3/uL (1.8-7.7) 08/27/25 00:00 Lymph # (Auto) 1.2 10^3/uL (0.8-4.8) 08/27/25 00:00 Haakon # (Auto) 0.5 10^3/uL (0.2-0.9) 08/27/25 00:00 Eos # (Auto) 0.3 10^3/uL (0.0-0.8) 08/27/25 00:00 Baso # (Auto) 0.1 10^3/uL (0.0-0.1) 08/27/25 00:00 Nucleated RBC % (auto) 0 % 08/27/25 00:00 Nucleated RBCs # 0.0 /100WBC 08/27/25 00:00 ESR 30 mm/hr (0-15) H 08/27/25 11:19 Sodium 139 mmol/L (136-145) 08/27/25 00:00 Potassium 4.4 mmol/L (3.5-5.1) 08/27/25 00:00 Chloride 103 mmol/L (98-107) 08/27/25 00:00 Carbon Dioxide 22 mmol/L (22-29) 08/27/25 00:00 Anion Gap 18.4 (5-19) 08/27/25 00:00 BUN 17 mg/dL (8-23) 08/27/25 00:00 Creatinine 1.0 mg/dL (0.5-0.9) H 08/27/25 00:00 GFR Calculation 56.6 mL/min (90-130) L 08/27/25 00:00 Glucose 124 mg/dL (65-115) H 08/27/25 00:00 Calculated Osmolality 291 mOsm/kg (285-295) 08/27/25 00:00 Calcium 9.5 mg/dL (8.5-10.5) 08/27/25 00:00 Total Bilirubin 1.2 mg/dL (0.15-1.2) 08/27/25 00:00 AST 32 U/L (0-32) 08/27/25 00:00 ALT 29 U/L (0-33) 08/27/25 00:00 Alkaline Phosphatase 241 U/L (35-105) H 08/27/25 00:00 Troponin T 5th Gen ng/L 462 ng/L (0-10) H* 08/27/25 12:55 Troponin T Baseline 652 ng/L (0-10) H* 08/27/25 00:00 Troponin T 120 Minute 575.7 ng/L (0-10) H 08/27/25 03:53 Delta Troponin T -76.3 ABS# (0-10) L 08/27/25 03:53 Troponin T Hi Sens 6Hr 555.1 ng/L (0-10) H 08/27/25 07:35 Troponin T Hi Sens 6Hr Delta -96.9 ng/L (0-12) L 08/27/25 07:35 C-Reactive Protein 20.8 mg/L (0.0-4.9) H 08/27/25 11:19 Total Protein 6.9 g/dL (6.6-8.7) 08/27/25 00:00 Albumin 3.9 g/dL (3.5-5.2) 08/27/25 00:00 Globulin 3.0 g/dL (1.3-4.6) 08/27/25 00:00 Lipase 35 U/L (13-60) 08/27/25 00:00 Procalcitonin 0.09 ng/mL (0-0.5) 08/27/25 11:19 Urine Color Dark yellow (Yellow) A 08/27/25:28 Urine Appearance Clear (CLEAR) 08/27/25:28 Urine pH 5.5 (5-7) 08/27/25 01:28 Ur Specific [place] 1.030 (1.005-1.030) 08/27/25 01:28 Urine Protein 1+ (Negative) A 08/27/25 01:28 Urine Glucose (UA) Negative (Normal) 08/27/25 01:28 Urine Ketones Trace (Negative) 08/27/25 01: Urine Blood Negative (Negative) 08/27/25 01: Urine Nitrate Negative (Negative) 08/27/25 01: Urine Bilirubin Negative (Negative) 08/27/25 01: Urine Urobilinogen 1.0 mg/dL (Negative) 08/27/25 01:28 Ur Leukocyte Esterase Trace (Negative) A 08/27/25 01:28 Urine RBC 0-4 /hpf (0-2) H 08/27/25 01: Urine WBC 5-10 /hpf (0-5) H 08/27/25: Ur Squamous Epith Cells 5-10 /hpf (0-5) H 08/27/25: Amorphous Sediment Not Reportable 08/27/25 01: Urine Bacteria Trace /hpf (NONE) 08/27/25 01: Urine Mucus 1+ /hpf 08/27/25 01:28 EKG 1: My Interpretation: EKG showed normal sinus rhythm with QS pattern in lead V2. ST elevation in lead V2 with diffuse nonspecific ST-T changes in the anterolateral leads. Compared to the previous EKG, there may not be significant change Other data: CT of the chest and abdomen from today 1. Indeterminate right lower quadrant fat stranding and fluid collection, some of which measures hemorrhagic and attenuation. Given recent history of cardiac stenting, spontaneous retroperitoneal hemorrhage should be considered. Consider serial monitoring of hemoglobin and hematocrit. If concern for active hemorrhage is present, CT angiography can be obtained. In the absence of elevated white count, ruptured tip appendicitis is considered less likely . Ruptured ovarian cyst could also be considered. 2. Mild/moderate bilateral renal cortical atrophy is noted. Correlate with renal function. 3. Right ureteral urothelial enhancement. Correlate with urinalysis/cytology to exclude UTI. Findings may be reactive to adjacent inflammatory sequela. 4. Severe left hip osteoarthritis. Echocardiogram from today Mild diffuse hypokinesis of the left ventricle with an ejection fraction of 45 to 50%. Mildly dilated LV cavity. Possibly normal atrial sizes. There is no pericardial effusion. There are no intracardiac masses. Compared to the study from 08/16/2025, there may be a slight improvement in the LV ejection fraction A&P Assessment and plan 1. Elevated troponin: Patient's troponin levels appear to be trending down gradually from what she had 2 weeks ago. Does not look like that she is having any recurrent infarction. The ST elevation in the EKG is from the recent infarction 2. Recent non-ST elevation myocardial infarction: Patient status post PCI of the proximal and mid LAD with balloon angioplasty of the ostium of the first diagonal branch. She has high-grade lesions in the RCA and circumflex artery which need to be intervened. But currently she seems to be stable. 3. Ischemic cardiomyopathy: The LV ejection fraction seems to be improving. 4. Acute right-sided thoracic back pain: The back pain most likely is musculoskeletal. Some form of nerve compression/neuropathic pain need to be looked into. The retroperitoneal hematoma causing the pain cannot be excluded 5. Retroperitoneal hematoma: The hematoma seems to be resolving based on the CT scan. 6. Primary hypertension: The blood pressure is under control. May continue other current medications. 7. Mixed hyperlipidemia: May continue on the current medications. Plan: From the cardiac standpoint, patient seems to be stable. Workup of the back pain as per the primary service We may schedule her for the staged PCI in 4 to 6 weeks, unless there is a change in her cardiac status. PDMP PDMP Reviewed: Not Reviewed Consult Attestations Medical Necessity Statement: Patient requires continued hospital stay for close monitoring and further management Coding Level of Care Code 08262 Diagnoses Elevated troponin R79.89 Recent non-ST elevation myocardial infarction Ischemic cardiomyopathy I25.5 Acute right-sided thoracic back pain M54.6 Back pain location: thoracic back pain Back pain laterality: right Chronicity: acute Retroperitoneal hematoma K68.3 Primary hypertension I10 Hypertension type: primary hypertension Mixed hyperlipidemia E78.2 Hyperlipidemia type: mixed hyperlipidemia
[2025-08-28] VITALS: BP 136/80; PULSE 107; RESP 18; TEMP 36.6; O2SAT 95
[2025-08-28 03:33] LABS: Hematocrit 32.5 % (36-47); Hemoglobin 10.70 g/dL (11.27-16.99); Mean Corpuscular HGB Conc 32.9 g/dL (30-55); Mean Corpuscular Hemoglobin 28.7 pg (27-33); Mean Corpuscular Volume 87.1 fl (85-98); Nucleated Red Blood Cells % 0 %; Platelet Count 378 10^3/cmm (157-399); Red Blood Count 3.73 10^6/uL (3.85-5.65); White Blood Count 10.10 10^3/uL (3.29-11.43)
[2025-08-28 03:37] VITALS: BP 121/82; PULSE 98; RESP 27; TEMP 37; O2SAT 94
[2025-08-28 03:52] LABS: Alanine Aminotransferase 23 U/L (0-33); Albumin Level 3.4 g/dL (3.5-5.2); Alkaline Phosphatase 217 U/L (35-105); Anion Gap 18.0 (5-19); Aspartate Amino Transferase 29 U/L (0-32); Blood Urea Nitrogen 13 mg/dL (8-23); Calcium 9.0 mg/dL (8.5-10.5); Carbon Dioxide 20 mmol/L (22-29); Chloride 104 mmol/L (98-107); Creatinine Clr Calc Pharmacy 63.3722; Globulin 3.0 g/dL (1.3-4.6); Glucose 126 mg/dL (65-115); Osmolality Calculated 288 mOsm/kg (285-295); Potassium 4.0 mmol/L (3.5-5.1); Sodium 138 mmol/L (136-145); Total Protein 6.4 g/dL (6.6-8.7)
[2025-08-28 04:07] LABS: NT Pro B Type Natriuretic Pept 12388 pg/mL (0-125)
[2025-08-28] MEDS: polyethylene glycol 3350 Pkt 17 gm PO (04:57)
[2025-08-28] MEDS: cefTRIAXone 1,000 mg SDV 1000 MG IVP (04:57)
[2025-08-28 06:50] VITALS: BP 109/73; PULSE 75; RESP 22; TEMP 36.6; O2SAT 94
[2025-08-28 08:27] VITALS: BP 117/82; BP 136/107; BP 139/107; PULSE 77; PULSE 89; PULSE 90
[2025-08-28 11:50] VITALS: BP 101/74; PULSE 86; RESP 15; TEMP 36.7; O2SAT 96
--- NOTE | 2025-08-28 12:19 | P.DS_ITS ---
Documented by User: SHAYNE Key STDALICIA 08/28/25 12:30 Discharge Providers Date of Admission: 08/27/25 05:28 Date of Discharge: August 28, 2025 Attending Provider at Admission: Scottie Baker Attending Provider at Discharge: Jorge Hunter MD Consults: Bianca Hubbard MD / Cardiology Primary Care Provider: TARA Martinez Diagnoses at Discharge Discharge Diagnosis 1. Elevated troponin: 2. Recent non-ST elevation myocardial infarction: 3. Ischemic cardiomyopathy: 4. Acute right-sided thoracic back pain: 5. Retroperitoneal hematoma: 6. Primary hypertension: 7. Mixed hyperlipidemia: Reason for Visit Reason for Visit: Abd Pain, RT side weakness Brief History: Monitoring for worsening retroperitoneal hemorrhage and possible NSTEMI. Hospital Course Hospital Course This is a 6-year-old female with a past medical history of CAD, history of retroperitoneal hematoma, acute blood loss anemia, CHF, who presents [facility] due to back pain, elevated troponins NSTEMI, elevated troponins, no chest pain complaints -Cardiac echocardiogram - Serial EKGs, serial troponins, telemetry monitoring - Continue aspirin, statin, Plavix - CONCLUSIONS Mild diffuse hypokinesis of the left ventricle with an ejection fraction of 45 to 50%. Mildly dilated LV cavity. Possibly normal atrial sizes. There is no pericardial effusion. There are no intracardiac masses. Compared to the study from 08/16/2025, there may be a slight improvement in the LV ejection fraction - Will consult cardiology, recommended medical management, continue aspirin, statin, Plavix on discharge Coronary artery disease status post cardiac stenting Conclusions 1. Total thrombotic occlusion of proximal LAD S/p PCI with 3 stents. Severe mid RCA stenosis. Reviewed will perform staged PCI. Also has mid to distal circumflex artery with severe stenosis. Plan for staged PCI. 2. Proximal Left Anterior Descending was treated with a Balloon, Balloon, Balloon, and Drug Eluting Stent. 3. Mid Left Anterior Descending was treated with a Drug Eluting Stent, and Drug Eluting Stent. 4. 1st Diagonal was treated with a Balloon. Retroperitoneal hematoma (improving on CT) : CT/CT abdomen pelvis w con* [id number] IMPRESSION: 1. Indeterminate right lower quadrant fat stranding and fluid collection, some of which measures hemorrhagic and attenuation. Given recent history of cardiac stenting, spontaneous retroperitoneal hemorrhage should be considered. Consider serial monitoring of hemoglobin and hematocrit. If concern for active hemorrhage is present, CT angiography can be obtained. In the absence of elevated white count, ruptured tip appendicitis is considered less likely . Ruptured ovarian cyst could also be considered. 2. Mild/moderate bilateral renal cortical atrophy is noted. Correlate with renal function. 3. Right ureteral urothelial enhancement. Correlate with urinalysis/cytology to exclude UTI. Findings may be reactive to adjacent inflammatory sequela. 4. Severe left hip osteoarthritis. CT/CT abdomen pelvis w con* [id number] Addendum: This addendum is to address updated findings. The right lower quadrant fluid collection has decreased in size with comparison to the prior examination dated 08/13/2025, consistent with improving/resolving retroperitoneal hemorrhage. -Hemodynamics stable, hemoglobin stable Patient was monitored as inpatient, back pain has resolved, hemodynamics remained stable, hemoglobin stable, discharged home Heart failure with reduced ejection fraction (HFrEF) : - No evidence of fluid overload monitor Possible urinary tract infection vs reactive ureteral change : Right ureteral urothelial enhancement on CT; differential includes mild UTI versus reactive change. - Received IV antibiotics, discharged on p.o. antibiotics altered mental status, CVA: Oriented x 3, follow commands Recent aspiration pneumonia, no recurrent aspiration events Physical Exam Const: COMMON NORMALS: no acute distress, patient oriented x3 and alert Resp: COMMON NORMALS: normal respiratory effort and clear to auscultation bilaterally AUSCULTATION: clear to auscultation bilaterally Cardio: COMMON NORMALS: regular rate, regular rhythm, S1 normal heart sound present, S2 normal heart sound present and No murmurs present (Cardio) RATE: regular rate RHYTHM: regular rhythm HEART SOUNDS: S1 normal heart sound present and S2 normal heart sound present Back/Pelvis: GENERAL BACK: Yes tenderness (bilaterally to soft palpation) Neuro: COMMON NORMALS: patient oriented x3 SENSORIUM/ORIENTATION: Yes alert Skin: COMMON NORMALS: no rashes or lesions noted GENERAL SKIN EXAM: no rashes or lesions noted Discharge Data Studies Completed and Pending Completed Studies During Hospitalization Category Date Time Status CT abdomen pelvis w con* [id number] Stat Cat Scan 08/27/25 00:35 Completed XR chest 1V portable [id number] Stat Exams 08/26/25 23:48 Completed CV. echo limited [id number] Routine Ultrasound 08/27/25 08:34 Completed US renal BI* [id number] Routine Ultrasound 08/27/25 08:35 Completed Pending at discharge Category Date Time Status Complete Blood Count w/Auto AM LABS Lab 08/29/25 04:00 Ordered Complete Blood Count w/Auto AM LABS Lab 08/30/25 04:00 Ordered Comprehensive Metabolic Panel AM LABS Lab 08/29/25 04:00 Ordered Comprehensive Metabolic Panel AM LABS Lab 08/30/25 04:00 Ordered NT Pro B Type Natriuretic Pept QAM Lab 08/29/25 06:00 Ordered NT Pro B Type Natriuretic Pept QAM Lab 08/30/25 06:00 Ordered Urine Culture Routine Lab 08/27/25 01:28 Results Radiology Impressions Chest X-Ray 08/26/25 23:48 IMPRESSION: Mediastinal contour is measure at the upper limits of normal, which may be artifactual given AP projection. CT chest with contrast can be obtained if clinical concern for acute aortic pathology is present. Otherwise, no acute pulmonary process. Abdomen/Pelvis CT 08/27/25 00:35 IMPRESSION: 1. Indeterminate right lower quadrant fat stranding and fluid collection, some of which measures hemorrhagic and attenuation. Given recent history of cardiac stenting, spontaneous retroperitoneal hemorrhage should be considered. Consider serial monitoring of hemoglobin and hematocrit. If concern for active hemorrhage is present, CT angiography can be obtained. In the absence of elevated white count, ruptured tip appendicitis is considered less likely . Ruptured ovarian cyst could also be considered. 2. Mild/moderate bilateral renal cortical atrophy is noted. Correlate with renal function. 3. Right ureteral urothelial enhancement. Correlate with urinalysis/cytology to exclude UTI. Findings may be reactive to adjacent inflammatory sequela. 4. Severe left hip osteoarthritis. COMMENTS: Consistent with the [employer]'s Incidental Findings Committee white paper (J Am Lindsey Radiol 2018): Any incidental renal lesion less than 1 cm or classified as too small to characterize, or any incidental cystic renal lesion characterized as simple-appearing, is likely benign. No follow-up imaging is recommended for these lesions per consensus recommendations based on imaging criteria. ADDENDUM: 08/27/25 0306 Addendum: This addendum is to address updated findings. The right lower quadrant fluid collection has decreased in size with comparison to the prior examination dated 08/13/2025, consistent with improving/resolving retroperitoneal hemorrhage. The findings were verbally communicated via telephone conference with Marine Ochoa at 3:04 AM CDT on 08/27/2025. The findings were acknowledged and understood. Renal Ultrasound 08/27/25 08:35 IMPRESSION: 1. Mild atrophy RIGHT kidney with diffuse cortical thinning. 2. No renal obstruction. Laboratory Results WBC 10.10 10^3/uL (3.29-11.43) 08/28/25 03:25 RBC 3.73 10^6/uL (3.85-5.65) L 08/28/25 03:25 Hgb 10.70 g/dL (11.27-16.99) L 08/28/25 03:25 Hct 32.5 % (36-47) L 08/28/25 03:25 MCV 87.1 fl (85-98) 08/28/25 03:25 MCH 28.7 pg (27-33) 08/28/25 03:25 MCHC 32.9 g/dL (30-55) 08/28/25 03:25 RDW 13.8 % (12.1-15.1) 08/28/25 03:25 Plt Count 378 10^3/cmm (157-399) 08/28/25 03:25 MPV 8.6 fL (7.4-10.4) 08/28/25 03:25 Neut % (Auto) 88.5 % 08/28/25 03:25 Lymph % (Auto) 4.7 % 08/28/25 03:25 [place] % (Auto) 4.3 % 08/28/25 03:25 Eos % (Auto) 1.3 % 08/28/25 03:25 Baso % (Auto) 0.6 % 08/28/25 03:25 Neut # (Auto) 8.95 10^3/uL (1.8-7.7) H 08/28/25 03:25 Lymph # (Auto) 0.5 10^3/uL (0.8-4.8) L 08/28/25 03:25 [place] # (Auto) 0.4 10^3/uL (0.2-0.9) 08/28/25 03:25 Eos # (Auto) 0.1 10^3/uL (0.0-0.8) 08/28/25 03:25 Baso # (Auto) 0.1 10^3/uL (0.0-0.1) 08/28/25 03:25 Nucleated RBC % (auto) 0 % 08/28/25 03:25 Nucleated RBCs # 0.0 /100WBC 08/28/25 03:25 ESR 30 mm/hr (0-15) H 08/27/25 11:19 Sodium 138 mmol/L (136-145) 08/28/25 03:25 Potassium 4.0 mmol/L (3.5-5.1) 08/28/25 03:25 Chloride 104 mmol/L (98-107) 08/28/25 03:25 Carbon Dioxide 20 mmol/L (22-29) L 08/28/25 03:25 Anion Gap 18.0 (5-19) 08/28/25 03:25 BUN 13 mg/dL (8-23) 08/28/25 03:25 Creatinine 1.0 mg/dL (0.5-0.9) H 08/28/25 03:25 GFR Calculation 56.6 mL/min (90-130) L 08/28/25 03:25 Glucose 126 mg/dL (65-115) H 08/28/25 03:25 Calculated Osmolality 288 mOsm/kg (285-295) 08/28/25 03:25 Calcium 9.0 mg/dL (8.5-10.5) 08/28/25 03:25 Total Bilirubin 1.3 mg/dL (0.15-1.2) H 08/28/25 03:25 AST 29 U/L (0-32) 08/28/25 03:25 ALT 23 U/L (0-33) 08/28/25 03:25 Alkaline Phosphatase 217 U/L (35-105) H 08/28/25 03:25 Troponin T 5th Gen ng/L 462 ng/L (0-10) H* 08/27/25 12:55 Troponin T Baseline 652 ng/L (0-10) H* 08/27/25 00:00 Troponin T 120 Minute 575.7 ng/L (0-10) H 08/27/25 03:53 Delta Troponin T -76.3 ABS# (0-10) L 08/27/25 03:53 Troponin T Hi Sens 6Hr 555.1 ng/L (0-10) H 08/27/25 07:35 Troponin T Hi Sens 6Hr Delta -96.9 ng/L (0-12) L 08/27/25 07:35 C-Reactive Protein 20.8 mg/L (0.0-4.9) H 08/27/25 11:19 NT-Pro-B Natriuret Pep 66130 pg/mL (0-125) H 08/28/25 03:25 Total Protein 6.4 g/dL (6.6-8.7) L 08/28/25 03:25 Albumin 3.4 g/dL (3.5-5.2) L 08/28/25 03:25 Globulin 3.0 g/dL (1.3-4.6) 08/28/25 03:25 Lipase 35 U/L (13-60) 08/27/25 00:00 Procalcitonin 0.09 ng/mL (0-0.5) 08/27/25 11:19 Urine Color Dark yellow (Yellow) A 08/27/25 01:28 Urine Appearance Clear (CLEAR) 08/27/25 01:28 Urine pH 5.5 (5-7) 08/27/25 01:28 Ur Specific [place] 1.030 (1.005-1.030) 08/27/25 01:28 Urine Protein 1+ (Negative) A 08/27/25 01:28 Urine Glucose (UA) Negative (Normal) 08/27/25 01: Urine Ketones Trace (Negative) 08/27/25 01:28 Urine Blood Negative (Negative) 08/27/25 01: Urine Nitrate Negative (Negative) 08/27/25 01: Urine Bilirubin Negative (Negative) 08/27/25 01:28 Urine Urobilinogen 1.0 mg/dL (Negative) 08/27/25 01:28 Ur Leukocyte Esterase Trace (Negative) A 08/27/25 01:28 Urine RBC 0-4 /hpf (0-2) H 08/27/25 01:28 Urine WBC 5-10 /hpf (0-5) H 08/27/25 01:28 Ur Squamous Epith Cells 5-10 /hpf (0-5) H 08/27/25 01:28 Amorphous Sediment Not Reportable 08/27/25 01: Urine Bacteria Trace /hpf (NONE) 08/27/25 01:28 Urine Mucus 1+ /hpf 08/27/25 01:28 Vitals Last Vital Signs Temp 98.0 F 08/28/25 11:50 Pulse 86 08/28/25 11:50 Resp 15 08/28/25 11:50 BP 101/74 08/28/25 11:50 Pulse Ox 96 08/28/25 11:50 O2 Del Method Room Air 08/28/25 06:50 Discharge Plan Discharge Patient Disposition: Home Condition: Stable Prescriptions: New amoxicillin-pot clavulanate 875-125 mg tablet 1 tab PO BID 7 Days Qty: 14 0RF Continued sacubitril-valsartan [Entresto] 24-26 mg tablet 1 tab PO BID Qty: 180 3RF carvedilol 12.5 mg Tablet 12.5 mg PO BID Qty: 60 1RF clopidogrel 75 mg Tablet 75 mg PO DAILY Qty: 30 1RF amlodipine 5 mg Tablet 5 mg PO DAILY Qty: 30 1RF aspirin 81 mg Tablet,Delayed Release (Dr/Ec) 81 mg PO DAILY Qty: 30 1RF nitroglycerin 0.4 mg Tablet, Sublingual 0.4 mg sublingual Q5M PRN (Reason: Chest Pain) Qty: 30 1RF cyclobenzaprine 10 mg tablet 10 mg PO TID Qty: 14 0RF pantoprazole 40 mg tablet,delayed release (DR/EC) 40 mg PO DAILY albuterol sulfate 90 mcg/actuation HFA aerosol inhaler See Rx Instructions .ROUTE .COMPLEX Rx Instructions: INHALE TWO PUFFS INTO THE LUNGS EVERY 4 TO 6 HOURS NEEDED atorvastatin 40 mg Tablet 80 mg PO BEDTIME Qty: 30 1RF Discharge Order = DC NOW: Discharge Order (Routine); Ordered 08/28/25 Ordered By: Jorge Hunter Referrals: Frankie Deleon [employer] SUPERVISOR [Primary Care Provider, Nurse Practitioner] - 09/02/25 11:15 am Discharge Diet: Cardiac Discharge Activity: Resume usual activity Patient Instructions: Amoxicillin (By mouth), Opioid Safety, Patient Portal & Kelechi Instructions Coding Level of Care Code 86028 Diagnoses Elevated troponin R79.89 Recent non-ST elevation myocardial infarction Ischemic cardiomyopathy I25.5 Acute right-sided thoracic back pain M54.6 Back pain laterality: right Back pain location: thoracic back pain Chronicity: acute Retroperitoneal hematoma K68.3 Primary hypertension I10 Hypertension type: primary hypertension Mixed hyperlipidemia E78.2 Hyperlipidemia type: mixed hyperlipidemia Documented by User: Jorge Hunter MD 09/03/25 11:58 Diagnoses at Discharge Discharge Diagnosis 1. Elevated troponin: 2. Recent non-ST elevation myocardial infarction: 3. Ischemic cardiomyopathy: 4. Acute right-sided thoracic back pain: 5. Retroperitoneal hematoma: 6. Primary hypertension: 7. Mixed hyperlipidemia: Reason for Visit Reason for Visit: Abd Pain, RT side weakness Hospital Course Hospital Course This is a 6-year-old female with a past medical history of CAD, history of retroperitoneal hematoma, acute blood loss anemia, CHF, who presents [facility] due to back pain, elevated troponins NSTEMI, elevated troponins, no chest pain complaints -Cardiac echocardiogram - Serial EKGs, serial troponins, telemetry monitoring - Continue aspirin, statin, Plavix - CONCLUSIONS Mild diffuse hypokinesis of the left ventricle with an ejection fraction of 45 to 50%. Mildly dilated LV cavity. Possibly normal atrial sizes. There is no pericardial effusion. There are no intracardiac masses. Compared to the study from 08/16/2025, there may be a slight improvement in the LV ejection fraction - Will consult cardiology, recommended medical management, continue aspirin, statin, Plavix on discharge Coronary artery disease status post cardiac stenting Conclusions 1. Total thrombotic occlusion of proximal LAD S/p PCI with 3 stents. Severe mid RCA stenosis. Reviewed will perform staged PCI. Also has mid to distal circumflex artery with severe stenosis. Plan for staged PCI. 2. Proximal Left Anterior Descending was treated with a Balloon, Balloon, Balloon, and Drug Eluting Stent. 3. Mid Left Anterior Descending was treated with a Drug Eluting Stent, and Drug Eluting Stent. 4. 1st Diagonal was treated with a Balloon. Retroperitoneal hematoma (improving on CT) : CT/CT abdomen pelvis w con* [id number] IMPRESSION: 1. Indeterminate right lower quadrant fat stranding and fluid collection, some of which measures hemorrhagic and attenuation. Given recent history of cardiac stenting, spontaneous retroperitoneal hemorrhage should be considered. Consider serial monitoring of hemoglobin and hematocrit. If concern for active hemorrhage is present, CT angiography can be obtained. In the absence of elevated white count, ruptured tip appendicitis is considered less likely . Ruptured ovarian cyst could also be considered. 2. Mild/moderate bilateral renal cortical atrophy is noted. Correlate with renal function. 3. Right ureteral urothelial enhancement. Correlate with urinalysis/cytology to exclude UTI. Findings may be reactive to adjacent inflammatory sequela. 4. Severe left hip osteoarthritis. CT/CT abdomen pelvis w con* [id number] Addendum: This addendum is to address updated findings. The right lower quadrant fluid collection has decreased in size with comparison to the prior examination dated 08/13/2025, consistent with improving/resolving retroperitoneal hemorrhage. -Hemodynamics stable, hemoglobin stable Patient was monitored as inpatient, back pain has resolved, hemodynamics remained stable, hemoglobin stable, discharged home Heart failure with reduced ejection fraction (HFrEF) : - No evidence of fluid overload monitor Possible urinary tract infection vs reactive ureteral change : Right ureteral urothelial enhancement on CT; differential includes mild UTI versus reactive change. - Received IV antibiotics, discharged on p.o. antibiotics altered mental status, CVA: Oriented x 3, follow commands Recent aspiration pneumonia, no recurrent aspiration events Physical Exam GI: COMMON NORMALS: Normal to inspection, nondistended, normoactive bowel sounds present, Soft to palpation and non-tender PALPATION: Yes Soft to palpation : COMMON NORMALS: Yes no CVA tenderness BLADDER/KIDNEY EXAM: Yes no CVA tenderness Back/Pelvis: COMMON NORMALS: no CVA tenderness Neuro: COMMON NORMALS: CN's II-XII intact bilaterally and moves all extremities Discharge Plan Discharge Patient Disposition: Home Condition: Stable Prescriptions: New amoxicillin-pot clavulanate 875-125 mg tablet 1 tab PO BID 7 Days Qty: 14 0RF Continued sacubitril-valsartan [Entresto] 24-26 mg tablet 1 tab PO BID Qty: 180 3RF carvedilol 12.5 mg Tablet 12.5 mg PO BID Qty: 60 1RF clopidogrel 75 mg Tablet 75 mg PO DAILY Qty: 30 1RF amlodipine 5 mg Tablet 5 mg PO DAILY Qty: 30 1RF aspirin 81 mg Tablet,Delayed Release (Dr/Ec) 81 mg PO DAILY Qty: 30 1RF nitroglycerin 0.4 mg Tablet, Sublingual 0.4 mg sublingual Q5M PRN (Reason: Chest Pain) Qty: 30 1RF cyclobenzaprine 10 mg tablet 10 mg PO TID Qty: 14 0RF pantoprazole 40 mg tablet,delayed release (DR/EC) 40 mg PO DAILY albuterol sulfate 90 mcg/actuation HFA aerosol inhaler See Rx Instructions .ROUTE .COMPLEX Rx Instructions: INHALE TWO PUFFS INTO THE LUNGS EVERY 4 TO 6 HOURS NEEDED atorvastatin 40 mg Tablet 80 mg PO BEDTIME Qty: 30 1RF Discharge Order = DC NOW: Discharge Order (Routine); Ordered 08/28/25 Ordered By: Jorge Hunter Referrals: Frankie Deleon [employer] SUPERVISOR [Primary Care Provider, Nurse Practitioner] - 09/02/25 11:15 am Discharge Diet: Cardiac Discharge Activity: Resume usual activity Patient Instructions: Amoxicillin (By mouth), Opioid Safety, Patient Portal & Kelechi Instructions Discharge Attestations Time Spent in Discharge Care*: greater than 30 min Quality Metrics Clinical Quality Measures [ No reported AMI, CVA or VTE this stay] Coding Level of Care Code 76000 Total time (in minutes) for Discharge: 45 Diagnoses Elevated troponin R79.89 Recent non-ST elevation myocardial infarction Ischemic cardiomyopathy I25.5 Acute right-sided thoracic back pain M54.6 Back pain laterality: right Back pain location: thoracic back pain Chronicity: acute Retroperitoneal hematoma K68.3 Primary hypertension I10 Hypertension type: primary hypertension Mixed hyperlipidemia E78.2 Hyperlipidemia type: mixed hyperlipidemia
[2025-08-28 13:24] VITALS: BP 101/74; PULSE 79; RESP 24
== END 2025-08-28 13:25 | disposition home or self-care (01) ==
LOC: ER 08-27 05:31 → CSU 08-27 06:40
PROVIDERS: Admitting Provider Internal Medicine; Emergency Provider Emergency Medicine; PCP Nurse Practitioner; Visit Provider Family Medicine
DX: R79.89 Other specified abnormal findings of blood chemistry (principal); I25.5 Ischemic cardiomyopathy; M54.9 Dorsalgia, unspecified; K68.3 Retroperitoneal hematoma; E78.2 Mixed hyperlipidemia; Z79.82 Long term (current) use of aspirin; I25.10 Atherosclerotic heart disease of native coronary artery without angina pectoris; Z82.49 Family history of ischemic heart disease and other diseases of the circulatory system; Z87.891 Personal history of nicotine dependence; Z95.5 Presence of coronary angioplasty implant and graft; Z79.02 Long term (current) use of antithrombotics/antiplatelets; I50.22 Chronic systolic (congestive) heart failure; I11.0 Hypertensive heart disease with heart failure
CPT/HCPCS: 36415; 71045; 74177; 76770; 80053; 81001; 83690; 83880; 84145; 84484; 85025; 85651; 86140; 87086; 93005; 93308; 96374; 96375; 96376; 97116; 97161; 97165; 99285; A9281; G0378; J0696; J2270; J2405; J9999

== ENCOUNTER 2025-10-08 05:52 | Outpatient (CLI) | payer MEDICAID, SELFPAY ==
[2025-10-08 06:00] VITALS: BP 134/99; PULSE 76; RESP 16; TEMP 36.3; O2SAT 96; BMI 30.9
[2025-10-08 06:23] LABS: Hematocrit 42.3 % (36-47); Hemoglobin 13.90 g/dL (11.27-16.99); Mean Corpuscular HGB Conc 32.9 g/dL (30-55); Mean Corpuscular Hemoglobin 28.3 pg (27-33); Mean Corpuscular Volume 86.2 fl (85-98); Nucleated Red Blood Cells % 0 %; Platelet Count 302 10^3/cmm (157-399); Red Blood Count 4.91 10^6/uL (3.85-5.65); White Blood Count 6.04 10^3/uL (3.29-11.43)
[2025-10-08 06:38] LABS: Anion Gap 15.7 (5-19); Blood Urea Nitrogen 15 mg/dL (8-23); Calcium 9.7 mg/dL (8.5-10.5); Carbon Dioxide 25 mmol/L (22-29); Chloride 105 mmol/L (98-107); Glucose 122 mg/dL (65-115); Osmolality Calculated 296 mOsm/kg (285-295); Potassium 3.7 mmol/L (3.5-5.1); Sodium 142 mmol/L (136-145)
[2025-10-08 08:00] VITALS: BP 139/90; PULSE 68; RESP 14; O2SAT 94
--- NOTE | 2025-10-08 08:05 | SUR.PHASEII ---
PROCEDURE ABORT Patient taken to [facility]. Procedural sedation administered. Case aborted by Dr Santos after reviewing prevous cath films. Family brought in with MD about further managment of the lesions and patient treatment. Plan to discharge today after sedation wears of in 1 to 2 hours per verbal order from Dr Santos. Patient brought to [facility]. Vitals and assessments per flowsheets. Call light within reach. Informed to call for needs. Family remains at bedside.
[2025-10-08 08:13] VITALS: BP 119/93; PULSE 78; RESP 12; O2SAT 94
[2025-10-08 08:15] VITALS: BP 111/80; PULSE 75; RESP 13; O2SAT 95
--- NOTE | 2025-10-08 08:31 | P.PN_ITS ---
Subjective 2 Subjective: Today patient was scheduled to undergo staged PCI with Dr. Parker Rosales. I was not aware of this patient, given her complicated history highly calcified vessel patient requires possible arthrectomy/CSI and perhaps temporary pacemaker for RCA. Dr. Canales is not available today it is the reason patient states PCI was postponed as family would like to discuss options with Dr. Parker Rosales. Vitals/I&O/Wt Last Vital Signs Temp 97.3 F L 10/08/25 06:00 Pulse 75 10/08/25 08:15 Resp 13 10/08/25 08:15 BP 111/80 10/08/25 08:15 Pulse Ox 95 10/08/25 08:15 O2 Del Method Room Air 10/08/25 08:15 Weight last 48 hrs Weight 180 lb Data 10/08/25 06:10 10/08/25 06:10 A&P PDMP PDMP Reviewed: Not Reviewed Attestations 2 Medical Necessity Statement*: Patient can be discharged home Coding Level of Care Code Acute Code for Chg Ady
--- NOTE | 2025-10-08 08:58 | SUR.PHASEII ---
Discharge Patient discharged in stable condition after PAR assessments obtained and patient qualified. Dr Santos to place notes requarding future managment of this patient through heart care services and Dr Rosales. Condition stable. Left via wheelchair per private vehicle. Family is driving.
== END 2025-10-08 09:54 | disposition home or self-care (01) ==
PROVIDERS: PCP Nurse Practitioner; Visit Provider Internal Medicine Cardiovascular Disease
DX: Z53.8 Procedure and treatment not carried out for other reasons (principal)
CPT/HCPCS: 80048; 85025; J1644; J2250; J3010; J3490; J7030; J9999; Q0163

== ENCOUNTER 2025-10-11 05:47 | Outpatient (CLI) | payer MEDICAID, SELFPAY ==
[2025-10-11] VITALS (26 sets, daily range): BP systolic 99–170; BP diastolic 59–108; PULSE 62–104; RESP 12–26; TEMP 36.7–36.9; O2SAT 96–100; BMI 30.9
--- NOTE | 2025-10-11 06:00 | XACV_ITS ---
Exam Room: 2 Ht: 163 cm Wt: 82 kg BSA: 1.95 m2 Gender: Female : 1965 Any Known Allergies: Other Exam Priority: Routine Procedure(s): Procedure Description: Diagnostic procedure Procedure Description: PCI procedure Procedure Description: Drug Eluting Coronary Stent Procedure Description: PTCA Procedure Description: Cutting Balloon Procedure Description: Miscellaneous Procedure Description: Angio-Seal Procedure Description: ACT Procedure Description: Coronary Angiography Diagnostic Cath Status: Elective Diagnostic Findings * INDICATION: Staged PCI of RCA and mid left circumflex artery. * Left Main has no significant disease. * Left Anterior Descending has patent prior stents. * Mid Right Coronary Artery: severe 80% stenosis, SHERIDAN: 3 flow. * Proximal Right Coronary Artery: obstructive 70% stenosis, SHERIDAN: 3 flow. * Mid Circumflex to Mid Circumflex: critical 95% stenosis, SHERIDAN: 3 flow. * Coronary angiography shows right dominance. PCI Status: Elective PCI Indication: Staged PCI Interventional Findings * Procedure detail: We engaged RCA with AL 0.75 guide catheter. Run-through wire was used to cross the stenosis. IVUS was performed to size the vessel. We predilated the vessel with 3.0 x 10 mm score flex Cutting Balloon. This was followed by predilation with 4.0 x 27 mm NC balloon. We then placed 4.0 x 38 mm resolute Soni drug-eluting stent and mid RCA. Proximal RCA also appeared to have significant disease on the IVUS and had dampening pressures. We predilated the proximal RCA with 4.0x15mm NC balloon. We placed an overlapping 4.0x18mm Resolute soni EDGARDO. We postdilated the stents with 4.0 x 15 mm NC balloon. At this time final angiogram was performed that showed excellent stent expansion and SHERIDAN-3 flow. Guidewire and guide catheter were removed. We then turned our attention to mid left circumflex artery stenosis. We predilated the stenosis with 2.5 x 12 mm semicompliant balloon. This was followed by a 2.5 x 12 mm resolute Soni drug-eluting stent. Patient left the Textile Technical Officer in a stable condition.. * Proximal Right Coronary Artery: 70% stenosis treated with a MDT NC EUPHORA RX [id number] BALLOON, and MDT R SONI 4.0X18 EDGARDO. 0% residual stenosis, SHERIDAN: 3 flow. * Mid Right Coronary Artery: 80% stenosis treated with a Scoreflex 3.0x10mm Scoring PTCA Catheter, NC EUPHORA 4.0X27, MDT R SONI 4.0X38 EDGARDO, and MDT NC EUPHORA RX [id number] BALLOON. 0% residual stenosis, SHERIDAN: 3 flow. * Mid Circumflex to Mid Circumflex: 95% stenosis treated with a AB TREK 2.50X12 RX BALLOON, and MDT R SONI 2.5X12 EDGARDO. 0% residual stenosis, SHERIDAN: 3 flow. Conclusions 1. Severe proximal to mid RCA stenosis s/p PCI with 2 stents. Severe mid left circumflex artery stenosis s/p PCI with 1 stent. 2. Proximal Right Coronary Artery was treated with a Balloon, and Drug Eluting Stent. 3. Mid Right Coronary Artery was treated with a Balloon, Balloon, Drug Eluting Stent, and Balloon. 4. Mid Circumflex to Mid Circumflex was treated with a Balloon, and Drug Eluting Stent. Recommendations * Dual antiplatelet therapy with aspirin and plavix. * High intensity statin therapy. * Outpatient cardiology follow up in 2 weeks. Interventional RX Recommendation: PCI w/o planned CABG Anticoagulation: Heparin Pressures Phase:Rest AO : 124 / 74 ( 92 ) @ 8:16:00 AM 94 / 61 ( 76 ) @ 8:21:00 AM 115 / 90 ( 103 ) @ 8:29:00 AM 143 / 94 ( 116 ) @ 8:45:00 AM 149 / 80 ( 106 ) @ 9:07:00 AM 148 / 91 ( 116 ) @ 9:25:00 AM Clinical Evaluation EBL: 5mL-10mL Procedural Details Pre-Procedure Time Out. Identified patient by full name and date of as verbalized by the patient/guarantor. Does the consent match the physician's order: Yes. Accurate & Complete Informed Consent: Yes. Inpatient/Outpatient History & Physical on Chart: Yes. If H&P is completed, is and addenduem needed: No; If yes, is the addendum complete: N/A. Visualize and Verify Site with Patient/Guarantor: N/A. Relevant Radiology Images available: Yes. Pre-op teaching completed and patient verbalized understanding. The risks, benefits, and alternatives of sedation and/or procedure were discussed by physician. The patient agrees to continue. Procedure started. Physician arrived. [facility] Clinical Fraility Score: 4: Vulnerable. Textile Technical Officer Indications: Stable Known CAD. Chest Pain Symptom Assessment: Typical Angina Symptoms. Correct patient, site and procedure confirmed by cath team. Current diagnosis: Chest Pain. PERRLA. Strong, equal hand prospecting driller helper bilaterally. Lungs clear x 5 lobes. IV Site on Arrival: 20 gauge in the left anticubital. IV Fluids: 0.9% NaCl at KVO. 0 mL infused prior to cook house laborer. Pre Procedural Pulses: bilateral dorsalis pedis was Doppled. Pre Procedural Pulses: bilateral posterior tibial was Doppled. Pre Procedural Pulses: right radial was 1+. Oxygen started at 2liters/min via nasal canula. bilateral groins was prepped with chloroprep then draped in the usual sterile fashion. Baseline sample Acquired. HR: 112 BPM. Physician scrubbed in. Immediate Pre-Procedure Time Out. Correct Patient: Yes; Correct Procedure: Yes; Correct Site: Yes; Correct Patient Position: Yes; Correct Supplies: Yes; Dried Flammable Prep: Yes; Blood Products Available: N/A;. AP Pads placed on the patient. Lidocaine 1% infiltrated to the left groin. Ultrasound being used to obtain arterial access. Arterial access obtained with micropuncture set. 6 russian AL 0.75 guide catheter was inserted over the wire. Runthrough guidewire was advanced through the guide catheter to lesion in the mid RCA. IVUS catheter inserted OTW. IVUS measurements obtained. IVUS catheter out OTW. Inflation number : 1 A Scoreflex 3.0x10mm Scoring PTCA Catheter was prepped and advanced across the Mid RCA , then inflated to 12 TAIWO for 0:25 seconds. Inflation number: 2 The Scoreflex 3.0x10mm Scoring PTCA Catheter was reinflated across the Mid RCA, to 8 TAIWO for 0:14 seconds. Balloon out. Inflation number : 3 A NC EUPHORA 4.0X27 was prepped and advanced across the Mid RCA , then inflated to 12 TAIWO for 0:09 seconds. Inflation number: 4 The NC EUPHORA 4.0X27 was reinflated across the Mid RCA, to 12 TAIWO for 0:10 seconds. Balloon out. Stent inserted to lesion in the mid RCA. Inflation Number : 5 A MDT R SONI 4.0X38 EDGARDO -Lot Number# _[id number]_ EXP: 01/24/2028 was prepped and advanced across the Mid RCA. The stent was deployed at 12 TAIWO for 0:19 seconds. Stent balloon out over wire. 4.0x27mm NC Euphora inserted OTW. Balloon out. Inflation number : 6 A MDT NC EUPHORA RX [id number] BALLOON was prepped and advanced across the Mid RCA , then inflated to 16 TAIWO for 0:10 seconds. Inflation number: 7 The MDT NC EUPHORA RX [id number] BALLOON was reinflated across the Mid RCA, to 18 TAIOW for 0:09 seconds. Inflation number: 8 The MDT NC EUPHORA RX [id number] BALLOON was reinflated across the Mid RCA, to 16 TAIWO for 0:08 seconds. Inflation number: 9 The MDT NC EUPHORA RX [id number] BALLOON was reinflated across the Mid RCA, to 18 TAIWO for 0:10 seconds. Balloon out. IVUS catheter inserted OTW. IVUS measurements obtained. IVUS catheter out OTW. Results checked. Physician review of cine films. IVUS catheter inserted OTW. IVUS measurements obtained. IVUS catheter out OTW. Inflation number: 1 The MDT NC EUPHORA RX [id number] BALLOON was reinflated across the Prox RCA, to 12 TAIWO for 0:09 seconds. Inflation number: 2 The MDT NC EUPHORA RX [id number] BALLOON was reinflated across the Prox RCA, to 12 TAIWO for 0:09 seconds. Balloon out. Inflation Number : 3 A MDT R SONI 4.0X18 EDGARDO -Lot Number# _[id number]_ EXP: 07/17/2027 was prepped and advanced across the Prox RCA. The stent was deployed at 12 TAIWO for 0:17 seconds. Stent balloon out over wire. Inflation number: 4 The MDT NC EUPHORA RX [id number] BALLOON was reinflated across the Prox RCA, to 18 TAIWO for 0:07 seconds. Inflation number: 5 The MDT NC EUPHORA RX [id number] BALLOON was reinflated across the Prox RCA, to 18 TAIWO for 0:06 seconds. Balloon out. IVUS catheter inserted OTW. IVUS measurements obtained. IVUS catheter out OTW. Wire out. ACT drawn. Results out of range high seconds. Therapeutic limits - pre-heparin administration 90-150 seconds and monitoring heparin during a vascular procedure >250 seconds. Guide catheter out. 6 russian XB 3.5 guide catheter was inserted over the wire. Runthrough guidewire was advanced through the guide catheter to lesion in the mid Circ. A second Runthrough guidewire was advanced through the guide catheter to lesion in the OM. Both wires out. Runthrough guidewire was advanced through the guide catheter to lesion in the mid Circ. Supercross catheter inserted OTW. DOC extenstion attached to the Runthrough wire. SuperCross and DOC wire out. Inflation number : 1 A AB TREK 2.50X12 RX BALLOON was prepped and advanced across the Mid CX , then inflated to 8 TAIWO for 0:06 seconds. Inflation number: 2 The AB TREK 2.50X12 RX BALLOON was reinflated across the Mid CX, to 10 TAIWO for 0:11 seconds. Balloon out. Stent inserted to lesion in the mid Circ. Intact stent out OTW. Guideliner inserted OTW. Stent inserted to lesion in the mid Circ. Intact stent out OTW. Guideliner out OTW. Inflation number: 3 The AB TREK 2.50X12 RX BALLOON was reinflated across the Mid CX, to 12 TAIWO for 0:10 seconds. Inflation number: 4 The AB TREK 2.50X12 RX BALLOON was reinflated across the Mid CX, to 16 TAIWO for 0:11 seconds. Balloon out. Guideliner inserted. Inflation Number : 5 A MDT R SONI 2.5X12 EDGARDO -Lot Number# _[id number]_ EXP: 02/14/2027 was prepped and advanced across the Mid CX. The stent was deployed at 12 TAIWO for 0:15 seconds. Stent balloon out over wire. Results checked. Wire out. Guideliner out. Results checked. ACT drawn. Results out of range high seconds. Therapeutic limits - pre-heparin administration 90-150 seconds and monitoring heparin during a vascular procedure >250 seconds. Guide catheter out. A Left femoral angiogram was performed to determine safe placement of closure device. Lidocaine 1% infiltrated to the left groin. A Angio-Seal VIP ([place]) was successful obtaining hemostatsis at the Left Femoral artery insertion site. Post Procedure: Pulses reassessed and unchanged. PERRLA. Strong, equal hand prospecting driller helper bilaterally. No VTE prophylaxis required. Medication's Wasted: Other = Fentanyl 75 mcg. Medication's Wasted: Heparin = 1000 units. Total IV fluids: 324 mL. Post-op diagnosis: Stent to RCA and CX. Complications: None. Estimated blood loss: 5mL-10mL. Responsiveness - Normal response to verbal stimuli; alert and oriented, PERRLA. Airway - Unaffected, no intervention required; spontaneous ventilation. Circulation: W/N/L, pulses unchanged. Nausea/Vomiting: No. Procedure completed. Patient transferred by bed to CPRU. Vital chart was stopped. Access Site Site: Left Femoral artery Sheath Size: 6 Fr Hemostasis Method: Angio-Seal VIP ([place]) Hemostasis Success: Successful Procedure Medications Start: 8:07 AM Stop: 8:07 AM Medication: Versed 1 mg and Fentanyl 25 mcg Amount: 1 Route: I.V. Start: 8:15 AM Stop: 8:15 AM Medication: Heparin Amount: 8000 units Route: I.V. Start: 8:23 AM Stop: 8:23 AM Medication: 0.9% Saline Amount: 250 ml Route: I.V. bolus Start: 8:52 AM Stop: 8:52 AM Medication: Heparin Amount: 1000 units Route: I.V. Start: 9:26 AM Stop: 9:26 AM Medication: Heparin Amount: 1000 units Route: I.V. Start: 9:41 AM Stop: 9:41 AM Medication: Plavix Amount: 300 mg Route: P.O. I, the attending physician, have reviewed and verified all procedure medications. Yes, all medications given per verbal order History/Risk Factors Hypertension: Yes Dyslipidemia: No Peripheral Arterial Disease (PAD): No Myocardial Infarction (AL): Yes Obesity: No Renal Disease: No Tobacco Use: Former Prior Interventions PCI: Yes CABG: No Valve Surgery: No Date of PCI: 08/12/2025 Report Signatures Finalized by Parker Rosales MD on 10/26/2025 10:54 AM
--- NOTE | 2025-10-11 08:00 | W.PM.OPSFHP ---
Same Day Surgery H&P Indication for Procedure/HPI DATE OF PROCEDURE: October 11, 2025 CHIEF COMPLAINT/INDICATIONFOR SURGICAL PROCEDURE: Staged PCI of RCA and left circumflex artery PREOP DIAGNOSIS: Staged PCI of RCA and left circumflex artery PLANNED PROCEDURE: Operation Date: 10/11/25 07:00 Proposed Procedures p Percutaneous Coronary Intervention(Not Applicable) - Parker Rosales M.D 60-year-old woman with past medical history of CAD and recent anterior wall ST elevation [place]. Is here for staged PCI of RCA and possibly of left circumflex artery. Medications/Allergies* Home Medications ?Medication ?Instructions ?Recorded ?Confirmed ?Type albuterol sulfate 90 mcg/actuation See Rx Instructions .Route .COMPLEX 08/27/25 10/11/25 History aerosol inhaler pantoprazole 40 mg tablet,delayed 40 mg PO DAILY 08/27/25 10/11/25 History release Allergies/Adverse Reactions Allergy/AdvReac Type Severity Reaction Status Date / Time Pork/Porcine Containing AdvReac Mild ADR-Diarrhe Verified 10/11/25 06:20 Products a Current Medications: Generic Name Dose Route Start Last Admin Trade Name Freq PRN Reason Stop Dose Admin Sodium Chloride 1,000 mls @ 50 mls/hr 10/11/25 06:00 10/11/25 06:02 Sodium Chloride 0.9% IV 10/12/25 01:59 Not Given .Q20H ONE Pertinent History/Comorbid Conditions* Medical History (Updated 08/31/25 @ 00:00 by DENNIS Dotosn) Retroperitoneal hemorrhage Retroperitoneal hematoma Chronic heart failure with mildly reduced ejection fraction (HFmrEF) CAD (coronary artery disease) Long QT syndrome Bronchitis Primary hypertension Surgical History (Updated 08/26/25 @ 12:33 by Matti Dougherty MD) History of right hip replacement H/O tubal ligation Family History (Updated 08/03/23 @ 08:56 by Nancy Gutiérrez LPN) Hypertension Mother Social History Smoking and tobacco/nicotine status: former use of tobacco/nicotine Pertinent Exam Findings alert, oriented x 3, clear to auscultation bilaterally and regular rate & rhythm Conscious Sedation Assessment PATIENT ASSESSED PRIOR TO SEDATION, WITH NO CHANGE NOTED: Yes AIRWAY EVAL/ANESTHESIA PLAN: normal airway, ASA III, Local Anesthesia, Risks, benefits & alternatives of sedation and/or procedure discussed and Patient agrees to continue as planned ADDITIONAL INFORMATION: Moderate sedation Recommendations Risks and benefits of procedure reviewed and Patient/family agree to proceed Surgery/Procedure today (Staged PCI of RCA and left circumflex artery) Coding Level of Care Code Acute Code for Chg Fwd
--- NOTE | 2025-10-11 10:00 | PC.NURSE ---
Received the patient back from the cathode builder via bed s/p PCI of the RCA and CX. Patient drowsy but awakens easily to voice. A & 0 x 3. monitoring and evaluation advisor placed and vital signs obtained. Left Femoral access site s/p angioseal. Track ooze noted on the dressing. Will change as needed. No bleeding or hematoma noted. Groin soft. Doppled PT and DP pulses. Shani care and partial linen change done after bedpan use. Family at bedside. No concerns voiced at this time.
--- NOTE | 2025-10-11 10:25 | PC.NURSE ---
Patient requesting bedpan frequently and urinating all over herself. She requested a solorio. Dr. Rosales called and a solorio cath was ordered. Solorio was placed at 1015 with clear yellow UOP. Patient tolerated well.
--- NOTE | 2025-10-11 10:45 | PM.PROC ---
Procedure Note: Date of procedure: 10/11/25 Pre-procedure diagnosis: Staged PCI of RCA and mid Left circumflex artery Post-procedure diagnosis: other (S/p PCI of mid left circumflex artery with 1 stent. S/p PCI of RCA with 2 stents) Procedure: Successful revascularization of proximal to mid RCA with 2 stent. S/p PCI of left circumflex artery with 1 stent Dual antiplatelet therapy with aspirin and plavix Performing Provider: Parker Rosales Estimated blood loss (mL): 10 Complications: None Condition: stable Disposition: floor Coding Level of Care Code Acute Code for Jagruti Garsia
--- NOTE | 2025-10-11 15:15 | PC.NURSE ---
received from cardiac record label internship via bed at 1345.report received.pt is alert and awake and oriented x 4.denies pain at present.sr on monitor.left femoral artery cath site was closed with angioseal after procedure.site was noted to be oozing slowly with small firm bruised area in record label internship recovery.i was informed that dr callejas is aware.pressure held to site..and oozing abated.pt had received 10,000 units heparin in record label internship.left leg is warm to touch and with brisk capillary refill.palpable dp pulse noted.pt instructed in activity restrictions s/p femoral artery procedure and instructed to notify staff for any sob,numbness,pain,feelings of actively bleeding .pt verb understanding of instructions
--- NOTE | 2025-10-11 22:10 | PC.NURSE ---
Addendum entered by Gina Elder RN 10/11/25 22:31: Dr. Cormier was notified regarding FC being out and also notified MD that patient is confused. OKay to leave solorio out per Dr. Cormier. Original Note: Patient at beginning of shift attempted to use bathroom and in the process ripped out IV and solorio catheter. Patient educated on calling for assistance and bed alarm set. When this nurse went back in to restart an IV, patient screamed at nurse Cele, your the worst . All nurse did was place an IV and when this nurse ask the patient what is wrong she was upset at getting IV. IV works, blood return noted and patient educated to please call if IV starts hurting. ALso educated patient to please not call this nurse a bitch due to IV needing to be place since it was riped out.
[2025-10-12 03:11] LABS: Hematocrit 38.9 % (36-47); Hemoglobin 12.70 g/dL (11.27-16.99); Mean Corpuscular HGB Conc 32.6 g/dL (30-55); Mean Corpuscular Hemoglobin 28.4 pg (27-33); Mean Corpuscular Volume 87.0 fl (85-98); Nucleated Red Blood Cells % 0 %; Platelet Count 260 10^3/cmm (157-399); Red Blood Count 4.47 10^6/uL (3.85-5.65); White Blood Count 5.59 10^3/uL (3.29-11.43)
[2025-10-12 03:31] LABS: Anion Gap 14.2 (5-19); Blood Urea Nitrogen 10 mg/dL (8-23); Calcium 9.4 mg/dL (8.5-10.5); Carbon Dioxide 24 mmol/L (22-29); Chloride 102 mmol/L (98-107); Creatinine Clr Calc Pharmacy 77.3014; Glucose 111 mg/dL (65-115); Osmolality Calculated 284 mOsm/kg (285-295); Potassium 3.2 mmol/L (3.5-5.1); Sodium 137 mmol/L (136-145)
[2025-10-12 04:00] VITALS: BP 125/79; PULSE 101; RESP 16; TEMP 37.1; O2SAT 97
[2025-10-12 05:54] VITALS: BP 105/71; PULSE 103; O2SAT 97
--- NOTE | 2025-10-12 05:59 | PC.NURSE ---
Patient has potassium of 3.2 this AM, Dr. jones notified and received orders for 40 meq PO KCL once. Upon educating patient on potassium patient states I'm not taking it unless my doctor says to . Clarified with patient that Dr. jones was notified of the potassium level and nurse was given orders for PO potassium. Patient is agreeable to take potassium. On bedisde table this nurse also found IV that was placed earlier. Patient states I don't know when asked if it came out or if she took it out. Site had achieve hemostasis. Will clarify with MD if IV is okay to leave out.
--- NOTE | 2025-10-12 07:19 | PC.NURSE ---
Bruising observed to site. No further s/s of bleeding or hematoma formation observed.
[2025-10-12 07:52] VITALS: BP 105/71; O2SAT 97
[2025-10-12 08:22] VITALS: PULSE 82; RESP 18; O2SAT 94
--- NOTE | 2025-10-12 12:45 | P.DS_ITS ---
<Statement entered by Geovanny Santos MD - 10/27/25 21:57> Patient was evaluated and cared for in conjunction with an advanced practice practitioner. I have not personally examined the patient but reviewed the chart and all pertinent data including imaging, telemetry, and laboratory results. I discussed the patient in detail with the advanced practice practitioner. Please see their note for complete H&P testing result and agreed upon plan of care for the patient. Discharge Providers Date of Discharge: October 12, 2025 Attending Provider at Admission: Dr. Rosales Attending Provider at Discharge: Geovanny Santos MD Primary Care Provider: TARA Martinez Reason for Visit Reason for Visit: I25.10 Hospital Course Hospital Course 60-year-old female with history of ST ovation AL treated with drug-eluting stent to LAD few weeks ago, during the same angiogram it was Patient has high-grade calcified proximal and distal RCA along with high-grade mid groove ostial circumflex artery. It is the reason patient was brought in yesterday for staged PCI. She was treated with 2 drug-eluting stent to mid and proximal RCA and 1 drug-eluting stent to mid circumflex. Postop course was uncomplicated. Patient is doing fine from cardiovascular perspective denies any complaint. She would like to go home. She is already on dual antiplatelet therapy. Physical Exam Const: OTHER: GENERAL: Patient is alert, awake and oriented x3. HEART: Regular S1 and S2. No murmur, rub or gallop. LUNGS: Clear to auscultate bilaterally. CENTRAL NERVOUS SYSTEM: Grossly nonfocal. EXTREMITIES: Lower extremities with out edema bilaterally. Urinary Catheter Management: Massey: Cath Placed During This Visit: yes Reason for Continuing Indwelling Catheter: Required Immobilization for Trauma or Surgery or Anesthesia Urinary Catheter Date of Insertion: 10/11/25 Urinary Catheter Time of Insertion: 10:15 Discharge Data Studies Completed and Pending Pending at discharge Category Date Time Status [employer] MECH[employer]IC request for service Routine Exams 10/11/25 06:00 Taken Laboratory Results WBC 5.59 10^3/uL (3.29-11.43) 10/12/25 02:28 RBC 4.47 10^6/uL (3.85-5.65) 10/12/25 02:28 Hgb 12.70 g/dL (11.27-16.99) 10/12/25 02:28 Hct 38.9 % (36-47) 10/12/25 02: MCV 87.0 fl (85-98) 10/12/25 02: MCH 28.4 pg (27-33) 10/12/25 02: MCHC 32.6 g/dL (30-55) 10/12/25 02: RDW 13.1 % (12.1-15.1) 10/12/25 02:28 Plt Count 260 10^3/cmm (157-399) 10/12/25 02:28 MPV 9.6 fL (7.4-10.4) 10/12/25 02:28 Neut % (Auto) 71.8 % 10/12/25 02: Lymph % (Auto) 17.0 % 10/12/25 02: [place] % (Auto) 6.4 % 10/12/25 02: Eos % (Auto) 3.0 % 10/12/25 02: Baso % (Auto) 1.4 % 10/12/25 02:28 Neut # (Auto) 4.01 10^3/uL (1.8-7.7) 10/12/25 02:28 Lymph # (Auto) 1.0 10^3/uL (0.8-4.8) 10/12/25 02:28 [place] # (Auto) 0.4 10^3/uL (0.2-0.9) 10/12/25 02:28 Eos # (Auto) 0.2 10^3/uL (0.0-0.8) 10/12/25 02: Baso # (Auto) 0.1 10^3/uL (0.0-0.1) 10/12/25 02:28 Nucleated RBC % (auto) 0 % 10/12/25 02: Nucleated RBCs # 0.0 /100WBC 10/12/25 02:28 Sodium 137 mmol/L (136-145) 10/12/25 02:28 Potassium 3.2 mmol/L (3.5-5.1) L 10/12/25 02:28 Chloride 102 mmol/L (98-107) 10/12/25 02:28 Carbon Dioxide 24 mmol/L (22-29) 10/12/25 02:28 Anion Gap 14.2 (5-19) 10/12/25 02:28 BUN 10 mg/dL (8-23) 10/12/25 02:28 Creatinine 0.8 mg/dL (0.5-0.9) 10/12/25 02:28 GFR Calculation 73.2 mL/min (90-130) L 10/12/25 02:28 Glucose 111 mg/dL (65-115) 10/12/25 02:28 POC Glucose 138 mg/dL (70-110) H 10/11/25 21:23 Calculated Osmolality 284 mOsm/kg (285-295) L 10/12/25 02:28 Calcium 9.4 mg/dL (8.5-10.5) 10/12/25 02:28 Vitals Last Vital Signs Temp 98.7 F 10/12/25 04:00 Pulse 82 10/12/25 08:22 Resp 18 10/12/25 08:22 BP 105/71 10/12/25 07:52 Pulse Ox 94 10/12/25 08:22 O2 Del Method Room Air 10/12/25 08:22 Discharge Plan Discharge Patient Disposition: Home Prescriptions: Continued sacubitril-valsartan [Entresto] 24-26 mg tablet 1 tab PO BID Qty: 180 3RF atorvastatin 40 mg Tablet 80 mg PO BEDTIME Qty: 90 3RF nitroglycerin 0.4 mg Tablet, Sublingual 0.4 mg sublingual Q5M PRN (Reason: Chest Pain) Qty: 30 3RF cyclobenzaprine 10 mg tablet 10 mg PO TID Qty: 14 0RF pantoprazole 40 mg tablet,delayed release (DR/EC) 40 mg PO DAILY albuterol sulfate 90 mcg/actuation HFA aerosol inhaler See Rx Instructions .ROUTE .COMPLEX Rx Instructions: INHALE TWO PUFFS INTO THE LUNGS EVERY 4 TO 6 HOURS NEEDED Discontinued carvedilol 12.5 mg Tablet 12.5 mg PO BID Qty: 60 1RF clopidogrel 75 mg Tablet 75 mg PO DAILY Qty: 30 1RF amlodipine 5 mg Tablet 5 mg PO DAILY Qty: 30 1RF aspirin 81 mg Tablet,Delayed Release (Dr/Ec) 81 mg PO DAILY Qty: 30 1RF No Action aspirin 81 mg tablet,delayed release (DR/EC) 81 mg PO DAILY Qty: 90 3RF amlodipine 5 mg tablet 5 mg PO DAILY Qty: 90 3RF clopidogrel 75 mg tablet 75 mg PO DAILY Qty: 90 3RF carvedilol 12.5 mg tablet 12.5 mg PO BID Qty: 120 3RF Customer Services Coordinator OK for DC: Cardiology Referrals: Frankie Deleon FNP [Primary Care Provider, Nurse Practitioner] Referral Note: Please call office on Tuesday to schedule a hospital follow up appt in the next week Parker Rosales M.D [Physician, Cardiology] - 3 months Referral Note: We have notified your physician's clinic of the need for a follow-up appointment to be scheduled. If you have not heard from them within the next 2 business days, please call them directly. Maddy Castaneda FNP [Nurse Practitioner, Cardiology] Referral Note: We have notified your physician's clinic of the need for a follow-up appointment to be scheduled. If you have not heard from them within the next 2 business days, please call them directly. Diet: Cardiac Activity: Increase activity as tolerated Patient Instructions: Coronary Artery Disease (DC), Coronary Angioplasty (DC) Activity Restrictions/Additional Instructions: Follow-up with cardiology nurse practitioner and 7 to 10 days. Follow-up with Dr. Rosales in 3-month Print Language: Hong [place]er Discharge Date/Time: 10/12/25 13:09 Discharge Attestations Time Spent in Discharge Care*: greater than 30 min Quality Metrics Clinical Quality Measures [ Acute Myocardial Infaction { Clinical Trial Participant: No; Contraindication to aspirin: None; Aspirin prescribed; Contraindication to statin: None; Statin prescribed;}] Coding Level of Care Code Acute Code for [facility] Ady
--- NOTE | 2025-10-12 13:05 | PC.NURSE ---
Patient discharged to home. Instruction provided regarding follow up needs, no medication changes and site care restrictions. Patient and family verbalized complete understanding. Left groin site has bruising but s/s of continued bleeding or hematoma formation. Patient taken by wheelchair to private vehicle with family member by side. patient denies pain or needs. No distress observed.
[2025-10-12 13:06] VITALS: BP 105/71
== END 2025-10-12 13:09 | disposition home or self-care (01) ==
LOC: CCL 05:48 → CSU 13:45
PROVIDERS: Internal Medicine; Nurse Practitioner Family; PCP Nurse Practitioner; Visit Provider Internal Medicine Cardiovascular Disease
DX: I25.10 Atherosclerotic heart disease of native coronary artery without angina pectoris (principal); Z95.5 Presence of coronary angioplasty implant and graft; I25.2 Old myocardial infarction; Z87.891 Personal history of nicotine dependence; K21.9 Gastro-esophageal reflux disease without esophagitis; I11.0 Hypertensive heart disease with heart failure; I50.9 Heart failure, unspecified; Z82.49 Family history of ischemic heart disease and other diseases of the circulatory system; Z79.82 Long term (current) use of aspirin; Z79.02 Long term (current) use of antithrombotics/antiplatelets
CPT/HCPCS: 36415; 36416; 51702; 80048; 82962; 85025; 85347; 92978; 93454; 99152; 99153; C1725; C1753; C1760; C1769; C1874; C1887; C1894; C9600; C9601; G0269; J0461; J1644; J2250; J3010; J7030; J9999; Q0163; Q9967

== ENCOUNTER 2025-10-17 10:19 | Outpatient (CLI) | payer MEDICAID, SELFPAY ==
[2025-10-17 11:31] LABS: Anion Gap 15.6 (5-19); Blood Urea Nitrogen 18 mg/dL (8-23); Calcium 9.5 mg/dL (8.5-10.5); Carbon Dioxide 24 mmol/L (22-29); Chloride 107 mmol/L (98-107); Glucose 119 mg/dL (65-115); Osmolality Calculated 297 mOsm/kg (285-295); Potassium 4.6 mmol/L (3.5-5.1); Sodium 142 mmol/L (136-145)
== END 2025-10-17 10:20 | disposition home or self-care (01) ==
PROVIDERS: PCP Nurse Practitioner; Visit Provider Nurse Practitioner Family
DX: I10 Essential (primary) hypertension (principal); E78.2 Mixed hyperlipidemia
CPT/HCPCS: 36415; 80048

== ENCOUNTER → 2025-11-05 14:06 | Outpatient (BNVA) | payer MEDICAID, SELFPAY | PROVIDERS: PCP Nurse Practitioner; Visit Provider Nurse Practitioner Family | DX: Z51.89 Encounter for other specified aftercare (principal); I25.10 Atherosclerotic heart disease of native coronary artery without angina pectoris; Z95.5 Presence of coronary angioplasty implant and graft; I50.22 Chronic systolic (congestive) heart failure; I11.0 Hypertensive heart disease with heart failure; M17.0 Bilateral primary osteoarthritis of knee; R41.3 Other amnesia; R60.9 Edema, unspecified; N28.89 Other specified disorders of kidney and ureter; Z87.891 Personal history of nicotine dependence | CPT/HCPCS: 99214 ==